=== PATIENT | male | born 1955 | race Caucasian/White ===

== ENCOUNTER 2019-10-17 18:21 | Inpatient (IN) | payer MEDICARE, OTHER, SELFPAY ==
[2019-10-17] VITALS (36 sets, daily range): BP systolic 122–187; BP diastolic 61–116; PULSE 92–117; RESP 14–26; TEMP 36.9–37.2; O2SAT 93–100
--- NOTE | ~2019-10-17 | XR_ITS ---
EXAMINATION: XR chest 1V portable DATE: 10/18/2019 05:48 INDICATION: Endotracheal tube placement. Hypothermia protocol. TECHNIQUE: frontal view of the chest was obtained. COMPARISON: Chest radiograph dated 10/17/2019 FINDINGS: Endotracheal tube tip 3.3 cm above the deshawn. Nasogastric tube extends below the left hemidiaphragm with distal tip collimated off the study. Right internal jugular central venous catheter with distal tip in the caudal vena cava. Small lung volumes. Persistent mild perihilar and infrahilar opacities. No pleural effusion or pneumo thorax. Cardiomegaly. Internal plate and screw fixation at the proximal right humerus. IMPRESSION: 1. Small lung volumes with persistent perihilar and infrahilar opacities which could represent mild p ulmonary edema, atelectasis, pneumonia or some combination thereof. 2. Cardiomegaly. Reviewed, dictated and finalized at location A. IMPRESSION: 1. Small lung volumes with persistent perihilar and infrahilar opacities which could represent mild pulmonary edema, atelectasis, pneumonia or some combinatio n thereof. 2. Cardiomegaly.
--- NOTE | ~2019-10-17 | CT_ITS ---
EXAMINATION: CT brain wo con EXAM DATE: 10/17/2019 20:06 INDICATION: Unresponsive. Respiratory failure. TECHNIQUE: Spiral CT of the head was performed without contrast. Axial, coronal and sagittal images were reviewed. The dose-length product (DLP) for this examination was 681.00 mGy-cm. The exposure w as tailored according to patient size, and iterative reconstruction (ASIR) was used as additional dos e reduction technique. There is no prior study for comparison. FINDINGS: There is no acute intraparenchymal hemorrhage. No evidence of intraparenchymal brain mass lesion. No evidence of acute infarction. There is no mass effect or midline shift. The ventricles are normal in size. There are no extra-axial collections. There are no acute calvarial fractures. T he orbits are unremarkable. Soft tissue is unremarkable. The visualized sinuses and mastoid air marcell ls are well aerated. IMPRESSION: 1. No acute intracranial findings. Reviewed, dictated and finalized at location A.
--- NOTE | ~2019-10-17 | XR_ITS ---
EXAMINATION: XR chest port-a-cath/central EXAM DATE: 10/17/2019 22:10 INDICATION: Line placement. TECHNIQUE: Portable AP frontal chest x-ray was obtained. Comparison is made to prior examination from earlier same date. FINDINGS: Interval insertion of a right-sided IJ venous line in position. Endotracheal tube tip is 4 centimeters above the deshawn (ideal range is between 2 to 5 cm). Feeding tube is in position. There is mild cardiomegaly and possible bilateral perihilar edema or pneumonia. There are no sizable pleural effusions. There is no pneumothorax suspected. Right humeral hardware. IMPRESSION: 1. Tubes, lines in position, no evidence pneumothorax. 2. Cardiomegaly. Possible perihilar edema or pneumonia. Reviewed, dictated and finalized at location A.
--- NOTE | ~2019-10-17 | XR_ITS ---
EXAMINATION: XR chest 1V portable DATE: 10/20/2019 06:05 INDICATION: Respiratory failure TECHNIQUE: frontal view of the chest was obtained. COMPARISON: Chest radiograph dated 10/19/2019 FINDINGS: Endotracheal tube tip 4.0 cm above the deshawn. Nasogastric tube extends below the left hemidiaphragm with distal tip collimated off the study. Right internal jugular central venous catheter with distal tip at the caudal superior vena cava. Significant improvement in prior opacities in the bilateral lower lung zones particularly on the left . There is residual patchy opacities in the right mid, left lower lung zones and and bilateral perihi lar regions. Calcified nodules in the left upper lung zone consistent with old granulomatous disease. No pleural effusion or pneumothorax. Cardiomegaly. IMPRESSION: 1. Resolution of prior pleural effusions with significant improvement in bilateral lung disease which could represent atelectasis, pulmonary edema, pneumonia or some combination thereof. 2. Cardiomegaly. Reviewed, dictated and finalized at location A. IMPRESSION: 1. Resolution of prior pleural effusions with significant improvement in bilate ral lung disease which could represent atelectasis, pulmonary edema, pneumonia or some combination thereof. 2. Cardiomegaly.
--- NOTE | ~2019-10-17 | US_ITS ---
EXAMINATION: US arterial duplex LE RT DATE: 10/23/2019 13:57 INDICATION: Postprocedure hemorrhage of a circulatory system organ or structure following a cardiac c ath, bypass, or other circulatory system procedure. TECHNIQUE: Multiple grayscale and Doppler ultrasound images of the right inguinal region were obtaine d. COMPARISON: None FINDINGS: There is normal flow in right common femoral artery, superficial femoral artery, and profun da femoral artery. No pseudoaneurysm. Right common femoral vein and femoral vein are patent. There is 11.0 x 11.1 x 4.1 cm hematoma in right inguinal region. IMPRESSION: 1. No pseudoaneurysm. 2. Hematoma in right inguinal region. Reviewed, dictated and finalized at location A.
--- NOTE | ~2019-10-17 | XR_ITS ---
EXAMINATION: XR chest 1V portable DATE: 10/19/2019 06:22 INDICATION: Cardiac arrest. Intubated. TECHNIQUE: frontal view of the chest was obtained. COMPARISON: Chest radiograph dated 10/18/2019 FINDINGS: Endotracheal tube tip 5.0 cm above the deshawn. Right internal jugular central venous catheter with di stal tip at the caudal superior vena cava. Nasogastric tube extends below the left hemidiaphragm wit h distal tip collimated off the study. Gradient of hazy airspace opacities at the bilateral lower lung zones, more prominent on the left whe re there is obscuration of the left hemidiaphragm. No pneumothorax. Cardiomegaly. IMPRESSION: 1. Opacities in the bilateral lower lung zones, left greater than right, consistent with small bilate ral posteriorly layering pleural effusions with associated atelectasis and/or pneumonia. 2. Cardiomegaly. Reviewed, dictated and finalized at location A. IMPRESSION: 1. Opacities in the bilateral lower lung zones, left greater than right, consis tent with small bilateral posteriorly layering pleural effusions with associate d atelectasis and/or pneumonia. 2. Cardiomegaly.
--- NOTE | ~2019-10-17 | XR_ITS ---
EXAMINATION: XR chest 1V portable DATE: 10/21/2019 06:05 INDICATION: Respiratory failure TECHNIQUE: frontal view of the chest was obtained. COMPARISON: Chest radiograph dated 10/20/2019 FINDINGS: Right internal jugular central venous catheter with distal tip at the midsuperior vena cava. Increase d expansion of lungs which are clear with no focal airspace opacities, pulmonary edema, pleural effus ion or pneumothorax. The cardiomediastinal silhouette is normal. IMPRESSION: 1. Improved expansion of lungs with no evident acute cardiopulmonary disease. Reviewed, dictated and finalized at location A.
--- NOTE | ~2019-10-17 | XR_ITS ---
EXAMINATION: XR abdomen NG/feed tube rechec EXAM DATE: 10/17/2019 19:37 INDICATION: Feeding tube advanced. TECHNIQUE: Frontal projection(s) of the abdomen for interpretation. Comparison is made to prior exami nation from earlier same date. FINDINGS: Feeding tube projects over gastric body, expected position. There are cholecystectomy clip s. Nonobstructive bowel gas pattern. Mild thoracolumbar scoliosis. Moderate-sized lower thoracic brid ging endplate osteophytes. IMPRESSION: Feeding tube in position. Reviewed, dictated and finalized at location A. IMPRESSION: Feeding tube in position.
--- NOTE | ~2019-10-17 | XR_ITS ---
EXAMINATION: XR chest ET placement, XR abdomen NG/feed tube insert EXAM DATE: 10/17/2019 19:01 INDICATION: Cardiac arrest. TECHNIQUE: Portable AP frontal chest x-ray was obtained. KUB exam. There is no prior study for compar joey. FINDINGS: There are 2 images available, one has the ET tube in the right mainstem bronchus, the other the tube is at the deshawn. ET tube should be retracted 2 cm. Feeding tube tip in stomach but side po rt above the gastroesophageal junction, could be advanced 5-10 cm. There is pulmonary vascular congestion. The cardiac silhouette is enlarged. There may be left perihil ar edema or pneumonia. No pneumothorax or pleural effusion. There is nonobstructive bowel gas pattern . There are cholecystectomy clips. Right humeral hardware. IMPRESSION: 1. ET tube should be retracted 2-3 cm. Both lungs being aerated at present. 2. Feeding tube could be safely advanced 5-10 cm. 3. Cardiomegaly, congestion. 4. Possible left perihilar edema or pneumonia. Reviewed, dictated and finalized at location A. IMPRESSION: 1. ET tube should be retracted 2-3 cm. Both lungs being aerated at present. 2. Feeding tube could be safely advanced 5-10 cm. 3. Cardiomegaly, congestion. 4. Possible left perihilar edema or pneumonia.
--- NOTE | ~2019-10-17 | XR_ITS ---
EXAMINATION: XR chest ET placement EXAM DATE: 10/17/2019 19:37 INDICATION: Recheck ET tube. TECHNIQUE: Portable AP frontal chest x-ray was obtained. Comparison is made to prior examination from earlier same date. FINDINGS: Endotracheal tube tip is 2 centimeters above the deshawn (ideal range is between 2 to 5 cm). Feeding tube is in position. There is mild cardiomegaly and possible left perihilar developing edema or pneumonia. There are no s izable pleural effusions. There is no pneumothorax suspected. The bones and soft tissues are unre markable. IMPRESSION: 1. Tubes in position. 2. Cardiomegaly. Possible developing left perihilar edema or pneumonia. Reviewed, dictated and finalized at location A.
--- NOTE | 2019-10-17 18:00 | ECG_ITS ---
Measurements Intervals [place] Rate: 94 P: 72 FL: 140 QRS: 54 QRSD: 106 T: 58 QT: 357 QTc: 447 Interpretive Statements SINUS RHYTHM INCOMPLETE RIGHT BUNDLE BRANCH BLOCK BORDERLINE ECG Electronically Signed On 10-18-2019 7:17:05 CDT by Torrey Guzmán D.O.
--- NOTE | 2019-10-17 18:30 | PC.NURSE ---
AURELIO for propofol from Dr. Melendez
[2019-10-17 18:36] LABS: Alveolar/Arterial O2 Gradient 489.8 mmHg; Base Excess ABG -4.4 mEq/l (+/-2.0); Fractional Inspired Oxygen 100 %; HCO3 ABG 21.2 mEq/l (22.0-26.0); Oxygen Content ABG 22.8 %vol (16.0-22.0); Oxygen Saturation ABG 99.2 % (95.0-100.0); Oxyhemoglobin 98.1 % THb (90.0-100.0); PCO2 ABG 41.2 mmHg (35.0-45.0); PO2 FiO2 Ratio Arterial Blood 1.82 %; Total Hemoglobin 16.3 g/dL (12.0-18.0)
--- NOTE | 2019-10-17 18:36 | ED.GENADULT ---
HPI - General Adult General Chief complaint: Cardiac Arrest/CPR Stated complaint: ROSC Source: EMS History of Present Illness HPI narrative: Patient is a 64 y/o female brought in by EMS for cardiac arrest. Per EMS, family noticed that patient was foaming at the mouth , and then became unresponsive. CPR was not started prior to EMS arrival. EMS arrived in about 5 minutes and noticed that patient was pulseness and apneic. CPR was started immediately after EMS arrival. When monitor was applied, it showed PEA, then V fib. Patient was defibrillated x 1. He was given Epi and Narcan. ROSC was achieved in about 2 minutes after EMS arrival. Patient is unresponsive and unable to provide additional history. states that patient came back from outside complaining of not feeling good then his eyes rolled back, he was shaking and became unresponsive. states that patient drinks heavily at baseline. Related Data Home Medications Medication Instructions Recorded Confirmed hydrochlorothiazide 12.5 mg PO DAILY 10/17/19 10/18/19 losartan 100 mg PO DAILY 10/17/19 10/18/19 sildenafil 100 mg PO DAILY PRN 10/17/19 10/18/19 simvastatin 40 mg PO DAILY 10/17/19 10/18/19 pantoprazole 40 mg PO DAILY 10/18/19 10/18/19 trazodone 50 mg PO HS 10/18/19 10/18/19 Allergies Allergy/AdvReac Type Severity Reaction Status Date / Time latex Allergy Hives Verified 10/17/19 18:37 Review of Systems Review of Systems: ROS unobtainable: Yes unobtainable due to medical condition PMFSH Past Medical History Medical History Essential hypertension GERD (gastroesophageal reflux disease) Hyperlipidemia Obesity Surgical History Surgical History History of bilateral inguinal hernia repair Status post right rotator cuff repair Family History Family History (Updated 10/18/19 @ 11:46 by David Stewart MD) Father Leukemia Other Unknown family medical history Social History Social History Social History: Primary care physician: Dr. Andrei Claire Cods status: Full Code Smoking packs per day: 1 Smoking cigarettes per day: 20.0 Years smoked: 10 Smoking pack-years: 10.00 Smoking status: Former smoker Alcohol intake: current Drinks per week: 30 Alcohol use details: He drinks approximately 5 alcoholic beverages a day. Substance use: unknown Substance use type: marijuana Other substance usage details: medical marijuana chocolates Last use: 10/16/2019 Living arrangements: with family Additional living arrangements comments: the patient lives in [place] with his of 28 years. He has 3 biologic children and 2 step children who are all adults. 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 Gender identity (if verbalized by the patient): Male Spiritual care concerns: No Exam Const: General: no acute distress and well developed Orientation/consciousness: Other orientation findings (unrepsonsive) HENMT: Head: normocephalic Ears: external ears normal General nose exam: Normal external nose present Mouth: Yes other (ETT in place) Eyes: General: appearance normal, both eyes and all related structures Conjunctivae: conjunctivae normal Neck: Neck: normal visual inspection and full ROM Chest: Chest palpation & inspection: normal inspection of the chest and no tenderness Resp: Effort & Inspection: normal respiratory effort Auscultation: clear to auscultation bilaterally Cardio: Rate: regular rate Rhythm: regular rhythm GI: GI Palp: No abdominal tenderness and Yes Soft to palpation Skin: General skin exam: normal color and turgor normal Neuro: General: other (unresponsive) Extrem: General: normal to inspection, full ROM and no pedal edema Psych:
[2019-10-17 18:37] LABS: Arterial Blood Gas PEEP 5 cmH2O; Arterial Blood Gas Tidal Volume 450 ml; Arterial Blood Gas Vent Mode ASSIST CONTROL; Arterial Blood Gas Ventilator rate 18 /MIN; Device VENTILATOR; Modified Allen's Test Pass; Site Drawn RIGHT RADIAL
--- NOTE | 2019-10-17 18:40 | PC.NURSE ---
Propofol increased to 10mcg, pt moving and withdrawing to pain
--- NOTE | 2019-10-17 18:49 | PC.NURSE ---
Propofol increased to 15 mcg, pt still moving
--- NOTE | 2019-10-17 18:53 | PC.NURSE ---
Taking pt to Ct at this time, respiratory escorting
[2019-10-17 19:07] LABS: Basophils Absolute Auto 0.1 K/mm3 (0.0-0.1); Basophils Percent Auto 0.8 % (0.2-1.2); Eosinophils Absolute Auto 0.1 K/mm3 (0-0.3); Eosinophils Percent Auto 0.6 % (0-4.4); Hematocrit 48.8 % (42.0-52.0); Hemoglobin 15.8 g/dL (14.0-18.0); Immature Granulocyte Absolute 0.11 K/mm3 (0.00-0.031); Immature Granulocyte Percent A 1.4 % (0-0.5); Lymphocytes Absolute Auto 1.09 K/mm3 (0.9-3.2); Lymphocytes Percent Auto 13.7 % (18.3-44.2); Mean Corpuscular HGB Conc 32.4 g/dl (32-36); Mean Corpuscular Hemoglobin 31.6 pg (26-34); Mean Corpuscular Volume 97.6 fl (80-100); Mean Platelet Volume 9.4 fl (7.4-10.4); Monocytes Absolute Auto 0.5 K/mm3 (0.1-0.6); Neutrophils Absolute Auto 6.2 K/mm3 (1.3-6.7); Neutrophils Percent Auto 77.5 % (45.5-73.1); Platelet Count Result 258 k/mm3 (150-375); Red Cell Distribution Width 13.4 % (11.5-14.5)
[2019-10-17 19:18] LABS: Alanine Aminotransferase 326 U/L (4-50); Albumin Level 4.1 g/dL (3.5-5.1); Alkaline Phosphatase 138 U/L (38-126); Anion Gap 10 mmol/L (8-16); Aspartate Amino Transferase 599 U/L (17-59); Bilirubin,Total 0.6 mg/dL (0.2-1.3); Blood Urea Nitrogen 21 mg/dL (9-20); Calcium 8.7 mg/dL (8.4-10.2); Carbon Dioxide 23 mmol/L (22-30); Chloride 108 mmol/L (98-107); Cholesterol 218 mg/dL (0-200); Estimated CRCL calculation 84 ml/min; Estimated Glomerular Filt Rate > 60; Glucose 227 mg/dL (75-110); HDL Direct 66 mg/dL; Potassium 3.3 mmol/L (3.4-5.0); Sodium 141 mmol/L (137-145); Triglycerides 102 mg/dL (<150)
[2019-10-17 19:21] LABS: Prothrombin Time 13.1 Seconds (11.1-14.7)
[2019-10-17 19:22] LABS: Partial Thromboplastin Time 29.2 SECONDS (22.3-36.8)
[2019-10-17 19:29] LABS: LDL Cholesterol Direct 135 mg/dL
--- NOTE | 2019-10-17 19:30 | PC.NURSE ---
Per verbal order of Dr. Melendez, ETT withdrawn 3 cm and is now secured at 24 cm at the lips. OG tube was also advanced to 65 cm at this time per verbal order of Dr. Melendez. Xray was obtained to verify correct position of both tubes
[2019-10-17 19:31] LABS: Add Urine Microscopic? YES; Appearance Urine Cloudy (Clear); Bacteria Urine Trace /hpf; Bilirubin Urine Negative (Negative); Blood Urine 1+ (Negative); Color Urine Yellow (Yellow); Glucose Urine UA 1+ mg/dL (Negative); Hyaline Casts Urine 20-29 /lpf; Ketones Urine Negative (Negative); Leukocyte Esterase Ur Negative LEU/UL (Negative); Mucus Urine Rare /lpf; Nitrate Urine Negative (Negative); Protein Urine 3+ mg/dL (Negative); Squamous Epithelial Cell Urine Rare /hpf (Few); Urobilinogen Urine Negative mg/dL (<2.0)
[2019-10-17] MEDS: PROPOFOL IV EMULSION 100 ML 32.4 MG IV CONT ×2 (19:40→21:30)
--- NOTE | 2019-10-17 19:42 | PC.NURSE ---
Per verbal order of Dr. Al EDP, increase propofol drip to 50 mcg/kg/min.
--- NOTE | 2019-10-17 20:06 | PC.NURSE ---
vent setting at this time: Vt: 450 PEEP: 5 FIO2: 0.4 Rate: 18
[2019-10-17 20:11] LABS: Amphetamine Screen Urine Negative (Negative); Barbiturate Screen Urine Negative (Negative); Benzodiazepines Screen Urine Negative (Negative); Cannabinoid Screen Urine Positive (Negative); Cocaine Screen Urine Negative (Negative); Methadone Screen Urine Negative (Negative); Opiate Screen Urine Positive (Negative); Phencyclidine Screen Urine Negative (Negative)
[2019-10-17] MEDS: AMIODARONE 150 MG/D5W 100 ML 150 MG/100 ML BAG 600 MG IV CONT (20:59)
[2019-10-17] MEDS: AMIODARONE 360 MG/D5W 200 ML 360 MG/200 ML BAG 33.3 MG IV CONT (21:19)
[2019-10-17] MEDS: POTASSIUM CHLORIDE 20 MEQ TABLET PO (21:20)
[2019-10-17 21:36] LABS: Ethanol < 10 mg/dL (<10)
--- NOTE | 2019-10-17 22:24 | PM.IMHP ---
H&P: HPI History of Present Illness Date/Time: 10/17/19 21:20 Chief complaint: Unresponsive, found pulseless Narrative: Héctor Funes is a 64 year old male with a past medical history of hypertension, hyperlipidemia and chronic pain who presented to the ER from home after his witnessed him go unresponsive patient was found to be pulseless on EMS arrival to the home. Source of information is patient is 's report. his reports that the patient had when out to walk the dog and was not out for very long when he returned home and stated that it was too hot. She went to get him a glass of cold water. When she came back in the room the patient was in his chair with his eyes rolled back and had bubbles coming from his mouth. His called EMS but was unable to initiate CPR she has a fractured extremity. EMS arrived in about 5 minutes At which time the patient was pulseless and apneic. CPR was initiated,monitor was applied and the patient received a dose of Narcan and epinephrine. Monitor initially demonstrated PEA. On repeat evaluation the patient was in VFib. the patient was subsequently defibrillated x1 and had return of perfusing rhythm. The patient was intubated in the field with a 7.5 ET tube measuring 22 cm at the lip. The patient was reportedly bucking at the tube on arrival to the ER. At the time of my evaluation the patient was on propofol amiodarone and had received a dose of oral potassium. The patient's reports that the patient had not been complaining of any shortness of breath or chest pain. He does have chronic right shoulder pain for which she is on muscle relaxers and Calvin. he had not been having any recent cough or congestion. He has been dieting and exercising and has lost 35 lb since April. She reports that he has been exercising regularly until a couple months ago whenever she broke her hand. He then was exercising less but had worked out this morning without difficulty. The patient does drink alcohol to excess and usually drinks about 5 alcoholic beverages a night. His alcohol consumption has increased over the last several months. She has not noticed him being irritable or having symptoms of alcohol withdrawal. Family History: Unknown as the patient is adopted. He does have 3 biologic children the reportedly healthy. The patient was seen and examined while in the ER. Review of Systems Review of Systems: ROS unobtainable: Yes unobtainable due to endotracheal tube PMFSH Past Medical History Medical History Essential hypertension GERD (gastroesophageal reflux disease) Hyperlipidemia Obesity Surgical History Surgical History History of bilateral inguinal hernia repair Status post right rotator cuff repair Family History Family History Other Unknown family medical history Social History Social History (Updated 10/17/19 @ 22:43 by Naima You DO) Social History: Primary care physician: Dr. Andrei Claire Cods status: Full Code Smoking packs per day: 1 Smoking cigarettes per day: 20.0 Years smoked: 10 Smoking pack-years: 10.00 Smoking status: Former smoker Alcohol intake: current Drinks per week: 35 Alcohol use details: He drinks approximately 5 alcoholic beverages a day. Substance use: current Substance use type: marijuana Other substance usage details: medical marijuana chocolates Last use: 10/16/2019 Living arrangements: with family Additional living arrangements comments: the patient lives in [place] with his of 28 years. He has 3 biologic children and 2 step children who are all adults. 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 Gender identity (if verbalized by the patie
[2019-10-18] VITALS (71 sets, daily range): BP systolic 120–204; BP diastolic 39–103; PULSE 34–98; RESP 18–26; TEMP 32.2–37.8; O2SAT 95–100; BMI 33.8; BMI 33.7
[2019-10-18] MEDS: PROPOFOL IV EMULSION 100 ML 32.4 MG IV CONT ×3 (00:10→06:26)
--- NOTE | 2019-10-18 02:05 | P.PCNBED_ITS ---
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 The procedure was converted to a right femoral art line. Arterial blood return was obtained with ultrasound guidance. Sterile ultrasound probe cover was utilized. Guidewire threaded without difficulty. Catheter was placed over guidewire. After the art line was sutured in place and dressed we did have a brief loss of waveform. The dressing was removed in the catheter was repositioned and secured. Waveform returned.
[2019-10-18] MEDS: CISATRACURIUM BESYLATE 20 MG/10 ML VIAL 16.2 MG IV PUSH (02:29)
[2019-10-18 02:30] LABS: Alveolar/Arterial O2 Gradient 138.2 mmHg; Base Excess ABG -1.8 mEq/l (+/-2.0); Carboxyhemoglobin 0.2 % THb (0-2.0); Fractional Inspired Oxygen 40 %; HCO3 ABG 22.7 mEq/l (22.0-26.0); Methemoglobin ABG 0.4 %THb (0-1.5); Oxygen Content ABG 22.4 %vol (16.0-22.0); Oxygen Saturation ABG 97.7 % (95.0-100.0); Oxyhemoglobin 96.9 % THb (90.0-100.0); PO2 ABG 103.3 mmHg (80.0-100.0); PO2 FiO2 Ratio Arterial Blood 2.58 %; Reduced Hemoglobin 2.5 %THb (0-5.0); Total Hemoglobin 16.4 g/dL (12.0-18.0); pH ABG 7.394 (7.350-7.450)
[2019-10-18 02:33] LABS: Device VENTILATOR; Site Drawn ARTLINE
[2019-10-18 02:34] LABS: Arterial Blood Gas PEEP 5 cmH2O; Arterial Blood Gas Tidal Volume 450 ml; Arterial Blood Gas Vent Mode CMV; Arterial Blood Gas Ventilator rate 18 /MIN
[2019-10-18 02:57] LABS: Glucose Point of Care 126 (65-105)
[2019-10-18] MEDS: AMIODARONE 360 MG/D5W 200 ML 360 MG/200 ML BAG 16.7 MG IV CONT (03:45)
[2019-10-18 04:33] LABS: Glucose Point of Care 121 (65-105)
[2019-10-18 05:01] LABS: Glucose Point of Care 124 (65-105)
[2019-10-18 05:02] LABS: Hematocrit 47.5 % (42.0-52.0); Hemoglobin 15.8 g/dL (14.0-18.0); Mean Corpuscular HGB Conc 33.3 g/dl (32-36); Mean Corpuscular Hemoglobin 31.9 pg (26-34); Mean Platelet Volume 9.1 fl (7.4-10.4); Platelet Count Result 234 k/mm3 (150-375); Red Blood Count 4.95 M/mm3 (4.6-6.20); Red Cell Distribution Width 13.6 % (11.5-14.5); White Blood Count 9.6 K/mm3 (4.5-10.0)
--- NOTE | 2019-10-18 05:08 | PC.NURSE ---
This patient, Héctor Funes, was admitted to Intensive Care Unit-8 at 0000. Patient/family oriented to hospital policies and general routines including ID bracelet, bed and alarms, visiting hours, pain management, procedures, bathroom and other care routines, personal items, smoking policy, room service/diet, and visiting hours. Valuables list has been completed. Information on how to activate the Rapid Response Team has been discussed. Patient/Family are encouraged to report perceived risks to care and to ask questions if they do not understand what they are told or what they should do.
[2019-10-18 05:13] LABS: Lactic Acid 1.1 mmol/L (0.7-2.1)
[2019-10-18 05:19] LABS: Prothrombin Time 12.7 Seconds (11.1-14.7)
[2019-10-18 05:20] LABS: Partial Thromboplastin Time 31.6 SECONDS (22.3-36.8)
[2019-10-18 05:22] LABS: NT Pro B Type Natriuretic Pept 1120 PG/ML (5-100)
[2019-10-18 05:31] LABS: Anion Gap 7 mmol/L (8-16); Blood Urea Nitrogen 20 mg/dL (9-20); Calcium 8.5 mg/dL (8.4-10.2); Carbon Dioxide 24 mmol/L (22-30); Chloride 107 mmol/L (98-107); Estimated CRCL calculation 137 ml/min; Estimated Glomerular Filt Rate > 60; Glucose 150 mg/dL (75-110); Potassium 3.5 mmol/L (3.4-5.0); Sodium 138 mmol/L (137-145)
--- NOTE | 2019-10-18 06:00 | ECG_ITS ---
Measurements Intervals [place] Rate: 54 P: 27 AR: 180 QRS: 50 QRSD: 114 T: 47 QT: 567 QTc: 539 Interpretive Statements SINUS BRADYCARDIA INCOMPLETE RIGHT BUNDLE BRANCH BLOCK PROLONGED QT INTERVAL BASELINE WANDER- V6 ABNORMAL ECG Electronically Signed On 10-18-2019 14:07:29 CDT by Torrey Guzmán D.O.
[2019-10-18 06:05] LABS: Glucose Point of Care 126 (65-105)
[2019-10-18 07:01] LABS: Glucose Point of Care 132 (65-105)
[2019-10-18 07:45] LABS: Alveolar/Arterial O2 Gradient 150.5 mmHg; Carboxyhemoglobin 0.1 % THb (0-2.0); Fractional Inspired Oxygen 40 %; HCO3 ABG 20.4 mEq/l (22.0-26.0); Methemoglobin ABG 0.3 %THb (0-1.5); Oxygen Content ABG 22.7 %vol (16.0-22.0); Oxygen Saturation ABG 98.2 % (95.0-100.0); Oxyhemoglobin 97.5 % THb (90.0-100.0); PCO2 ABG 26.8 mmHg (35.0-45.0); PO2 ABG 103.9 mmHg (80.0-100.0); Reduced Hemoglobin 2.1 %THb (0-5.0); Total Hemoglobin 16.5 g/dL (12.0-18.0); pH ABG 7.499 (7.350-7.450)
[2019-10-18 07:46] LABS: Site Drawn ARTLINE
[2019-10-18 07:47] LABS: Arterial Blood Gas Minute Volume 0 LPM; Arterial Blood Gas PEEP 5 cmH2O; Arterial Blood Gas Pressure Support 0 cmH2O; Arterial Blood Gas Tidal Volume 450 ml; Arterial Blood Gas Vent Mode CMV; Arterial Blood Gas Ventilator rate 20 /MIN; Device VENTILATOR; Peak Inspiratory Pressure 0 cmH2O
[2019-10-18 08:05] LABS: Glucose Point of Care 150 (65-105)
--- NOTE | 2019-10-18 08:16 | WPDCNINT ---
Assessment and Plan Assessment and plan (1) Acute respiratory failure: Code(s): J96.00 - Acute respiratory failure, unspecified whether with hypoxia or hypercapnia Status: Acute Assessment and Plan: Acute Respiratory failure secondary to V fib cardiac arrest intubated and now on mechanical ventilation Continue full mechanical ventilation support to prevent hypoxemia/hypercarbia and end organ damage. ABG and PCXR reviewed and will repeat in am decrease tidal volume to 400 and respiratory rate to 18 Low tidal volume ventilation strategy to prevent volutrauma hold Lasix at this time (2) Cardiac arrest with successful resuscitation: Code(s): I46.9 - Cardiac arrest, cause unspecified Status: Acute Assessment and Plan: Likely primary cardiac arrest due to ventricular fibrillation check cardiac echocardiogram cardiology consulted patient was started on amiodarone infusion which had to be stopped this morning due to extreme sinus bradycardia (3) Ventricular fibrillation: Code(s): I49.01 - Ventricular fibrillation Status: Acute Assessment and Plan: no major electrolyte abnormality to explain may have coronary artery disease cardiology consult and echocardiogram (4) Sinus bradycardia: Code(s): R00.1 - Bradycardia, unspecified Status: Acute Assessment and Plan: extreme sinus bradycardia once patient was on hypothermia protocol with rate dropping to 30s amiodarone discontinued propofol was changed to Versed infusion atropine 1 mg IV given monitor (5) Hypertension: Qualifiers: Hypertension type: essential hypertension Qualified Code(s): I10 - Essential (primary) hypertension Code(s): I10 - Essential (primary) hypertension Status: Acute Assessment and Plan: arterial line was placed for closer blood pressure monitoring treat as needed with p.r.n. (6) Hyperlipidemia: Code(s): E78.5 - Hyperlipidemia, unspecified Status: Acute Assessment and Plan: simvastatin held due to elevated LFTs (7) NSTEMI (non-ST elevated myocardial infarction): Code(s): I21.4 - Non-ST elevation (NSTEMI) myocardial infarction Status: Acute Assessment and Plan: small rise in troponin after presentation but has trended upwards EKG did not show any ST elevation. this could be secondary to his VFib arrest, CPR, epinephrine and defibrillation but since troponin level have increased and patient is unable to provide any history due to sedation and paralysis, I will empirically start Lovenox and aspirin until cardiology evaluation hold beta-gerry and statin due to above-mentioned reasons await cardiology evaluation (8) Anoxic brain injury: Code(s): G93.1 - Anoxic brain damage, not elsewhere classified Status: Acute Assessment and Plan: head CT negative on presentation patient was moving but not purposeful on therapeutic hypothermia protocol will reassess once we warmed Additional Plan DVT prophylaxis - Lovenox Stress ulcer prophylaxis - Pepcid Nutrition - NPO Code Status - Full Code Total Critical Care Time - 45 minutes Due to a high probability of clinically significant, life threatening deterioration, the patient required my highest level of preparedness to intervene emergently and I personally spent this critical care time directly and personally managing the patient. This critical care time included obtaining a history; examining the patient; pulse oximetry; ordering and review of studies; arranging urgent treatment with development of a management plan; evaluation of patient's response to treatment; frequent reassessment; and discussions with other providers. It was exclusive of separately billable procedures and treating other patients and teaching time. Please see Assessment and Plan section and the rest of the note for further information on pa
[2019-10-18] MEDS: ATROPINE SULFATE 1 MG/ML VIAL IV PUSH (08:25)
[2019-10-18] MEDS: FAMOTIDINE 20 MG/2 ML VIAL IV PUSH (08:50)
[2019-10-18] MEDS: ASPIRIN 325 MG TABLET PO (08:51)
[2019-10-18] MEDS: ENOXAPARIN 120 MG/0.8 ML SYRINGE 110 MG SUB-Q ×2 (08:52→20:36)
[2019-10-18] MEDS: MIDAZOLAM HCL 2 MG/2 ML VIAL 4 MG IV PUSH ×2 (09:00→09:45)
[2019-10-18 09:29] LABS: Glucose Point of Care 121 (65-105)
[2019-10-18 09:40] LABS: Lactic Acid 0.8 mmol/L (0.7-2.1)
[2019-10-18 10:22] LABS: Glucose Point of Care 111 (65-105)
[2019-10-18 11:01] LABS: Glucose Point of Care 102 (65-105)
[2019-10-18 11:12] LABS: Potassium 3.1 mmol/L (3.4-5.0)
--- NOTE | 2019-10-18 11:30 | PM.CNCAR ---
Assessment and Plan Assessment and plan (1) NSTEMI (non-ST elevated myocardial infarction): Code(s): I21.4 - Non-ST elevation (NSTEMI) myocardial infarction Status: Acute Assessment and Plan: 1 uriel per kg enoxaparin q.12 hours. Aspirin 325 mg daily. No beta-gerry secondary to bradycardia. Discontinue amiodarone for now. 2D echocardiogram Doppler. Replace potassium and magnesium. An additional 40 mEq IV potassium x1. Keep K greater than 4 and magnesium greater than 2 (2) Cardiac arrest with successful resuscitation: Code(s): I46.9 - Cardiac arrest, cause unspecified Status: Acute Assessment and Plan: undergoing cooling protocol. Likely some degree of anoxic injury. If /when meaningful recovery, will pursue angiogram (3) Hypertension: Qualifiers: Hypertension type: essential hypertension Qualified Code(s): I10 - Essential (primary) hypertension Code(s): I10 - Essential (primary) hypertension Status: Acute (4) Hyperlipidemia: Code(s): E78.5 - Hyperlipidemia, unspecified Status: Acute Assessment and Plan: simvastatin 40 mg p.o. daily to be started (5) Sinus bradycardia: Code(s): R00.1 - Bradycardia, unspecified Status: Acute Assessment and Plan: Hemodynamically stable History of Present Illness History of Present Illness Consult date/time: 10/18/19 11:30 Requesting physician: Paramjit Nixon MD Consult reason: Other ( VF arrest) Reason For Visit: Unresponsive, found pulseless Narrative: date of service 10/18/2019 Reason for admission: Cardiac arrest History: Patient is a 64-year-old male who does have high blood pressure and high cholesterol but no known previous cardiac history. He went outside to walk his dog yesterday and felt hot. He came back inside and asked his for a glass of water. She brought the water 2 him in shortly thereafter she witnessed him become unresponsive. Unfortunately she recently sustained a broken arm and she could not perform CPR. EMS was immediately called. Patient was found to be pulseless and there was a thought that he was in PE a. Epinephrine was given and then later VF was demonstrated. He did retained a pulse and meaningful rhythm following defibrillation. He is currently undergoing cooling protocol. his EKG is quite unremarkable. Reportedly no significant history a recent history of chest pain, shortness of breath, syncope, presyncope, paroxysmal nocturnal dyspnea, orthopnea, edema palpitations Review of Systems Review of Systems: All systems reviewed & are unremarkable except as noted in HPI and below Constitutional: Constitutional: Denies body ache(s) Eyes: Eyes: Denies blurry vision ENT: Denies epistaxis Cardiovascular: Cardiovascular: Denies chest pain Respiratory: Respiratory: Denies dyspnea Gastrointestinal: Gastrointestinal: Denies abdominal pain Genitourinary: Genitourinary: Denies dysuria Musculoskeletal: Musculoskeletal: Denies myalgias Integumentary/Breasts: Skin/Breast: Denies dry skin and Denies unusual bruising Neurologic: Denies headache(s) Psychiatric: Psychiatric: Denies behavioral changes Endocrine: Endocrine: Denies fatigue Hematologic/Lymphatic: Hematologic/Lymphatic: Denies easy bleeding Allergic/Immunologic: Allergic/Immunologic: Denies lip swelling PMFSH Past Medical History Medical History Essential hypertension GERD (gastroesophageal reflux disease) Hyperlipidemia Obesity Surgical History Surgical History History of bilateral inguinal hernia repair Status post right rotator cuff repair Family History Family History (Updated 10/18/19 @ 11:46 by David Stewart MD) Father Leukemia Other Unknown family medical history Social History Social History (Reviewed 10/18/19 @ 11:35 by Oscar
[2019-10-18 11:43] LABS: Alveolar/Arterial O2 Gradient 109.6 mmHg; Base Excess ABG -2.5 mEq/l (+/-2.0); Carboxyhemoglobin 0.3 % THb (0-2.0); Device VENTILATOR; Fractional Inspired Oxygen 40 %; HCO3 ABG 20.3 mEq/l (22.0-26.0); Methemoglobin ABG 0.3 %THb (0-1.5); Oxygen Content ABG 22.2 %vol (16.0-22.0); Oxygen Saturation ABG 98.9 % (95.0-100.0); Oxyhemoglobin 97.8 % THb (90.0-100.0); PCO2 ABG 30.4 mmHg (35.0-45.0); PO2 ABG 140.6 mmHg (80.0-100.0); PO2 FiO2 Ratio Arterial Blood 3.52 %; Reduced Hemoglobin 1.6 %THb (0-5.0); Site Drawn ARTLINE; pH ABG 7.442 (7.350-7.450)
[2019-10-18 11:44] LABS: Arterial Blood Gas Minute Volume 0 LPM; Arterial Blood Gas PEEP 5 cmH2O; Arterial Blood Gas Pressure Support 0 cmH2O; Arterial Blood Gas Tidal Volume 400 ml; Arterial Blood Gas Vent Mode CMV; Arterial Blood Gas Ventilator rate 18 /MIN; Peak Inspiratory Pressure 0 cmH2O
[2019-10-18 11:48] LABS: Alanine Aminotransferase 284 U/L (4-50); Albumin Level 3.9 g/dL (3.5-5.1); Alkaline Phosphatase 114 U/L (38-126); Aspartate Amino Transferase 200 U/L (17-59); Bilirubin,Total 0.6 mg/dL (0.2-1.3)
[2019-10-18 12:55] LABS: Glucose Point of Care 112 (65-105)
[2019-10-18] MEDS: SIMVASTATIN 20 MG TABLET 40 MG FEED TUBE (13:34)
--- NOTE | 2019-10-18 14:00 | ECG_ITS ---
Measurements Intervals [place] Rate: 76 P: 33 NH: 173 QRS: 51 QRSD: 112 T: 21 QT: 461 QTc: 521 Interpretive Statements SINUS RHYTHM INCOMPLETE RIGHT BUNDLE BRANCH BLOCK PROLONGED QT INTERVAL ABNORMAL ECG Electronically Signed On 10-18-2019 9:50:41 CDT by Torrey Guzmán D.O.
[2019-10-18 14:14] LABS: Glucose Point of Care 83 (65-105)
[2019-10-18 15:13] LABS: Glucose Point of Care 99 (65-105)
[2019-10-18 15:38] LABS: Creatine Kinase 538 U/L (55-170); Lactic Acid 0.5 mmol/L (0.7-2.1)
[2019-10-18 15:47] LABS: Alveolar/Arterial O2 Gradient 110.1 mmHg; Base Excess ABG -1.6 mEq/l (+/-2.0); Carboxyhemoglobin 0.3 % THb (0-2.0); Fractional Inspired Oxygen 40 %; HCO3 ABG 20.2 mEq/l (22.0-26.0); Methemoglobin ABG 0.3 %THb (0-1.5); Oxygen Content ABG 22.4 %vol (16.0-22.0); Oxyhemoglobin 97.9 % THb (90.0-100.0); PCO2 ABG 27.6 mmHg (35.0-45.0); PO2 ABG 143.4 mmHg (80.0-100.0); PO2 FiO2 Ratio Arterial Blood 3.58 %; Reduced Hemoglobin 1.5 %THb (0-5.0); Total Hemoglobin 16.1 g/dL (12.0-18.0); pH ABG 7.483 (7.350-7.450)
[2019-10-18 15:48] LABS: Site Drawn ARTLINE
[2019-10-18 15:49] LABS: Arterial Blood Gas PEEP 5 cmH2O; Arterial Blood Gas Tidal Volume 400 ml; Arterial Blood Gas Vent Mode CMV; Arterial Blood Gas Ventilator rate 18 /MIN; Device VENTILATOR
--- NOTE | 2019-10-18 16:26 | PM.IMPN ---
Progress Note: A&P Assessment and Plan (1) Cardiac arrest with successful resuscitation: Code(s): I46.9 - Cardiac arrest, cause unspecified Status: Acute Assessment and Plan: Likely primary cardiac arrest due to cardiac arrhythmia and/or AK. Patient is being admitted to the ICU for cooling protocol. He is intubated and sedated. Pt is on amiodarone drip Watch BMp mg and phos levels Pt had VF arrest leaving him with some anoxic brain injury Once warmed pt will have Anoxic brain testing (2) Hypertension: Qualifiers: Hypertension type: essential hypertension Qualified Code(s): I10 - Essential (primary) hypertension Code(s): I10 - Essential (primary) hypertension Status: Acute Assessment and Plan: Continue to monitor blood pressures closely. Subjective Date/time seen: 10/18/19 16:26 Interval history: 64 year old male with a past medical history of hypertension, hyperlipidemia and chronic pain who presented to the ER from home after his witnessed him go unresponsive patient was found to be pulseless on EMS arrival to the home. Pt had VF arrest leaving him with some anoxic brain injury by his bedside Pt undergoing warming with bear hugger in ICU Review of Systems Review of Systems: ROS unobtainable: Yes unobtainable due to medical condition Exam Narrative: Exam Narrative: Bear hugger Dificulty to fully exam under bear hugger Pt is bradycardic and tilted to one side Objective Data Vital Signs Vital Signs: Vital Signs - 24 hr 10/17/19 18:09 10/17/19 18:28 10/17/19 18:39 Temperature Pulse Rate 94 95 94 Respiratory Rate 20 Blood Pressure 123/89 Pulse Oximetry 100 98 10/17/19 18:42 10/17/19 19:20 10/17/19 19:21 Temperature Pulse Rate 95 105 H 105 H Respiratory Rate 14 Blood Pressure 122/61 141/98 H Pulse Oximetry 97 96 10/17/19 19:30 10/17/19 19:33 10/17/19 19:40 Temperature Pulse Rate 105 H 105 H 113 H Respiratory Rate 22 H 18 19 Blood Pressure 147/102 H Pulse Oximetry 98 93 10/17/19 19:45 10/17/19 20:06 10/17/19 20:08 Temperature Pulse Rate 110 H 114 H 115 H Respiratory Rate 23 H 18 21 H Blood Pressure 165/116 H Pulse Oximetry 98 96 98 10/17/19 20:15 10/17/19 20:20 10/17/19 20:21 Temperature Pulse Rate 113 H 112 H 92 Respiratory Rate 22 H 20 Blood Pressure 154/96 H Pulse Oximetry 96 97 96 10/17/19 20:49 10/17/19 20:59 10/17/19 21:00 Temperature 37.0 C Pulse Rate 114 H 117 H 117 H Respiratory Rate 21 H 20 Blood Pressure 187/93 H 187/93 H Pulse Oximetry 97 97 10/17/19 21:15 10/17/19 21:16 10/17/19 21:18 Temperature Pulse Rate 111 H 111 H 110 H Respiratory Rate 20 18 Blood Pressure 171/99 H 171/99 H Pulse Oximetry 97 97 10/17/19 21:19 10/17/19 21:30 10/17/19 21:31 Temperature Pulse Rate 109 H 109 H 109 H Respiratory Rate 19 19 Blood Pressure 171/99 H 172/96 H Pulse Oximetry 97 97 10/17/19 21:45 10/17/19 21:46 10/17/19 22:00 Temperature Pulse Rate 107 H 108 H 111 H Respiratory Rate 20 21 H 23 H Blood Pressure 155/89 H Pulse Oximetry 97 98 97 10/17/19 22:01 10/17/19 22:15 10/17/19 22:17 Temperature 37.2 C Pulse Rate 110 H 103 H 100 Respiratory Rate 25 H 20 Blood Pressure 183/101 H 136/88 Pulse Oximetry 97 98 98 10/17/19 22:30 10/17/19 22:31 10/17/19 22:45 Temperature Pulse Rate 97 98 97 Respiratory Rate 16 17 21 H Blood Pressure 132/80 Pulse Oximetry 95 97 97 10/17/19 22:46 10/17/19 23:01 10/17/19 23:16 Temperature 36.9 C Pulse Rate 98 96 93 Respiratory Rate 22 H 26 H 21 H Blood Pressure 141/90 H 127/87 126/90 Pulse Oximetry 99 98 98 10/18/19 00:00 10/18/19 00:10 10/18/19 00:15 Temperature 37.0 C Pulse Rate 90 88 98 Respiratory Rate 20 20 Blood Pressure 129/82 Pulse Oximetry 95 97 10/18/19 01:00 10/18/19 02:00 10/18/19 02:11 Temperature 37.7 C H Pulse Rate 8
[2019-10-18] MEDS: DEXTROSE 50% 25 GM/50 ML SYRINGE IV PUSH (17:34)
[2019-10-18 17:58] LABS: Glucose Point of Care 113 (65-105)
[2019-10-18 17:58] LABS: Glucose Point of Care 67 (65-105)
[2019-10-18 18:31] LABS: Glucose Point of Care 123 (65-105)
[2019-10-18 18:49] LABS: Anion Gap 6 mmol/L (8-16); Blood Urea Nitrogen 17 mg/dL (9-20); Calcium 8.2 mg/dL (8.4-10.2); Carbon Dioxide 26 mmol/L (22-30); Chloride 106 mmol/L (98-107); Creatine Kinase 492 U/L (55-170); Estimated CRCL calculation 162 ml/min; Estimated Glomerular Filt Rate > 60; Glucose 134 mg/dL (75-110); Magnesium 2.1 mg/dL (1.6-2.3); Potassium 2.6 mmol/L (3.4-5.0); Sodium 138 mmol/L (137-145)
[2019-10-18 18:54] LABS: Hemoglobin 15.7 g/dL (14.0-18.0); Mean Corpuscular HGB Conc 33.4 g/dl (32-36); Mean Corpuscular Hemoglobin 31.8 pg (26-34); Mean Corpuscular Volume 95.1 fl (80-100); Mean Platelet Volume 9.3 fl (7.4-10.4); Platelet Count Result 209 k/mm3 (150-375); Prothrombin Time 12.4 Seconds (11.1-14.7); Red Blood Count 4.94 M/mm3 (4.6-6.20); Red Cell Distribution Width 13.4 % (11.5-14.5); White Blood Count 5.4 K/mm3 (4.5-10.0)
[2019-10-18 18:55] LABS: Partial Thromboplastin Time 43.5 SECONDS (22.3-36.8)
[2019-10-18 19:35] LABS: Base Excess ABG 2.7 mEq/l (+/-2.0); Carboxyhemoglobin 0.1 % THb (0-2.0); Fractional Inspired Oxygen 40 %; Methemoglobin ABG 0.4 %THb (0-1.5); Oxygen Content ABG 22.7 %vol (16.0-22.0); Oxygen Saturation ABG 98.8 % (95.0-100.0); Oxyhemoglobin 97.8 % THb (90.0-100.0); PCO2 ABG 32.3 mmHg (35.0-45.0); PO2 ABG 128.1 mmHg (80.0-100.0); Reduced Hemoglobin 1.7 %THb (0-5.0); Total Hemoglobin 16.4 g/dL (12.0-18.0); pH ABG 7.507 (7.350-7.450)
[2019-10-18 19:36] LABS: Site Drawn ARTLINE
[2019-10-18 19:37] LABS: Arterial Blood Gas PEEP 5 cmH2O; Arterial Blood Gas Tidal Volume 400 ml; Arterial Blood Gas Vent Mode CMV; Arterial Blood Gas Ventilator rate 18 /MIN; Device VENTILATOR
[2019-10-18] MEDS: POTASSIUM CHLORIDE 20 MEQ PACKET (FOR LIQUID) 40 MEQ PO (20:31)
[2019-10-18 21:08] LABS: Glucose Point of Care 103 (65-105)
[2019-10-18 21:08] LABS: Glucose Point of Care 97 (65-105)
[2019-10-18 21:09] LABS: Glucose Point of Care 88 (65-105)
[2019-10-18 22:20] LABS: Lactic Acid 0.7 mmol/L (0.7-2.1)
[2019-10-18 22:56] LABS: Alveolar/Arterial O2 Gradient 63.1 mmHg; Base Excess ABG -2.5 mEq/l (+/-2.0); Carboxyhemoglobin 0.3 % THb (0-2.0); Fractional Inspired Oxygen 30 %; HCO3 ABG 20.7 mEq/l (22.0-26.0); Methemoglobin ABG 0.4 %THb (0-1.5); Oxygen Content ABG 22.1 %vol (16.0-22.0); Oxygen Saturation ABG 98.3 % (95.0-100.0); Oxyhemoglobin 97.1 % THb (90.0-100.0); PCO2 ABG 32.1 mmHg (35.0-45.0); PO2 ABG 113.1 mmHg (80.0-100.0); PO2 FiO2 Ratio Arterial Blood 3.77 %; Reduced Hemoglobin 2.2 %THb (0-5.0); Total Hemoglobin 16.1 g/dL (12.0-18.0); pH ABG 7.428 (7.350-7.450)
[2019-10-18 22:57] LABS: Device VENTILATOR; Site Drawn ARTLINE
[2019-10-18 22:58] LABS: Arterial Blood Gas PEEP 5 cmH2O; Arterial Blood Gas Tidal Volume 350 ml; Arterial Blood Gas Vent Mode CMV; Arterial Blood Gas Ventilator rate 18 /MIN
[2019-10-18 23:01] LABS: Glucose Point of Care 71 (65-105)
[2019-10-18 23:01] LABS: Glucose Point of Care 77 (65-105)
[2019-10-18] MEDS: DEXTROSE 5%/0.9% SOD CHL 1,000 ML 75 ML IV CONT (23:36)
[2019-10-19] VITALS (66 sets, daily range): BP systolic 93–172; BP diastolic 60–95; PULSE 46–127; RESP 18; TEMP 32.4–37.3; O2SAT 96–100
[2019-10-19 00:36] LABS: Creatine Kinase 566 U/L (55-170)
--- NOTE | 2019-10-19 02:01 | PC.NURSE ---
0145 10/19/19 Blanketrol malfunction; temp probe and cord replaced.
[2019-10-19] MEDS: PANTOPRAZOLE SODIUM IV 40 MG VIAL IV PUSH ×3 (02:55→19:37)
[2019-10-19 03:07] LABS: Lactic Acid 0.6 mmol/L (0.7-2.1)
[2019-10-19 03:16] LABS: Glucose Point of Care 88 (65-105)
[2019-10-19 03:16] LABS: Glucose Point of Care 90 (65-105)
[2019-10-19 03:16] LABS: Glucose Point of Care 90 (65-105)
[2019-10-19 03:16] LABS: Glucose Point of Care 97 (65-105)
[2019-10-19 04:47] LABS: Basophils Percent Auto 0.8 % (0.2-1.2); Eosinophils Absolute Auto 0.1 K/mm3 (0-0.3); Eosinophils Percent Auto 1.4 % (0-4.4); Hematocrit 48.3 % (42.0-52.0); Hemoglobin 15.5 g/dL (14.0-18.0); Immature Granulocyte Absolute 0.02 K/mm3 (0.00-0.031); Immature Granulocyte Percent A 0.4 % (0-0.5); Lymphocytes Absolute Auto 0.47 K/mm3 (0.9-3.2); Lymphocytes Percent Auto 9.1 % (18.3-44.2); Mean Corpuscular HGB Conc 32.1 g/dl (32-36); Mean Corpuscular Volume 96.6 fl (80-100); Mean Platelet Volume 9.4 fl (7.4-10.4); Monocytes Absolute Auto 0.5 K/mm3 (0.1-0.6); Monocytes Percent Auto 8.9 % (2.6-8.5); Neutrophils Absolute Auto 4.1 K/mm3 (1.3-6.7); Neutrophils Percent Auto 79.4 % (45.5-73.1); Platelet Count Result 189 k/mm3 (150-375); Red Cell Distribution Width 13.6 % (11.5-14.5); White Blood Count 5.1 K/mm3 (4.5-10.0)
[2019-10-19 05:00] LABS: Alveolar/Arterial O2 Gradient 71.3 mmHg; Base Excess ABG 0.3 mEq/l (+/-2.0); HCO3 ABG 24.5 mEq/l (22.0-26.0); Oxygen Saturation ABG 97.6 % (95.0-100.0); PCO2 ABG 38.3 mmHg (35.0-45.0); PO2 ABG 97.6 mmHg (80.0-100.0); Total Hemoglobin 16.2 g/dL (12.0-18.0); pH ABG 7.423 (7.350-7.450)
[2019-10-19 05:01] LABS: Alanine Aminotransferase 216 U/L (4-50); Albumin Level 3.6 g/dL (3.5-5.1); Alkaline Phosphatase 101 U/L (38-126); Anion Gap 7 mmol/L (8-16); Aspartate Amino Transferase 124 U/L (17-59); Bilirubin,Total 0.8 mg/dL (0.2-1.3); Blood Urea Nitrogen 15 mg/dL (9-20); Calcium 8.3 mg/dL (8.4-10.2); Carbon Dioxide 28 mmol/L (22-30); Chloride 106 mmol/L (98-107); Creatine Kinase 585 U/L (55-170); Estimated CRCL calculation 137 ml/min; Estimated Glomerular Filt Rate > 60; Glucose 120 mg/dL (75-110); Magnesium 2.1 mg/dL (1.6-2.3); Phosphorus 2.8 mg/dL (2.5-4.5); Potassium 3.2 mmol/L (3.4-5.0); Sodium 141 mmol/L (137-145)
[2019-10-19 05:01] LABS: Carboxyhemoglobin 0.3 % THb (0-2.0); Device VENTILATOR; Fractional Inspired Oxygen 30 %; Methemoglobin ABG 0.3 %THb (0-1.5); Oxyhemoglobin 96.4 % THb (90.0-100.0); PO2 FiO2 Ratio Arterial Blood 3.25 %; Site Drawn ARTLINE
[2019-10-19 05:03] LABS: Arterial Blood Gas PEEP 5 cmH2O; Arterial Blood Gas Tidal Volume 350 ml; Arterial Blood Gas Vent Mode CMV; Arterial Blood Gas Ventilator rate 18 /MIN
[2019-10-19 05:28] LABS: INR 1.1; Prothrombin Time 13.6 Seconds (11.1-14.7)
[2019-10-19 05:29] LABS: Partial Thromboplastin Time 48.6 SECONDS (22.3-36.8)
[2019-10-19 06:54] LABS: Glucose Point of Care 102 (65-105)
[2019-10-19 06:54] LABS: Glucose Point of Care 100 (65-105)
[2019-10-19 06:54] LABS: Glucose Point of Care 106 (65-105)
--- NOTE | 2019-10-19 07:01 | PC.NURSE ---
rewarming started at 0700
--- NOTE | 2019-10-19 08:00 | ECHO_ITS ---
Patient Info Name: Héctor Funes Age: 64 years : 1955 Gender: Male Ht: 72 in Wt: 238 lbs BSA: 2.37 m2 HR: 70 bpm BP: 122 / 71 mmHg Heart Rhythm: Sinus Rhythm Technical Quality: Good Exam Date: 10/19/2019 11:47 AM Exam Location: [facility] Patient Status: Inpatient Admit Date: 10/17/2019 Staff Ordering Physician: Naima You DO Supervisor Rod Placing: Otis Whaley RDCS Attending Provider: Naima You DO Referring Physician: Kenyatta URBINA; Exam Type: CA echo dop color flow w con Study Info Indications I49.01 - Ventricular fibrillation Complete two-dimensional, color flow and Doppler transthoracic echocardiogram is performed with contrast to opacify the left ventricle and to improve the deliniation of the left ventricle endocardial borders. Strain analysis performed. Contrast/Agitated Saline Contrast/Ag. Saline: Definity Amount: 3.00 ml Administered By: Tino Antoine RN Existing IV Access: Yes History/Risk Factors Vfib arrest at home; NSTEMI, HTN, EtOH. Summary 1. Left ventricular chamber dimension is normal. 2. Left ventricular systolic function is normal, estimated at 55-60%. 3. There is mildly increased left ventricular wall thickness. 4. The left ventricular diastolic function is grade I diastolic dysfunction. 5. Global longitudinal strain is abnormal at -13 %. 6. There is mild mitral valve regurgitation. 7. There is mild tricuspid valve regurgitation. 8. The aortic root size at the sinus of Valsalva is mildly dilated. Left Ventricle Left ventricular chamber dimension is normal. Left ventricular systolic function is normal, estimated at 55-60%. There is mildly increased left ventricular wall thickness. The left ventricular diastolic function is grade I diastolic dysfunction. Global longitudinal strain is abnormal at -13 %. Right Ventricle Right ventricular chamber dimension is normal. Right ventricular systolic function is normal. Left Atria Left atrial chamber dimension is normal. Right Atria Right atrial chamber dimension is normal. Atrial Septum Intact interatrial septum visualized by color flow imaging. Aortic Valve The aortic valve is trileaflet. There is mild aortic valve sclerosis. There is no aortic valve stenosis. There is trace aortic valve regurgitation. Pulmonic Valve The pulmonic valve is normal. There is no pulmonic valve stenosis. There is trace pulmonic regurgitation. Mitral Valve The mitral valve has thickened leaflets. There is no mitral valve stenosis. There is mild mitral valve regurgitation. Tricuspid Valve The tricuspid valve leaflets are normal. There is no significant tricuspid valve stenosis. There is mild tricuspid valve regurgitation. Pericardium/Pleural The pericardium appears normal. There is no pericardial effusion. Inferior Vena Cava Normal inferior vena cava with <50% collapse upon inspiration consistent with normal right atrial pressure, 5 mmHg. Aorta The aortic root size at the sinus of Valsalva is mildly dilated. The prox ascending aorta size is normal. Left Ventricular Outflow Tract Name Value Normal LVOT 2D LVOT Diameter
[2019-10-19 08:21] LABS: Alveolar/Arterial O2 Gradient 51.9 mmHg; Base Excess ABG -1.8 mEq/l (+/-2.0); Carboxyhemoglobin 0.2 % THb (0-2.0); Fractional Inspired Oxygen 30 %; HCO3 ABG 22.6 mEq/l (22.0-26.0); Methemoglobin ABG 0.4 %THb (0-1.5); Oxygen Content ABG 22.4 %vol (16.0-22.0); Oxygen Saturation ABG 98.3 % (95.0-100.0); Oxyhemoglobin 97.1 % THb (90.0-100.0); PCO2 ABG 37.6 mmHg (35.0-45.0); PO2 ABG 117.8 mmHg (80.0-100.0); PO2 FiO2 Ratio Arterial Blood 3.93 %; Reduced Hemoglobin 2.3 %THb (0-5.0); Total Hemoglobin 16.3 g/dL (12.0-18.0); pH ABG 7.397 (7.350-7.450)
[2019-10-19 08:22] LABS: Arterial Blood Gas Vent Mode CMV; Arterial Blood Gas Ventilator rate 18 /MIN; Device VENTILATOR; Peak Inspiratory Pressure 0 cmH2O; Site Drawn ARTLINE
[2019-10-19 08:23] LABS: Arterial Blood Gas Minute Volume 0 LPM; Arterial Blood Gas PEEP 5 cmH2O; Arterial Blood Gas Pressure Support 0 cmH2O; Arterial Blood Gas Tidal Volume 350 ml
[2019-10-19 08:26] LABS: Glucose Point of Care 107 (65-105)
--- NOTE | 2019-10-19 09:00 | WPDINTPN ---
Progress Note: A&P Assessment and Plan (1) Acute respiratory failure: Code(s): J96.00 - Acute respiratory failure, unspecified whether with hypoxia or hypercapnia Status: Acute Assessment and Plan: Acute Respiratory failure secondary to V fib cardiac arrest intubated and now on mechanical ventilation Continue full mechanical ventilation support to prevent hypoxemia/hypercarbia and end organ damage. ABG and PCXR reviewed and will repeat in am decrease tidal volume to 350 and respiratory rate to 18 in response to alkalosis on ABG last night Low tidal volume ventilation strategy to prevent volutrauma hold Lasix at this time (2) Cardiac arrest with successful resuscitation: Code(s): I46.9 - Cardiac arrest, cause unspecified Status: Acute Assessment and Plan: Likely primary cardiac arrest due to ventricular fibrillation check cardiac echocardiogram cardiology consulted patient was started on amiodarone infusion which had to be stopped this morning due to extreme sinus bradycardia (3) Ventricular fibrillation: Code(s): I49.01 - Ventricular fibrillation Status: Acute Assessment and Plan: no major electrolyte abnormality to explain may have coronary artery disease cardiology consult and echocardiogram (4) Sinus bradycardia: Code(s): R00.1 - Bradycardia, unspecified Status: Acute Assessment and Plan: extreme sinus bradycardia once patient was on hypothermia protocol with rate dropping to 30s amiodarone was discontinued propofol had to be changed to Versed infusion atropine 1 mg IV given yesterday since then rate has improved and now as patient has been rewarming heart rate has improved to 60s continue to monitor (5) Hypertension: Qualifiers: Hypertension type: essential hypertension Qualified Code(s): I10 - Essential (primary) hypertension Code(s): I10 - Essential (primary) hypertension Status: Acute Assessment and Plan: arterial line was placed for closer blood pressure monitoring treat as needed with p.r.n. with hydralazine (6) Hyperlipidemia: Code(s): E78.5 - Hyperlipidemia, unspecified Status: Acute Assessment and Plan: simvastatin held due to elevated LFTs will resume once liver enzymes are close to normal (7) NSTEMI (non-ST elevated myocardial infarction): Code(s): I21.4 - Non-ST elevation (NSTEMI) myocardial infarction Status: Acute Assessment and Plan: small rise in troponin after presentation but has trended upwards EKG did not show any ST elevation. this could be secondary to his VFib arrest, CPR, epinephrine and defibrillation but since troponin level have increased and patient is unable to provide any history due to sedation and paralysis, patient wasl empirically started Lovenox and aspirin continue as per Cardiology hold beta-gerry and statin due to above-mentioned reasons patient seen by Cardiology and further evaluation depending on his neuro status (8) Anoxic brain injury: Code(s): G93.1 - Anoxic brain damage, not elsewhere classified Status: Acute Assessment and Plan: head CT negative on presentation patient was moving but not purposeful patient is on therapeutic hypothermia protocol and is now being reformed since 7:00 a.m. plan to discontinue paralytic and then sedation once patient is removed and assess neuro status (9) Hypokalemia: Code(s): E87.6 - Hypokalemia Status: Acute Assessment and Plan: low potassium was replaced yesterday. Likely from hypothermia and should resolve once patient is reformed will recheck BMP post rewarming (10) Hypoglycemia: Code(s): E16.2 - Hypoglycemia, unspecified Status: Acute Assessment and Plan: patient started on D5 normal saline overnight follow blood sugars. Will continue until enteral tube feeds are started
[2019-10-19 09:04] LABS: Glucose Point of Care 123 (65-105)
[2019-10-19] MEDS: ENOXAPARIN 120 MG/0.8 ML SYRINGE 110 MG SUB-Q ×2 (09:24→19:37)
[2019-10-19] MEDS: SIMVASTATIN 20 MG TABLET 40 MG FEED TUBE (09:26)
[2019-10-19] MEDS: ASPIRIN 325 MG TABLET PO (09:26)
[2019-10-19 09:41] LABS: Lactic Acid 0.7 mmol/L (0.7-2.1)
--- NOTE | 2019-10-19 10:05 | PM.PNCARD ---
Progress Note: A&P Assessment and Plan (1) NSTEMI (non-ST elevated myocardial infarction): Code(s): I21.4 - Non-ST elevation (NSTEMI) myocardial infarction Status: Acute Assessment and Plan: 1 uriel per kg enoxaparin q.12 hours. Aspirin 325 mg daily. potassium chloride 40 mEq IV potassium x1. Keep K greater than 4 and magnesium greater than 2 (2) Cardiac arrest with successful resuscitation: Code(s): I46.9 - Cardiac arrest, cause unspecified Status: Acute Assessment and Plan: undergoing cooling protocol. Likely some degree of anoxic injury. If /when meaningful recovery, will pursue angiogram (3) Hypertension: Qualifiers: Hypertension type: essential hypertension Qualified Code(s): I10 - Essential (primary) hypertension Code(s): I10 - Essential (primary) hypertension Status: Acute (4) Hyperlipidemia: Code(s): E78.5 - Hyperlipidemia, unspecified Status: Acute Assessment and Plan: simvastatin 40 mg p.o. daily to be started (5) Sinus bradycardia: Code(s): R00.1 - Bradycardia, unspecified Status: Acute Assessment and Plan: Hemodynamically stable Subjective Date/time seen: 10/19/19 10:05 Interval history: 64 year old male with a past medical history of hypertension, hyperlipidemia and chronic pain who presented to the ER from home after his witnessed him go unresponsive patient was found to be pulseless on EMS arrival to the home. Pt had VF arrest leaving him with some anoxic brain injury by his bedside Date of service 10/19/2019: Patient is still intubated sedated, on paralytics. Undergoing rewarming protocol Review of Systems Review of Systems: All systems reviewed & are unremarkable except as noted in HPI and below Constitutional: Constitutional: Denies body ache(s), Denies fatigue and Denies headache(s) Eyes: Eyes: Denies blurry vision ENT: Denies headache(s), Denies lip swelling and Denies epistaxis Cardiovascular: Cardiovascular: Denies chest pain and Denies dyspnea Respiratory: Respiratory: Denies dyspnea Gastrointestinal: Gastrointestinal: Denies abdominal pain Genitourinary: Genitourinary: Denies dysuria Musculoskeletal: Musculoskeletal: Denies myalgias Integumentary/Breasts: Skin/Breast: Denies dry skin and Denies unusual bruising Neurologic: Denies behavioral changes and Denies headache(s) Psychiatric: Psychiatric: Denies behavioral changes Endocrine: Endocrine: Denies fatigue Hematologic/Lymphatic: Hematologic/Lymphatic: Denies easy bleeding Allergic/Immunologic: Allergic/Immunologic: Denies lip swelling Exam Narrative: Exam Narrative: Currently intubated, sedated, paralyzed and now rewarming Const: General: comfortable HENMT: General nose exam: no epistaxis Eyes: Sclera: sclerae normal Neck: Neck: supple Chest: Other: no chest deformities are known or seen Resp: Auscultation: clear to auscultation bilaterally Cardio: Rate: regular rate Rhythm: regular rhythm Skin: General skin exam: normal color Neuro: Other: patient is currently paralyzed, intubated and sedated Extrem: General: no edema and no pedal edema Psych: Affect: normal affect Other: intubated and sedated Objective Data Vital Signs Vital Signs: Vital Signs - 24 hr 10/18/19 11:00 10/18/19 11:24 10/18/19 12:00 Temperature 33.3 C L 33.3 C L Pulse Rate 55 L 68 44 L Respiratory Rate 18 18 Blood Pressure 175/82 H 158/60 H Pulse Oximetry 100 100 100 10/18/19 13:00 10/18/19 14:00 10/18/19 14:57 Temperature 33.6 C L 34.2 C L Pulse Rate 56 L 49 L 47 L Respiratory Rate 18 18 Blood Pressure 124/67 160/76 H Pulse Oximetry 100 100 100 10/18/19 15:00 10/18/19 15:50 10/18/19 16:00 Temperature 32.9 C L 32.5 C L Pulse Rate 46 L 55 L 46 L Respiratory Rate 18 18 Blood Pressure 165/80 H 153/78 H Pulse Oximetry 100 100 100 10/18/19 16:56 10/18/19 16:57
[2019-10-19] MEDS: PERFLUTREN LIPID MICROSPHERES 1.5 ML VIAL DILUTED TO 10 ML TOTAL VOLUME IV PUSH (12:16)
[2019-10-19 12:27] LABS: Glucose Point of Care 105 (65-105)
[2019-10-19 12:27] LABS: Glucose Point of Care 121 (65-105)
[2019-10-19 12:27] LABS: Glucose Point of Care 121 (65-105)
--- NOTE | 2019-10-19 12:52 | PCDIET ---
ICU Rounding Note: Patient NPO undergoing rewarming. MD to possibly start tube feedings later today once rewarmed and stable. Recommendation for Vital 1.2 at goal of 65mL/hr (1716kcal, 107g protein over 22 hours/day) given to Brandie ALARCON. Last recorded weight is 113.1kg which is stable. Bowel Motility: No documented BM as of yet. Labs Reviewed: Glu (123), K (3.2), Alb (3.6), Ca (8.3) Meds Noted: Nimbex, Fentanyl, Protonix, Novolog Versed, D5NS at 75mL/hr Additional Notes: No open wounds documented. Recommend continued K+ replacement, as medically appropriate. Following daily in ICU rounds. Assessing/reassessing every Thursday/Thursday.
[2019-10-19] MEDS: DEXTROSE 5%/0.9% SOD CHL 1,000 ML 75 ML IV CONT (12:57)
[2019-10-19 14:14] LABS: Creatine Kinase 401 U/L (55-170)
[2019-10-19 15:02] LABS: Glucose Point of Care 100 (65-105)
[2019-10-19 15:02] LABS: Glucose Point of Care 104 (65-105)
[2019-10-19] MEDS: CENTRAL LINE FLUSH 10 ML IV PUSH ×2 (15:03→19:38)
[2019-10-19 15:25] LABS: Anion Gap 4 mmol/L (8-16); Blood Urea Nitrogen 14 mg/dL (9-20); Carbon Dioxide 27 mmol/L (22-30); Chloride 106 mmol/L (98-107); Estimated CRCL calculation 137 ml/min; Estimated Glomerular Filt Rate > 60; Glucose 109 mg/dL (75-110); Potassium 3.6 mmol/L (3.4-5.0); Sodium 137 mmol/L (137-145)
[2019-10-19] MEDS: PROPOFOL IV EMULSION 100 ML 19.4 MG IV CONT ×2 (16:58→22:04)
--- NOTE | 2019-10-19 17:04 | PM.IMPN ---
Progress Note: A&P Assessment and Plan (1) Cardiac arrest with successful resuscitation: Code(s): I46.9 - Cardiac arrest, cause unspecified Status: Acute Assessment and Plan: Likely primary cardiac arrest due to cardiac arrhythmia and/or MD. Pt is intubated Pt had VF arrest leaving him with some anoxic brain injury pt will have Anoxic brain testing tomorrow (2) Hypertension: Qualifiers: Hypertension type: essential hypertension Qualified Code(s): I10 - Essential (primary) hypertension Code(s): I10 - Essential (primary) hypertension Status: Acute Assessment and Plan: Continue to monitor blood pressures closely. Additional Plan Subjective Date/time seen: 10/19/19 17:04 Interval history: 64 year old male with a past medical history of hypertension, hyperlipidemia and chronic pain who presented to the ER from home after his witnessed him go unresponsive patient was found to be pulseless on EMS arrival to the home. Pt had VF arrest leaving him with some anoxic brain injury Pts temp is better today Awaiting brain scan tomorrow Review of Systems Review of Systems: ROS unobtainable: Yes unobtainable due to medical condition Exam Narrative: Exam Narrative: Pt is moving all 4 limbs vitals are better RRR chest is clear legs non edematous Objective Data Vital Signs Vital Signs: Vital Signs - 24 hr 10/18/19 17:14 10/18/19 18:00 10/18/19 19:00 Temperature 34.1 C L 33.2 C L Pulse Rate 60 57 L 43 L Respiratory Rate 18 18 Blood Pressure 151/70 H 165/85 H Pulse Oximetry 100 100 100 10/18/19 19:39 10/18/19 20:00 10/18/19 20:16 Temperature 32.2 C L Pulse Rate 44 L 42 L 40 L Respiratory Rate 18 Blood Pressure 177/97 H Pulse Oximetry 100 100 100 10/18/19 20:25 10/18/19 21:00 10/18/19 21:39 Temperature 32.2 C L 32.6 C L Pulse Rate 42 L 62 40 L Respiratory Rate 18 18 18 Blood Pressure 177/97 H 130/69 Pulse Oximetry 100 100 100 10/18/19 22:00 10/18/19 22:24 10/18/19 22:25 Temperature 34.1 C L Pulse Rate 59 L 59 L 58 L Respiratory Rate 18 18 18 Blood Pressure 138/74 136/73 Pulse Oximetry 100 10/18/19 22:27 10/18/19 22:29 10/18/19 22:50 Temperature Pulse Rate 58 L 58 L 56 L Respiratory Rate 18 18 Blood Pressure Pulse Oximetry 100 10/18/19 23:00 10/19/19 00:00 10/19/19 01:00 Temperature 34.1 C L 34.0 C L 33.2 C L Pulse Rate 57 L 60 58 L Respiratory Rate 18 18 18 Blood Pressure 133/72 137/74 131/70 Pulse Oximetry 100 100 100 10/19/19 02:00 10/19/19 02:14 10/19/19 02:15 Temperature 34.9 C L Pulse Rate 73 69 69 Respiratory Rate 18 18 18 Blood Pressure 139/74 Pulse Oximetry 100 10/19/19 02:58 10/19/19 03:00 10/19/19 03:03 Temperature 34.9 C L Pulse Rate 67 67 67 Respiratory Rate 18 18 Blood Pressure 153/78 H 153/78 H Pulse Oximetry 100 100 10/19/19 03:47 10/19/19 04:00 10/19/19 05:00 Temperature 34.0 C L 33.1 C L Pulse Rate 61 65 56 L Respiratory Rate 18 18 18 Blood Pressure 172/88 H 154/83 H Pulse Oximetry 100 100 10/19/19 05:24 10/19/19 05:25 10/19/19 06:00 Temperature 34.2 C L Pulse Rate 66 70 68 Respiratory Rate 18 18 18 Blood Pressure 148/80 H 153/80 H Pulse Oximetry 100 10/19/19 06:14 10/19/19 06:15 10/19/19 06:51 Temperature Pulse Rate 67 68 64 Respiratory Rate 18 18 18 Blood Pressure 159/88 H Pulse Oximetry 10/19/19 06:54 10/19/19 07:26 10/19/19 08:00 Temperature 34.6 C L 34.5 C L Pulse Rate 66 63 67 Respiratory Rate 18 18 18 Blood Pressure 163/86 H 161/93 H Pulse Oximetry 100 100 10/19/19 08:04 10/19/19 08:07 10/19/19 08:59 Temperature Pulse Rate 67 63 67 Respiratory Rate 18 18 Blood Pressure 161/93 H Pulse Oximetry 100 10/19/19 09:00 10/19/19 09:07 10/19/19 09:11 Temperature 33.5 C L Pulse Rate 54 L 63 56 L Respiratory Rate 18 18 18 Blood Pressure 165/89 H 164/91 H Pulse Oxi
[2019-10-19 17:59] LABS: Glucose Point of Care 97 (65-105)
[2019-10-19 17:59] LABS: Glucose Point of Care 104 (65-105)
[2019-10-19 19:03] LABS: Creatine Kinase 320 U/L (55-170)
[2019-10-19 23:00] LABS: Glucose Point of Care 72 (65-105)
[2019-10-19 23:41] LABS: Alveolar/Arterial O2 Gradient 82.5 mmHg; Base Excess ABG 0.6 mEq/l (+/-2.0); Carboxyhemoglobin 0.3 % THb (0-2.0); Fractional Inspired Oxygen 30 %; HCO3 ABG 25.6 mEq/l (22.0-26.0); Methemoglobin ABG 0.5 %THb (0-1.5); Oxygen Content ABG 20.7 %vol (16.0-22.0); Oxyhemoglobin 94.8 % THb (90.0-100.0); PCO2 ABG 42.3 mmHg (35.0-45.0); PO2 ABG 81.7 mmHg (80.0-100.0); PO2 FiO2 Ratio Arterial Blood 2.72 %; Reduced Hemoglobin 4.4 %THb (0-5.0); Total Hemoglobin 15.5 g/dL (12.0-18.0)
[2019-10-19 23:42] LABS: Arterial Blood Gas Vent Mode CMV; Arterial Blood Gas Ventilator rate 18 /MIN; Device VENTILATOR; Site Drawn ARTLINE
[2019-10-19 23:43] LABS: Arterial Blood Gas PEEP 5 cmH2O; Arterial Blood Gas Tidal Volume 350 ml
[2019-10-20] VITALS (25 sets, daily range): BP systolic 111–168; BP diastolic 68–89; PULSE 94–122; RESP 15–26; TEMP 37.4–38.6; O2SAT 89–100
[2019-10-20] MEDS: DEXTROSE 5%/0.9% SOD CHL 1,000 ML 75 ML IV CONT (00:59)
[2019-10-20] MEDS: PROPOFOL IV EMULSION 100 ML 13 MG IV CONT (03:41)
[2019-10-20 04:26] LABS: Alveolar/Arterial O2 Gradient 83.7 mmHg; Base Excess ABG -2.6 mEq/l (+/-2.0); Carboxyhemoglobin 0.1 % THb (0-2.0); Fractional Inspired Oxygen 30 %; HCO3 ABG 22.5 mEq/l (22.0-26.0); Methemoglobin ABG 0.4 %THb (0-1.5); Oxygen Content ABG 19.3 %vol (16.0-22.0); Oxygen Saturation ABG 95.9 % (95.0-100.0); Oxyhemoglobin 95.1 % THb (90.0-100.0); PCO2 ABG 40.3 mmHg (35.0-45.0); PO2 ABG 82.9 mmHg (80.0-100.0); PO2 FiO2 Ratio Arterial Blood 2.76 %; Reduced Hemoglobin 4.4 %THb (0-5.0); Total Hemoglobin 14.4 g/dL (12.0-18.0); pH ABG 7.365 (7.350-7.450)
[2019-10-20 04:27] LABS: Arterial Blood Gas Vent Mode CMV; Arterial Blood Gas Ventilator rate 18 /MIN; Device VENTILATOR; Modified Allen's Test Pass; Site Drawn RIGHT RADIAL
[2019-10-20 04:28] LABS: Arterial Blood Gas PEEP 5 cmH2O; Arterial Blood Gas Pressure Support 0 cmH2O; Arterial Blood Gas Tidal Volume 350 ml
[2019-10-20] MEDS: DEXTROSE 50% 25 GM/50 ML SYRINGE IV PUSH (05:09)
[2019-10-20] MEDS: CENTRAL LINE FLUSH 10 ML IV PUSH ×3 (05:10→21:07)
[2019-10-20 05:18] LABS: Glucose Point of Care 69 (65-105)
[2019-10-20 05:26] LABS: Hematocrit 43.5 % (42.0-52.0); Hemoglobin 13.8 g/dL (14.0-18.0); Mean Corpuscular HGB Conc 31.7 g/dl (32-36); Mean Corpuscular Hemoglobin 31.4 pg (26-34); Mean Corpuscular Volume 99.1 fl (80-100); Mean Platelet Volume 9.6 fl (7.4-10.4); Platelet Count Result 207 k/mm3 (150-375); Red Blood Count 4.39 M/mm3 (4.6-6.20); Red Cell Distribution Width 13.8 % (11.5-14.5); White Blood Count 6.2 K/mm3 (4.5-10.0)
[2019-10-20 05:34] LABS: Alanine Aminotransferase 118 U/L (4-50); Albumin Level 3.2 g/dL (3.5-5.1); Alkaline Phosphatase 77 U/L (38-126); Anion Gap 5 mmol/L (8-16); Aspartate Amino Transferase 56 U/L (17-59); Bilirubin,Total 0.2 mg/dL (0.2-1.3); Blood Urea Nitrogen 17 mg/dL (9-20); Calcium 7.8 mg/dL (8.4-10.2); Carbon Dioxide 26 mmol/L (22-30); Chloride 107 mmol/L (98-107); Estimated CRCL calculation 94 ml/min; Estimated Glomerular Filt Rate > 60; Glucose 132 mg/dL (75-110); Magnesium 1.7 mg/dL (1.6-2.3); Phosphorus 3.9 mg/dL (2.5-4.5); Potassium 3.8 mmol/L (3.4-5.0); Sodium 138 mmol/L (137-145)
[2019-10-20 05:42] LABS: Glucose Point of Care 132 (65-105)
[2019-10-20] MEDS: ALBUTEROL SULFATE NEB 2.5 MG/0.5 ML INH INHALATION (08:14)
[2019-10-20] MEDS: IPRATROPIUM BR 0.02% INH SOLN 0.5 MG/2.5 ML VIAL INHALATION (08:14)
[2019-10-20] MEDS: POTASSIUM CHLORIDE 20 MEQ PACKET (FOR LIQUID) PO (08:58)
[2019-10-20] MEDS: ENOXAPARIN 120 MG/0.8 ML SYRINGE 110 MG SUB-Q ×2 (08:58→21:05)
[2019-10-20] MEDS: ASPIRIN 325 MG TABLET PO (08:58)
[2019-10-20] MEDS: PANTOPRAZOLE SODIUM IV 40 MG VIAL IV PUSH ×2 (08:59→21:05)
[2019-10-20] MEDS: methylPREDNISolone SOD SUCC 125 MG VIAL 60 MG IV PUSH (08:59)
[2019-10-20] MEDS: SIMVASTATIN 20 MG TABLET 40 MG FEED TUBE (09:00)
[2019-10-20] MEDS: ACETAMINOPHEN 325 MG TABLET 650 MG PO (09:01)
--- NOTE | 2019-10-20 09:38 | P.CDI_ITS ---
CDI Query Clarification Request 1)- Acute respiratory failure documented by shallot cleaner - Pt on mechanical ventilator s/p cardiopulmonary arrest - Acute respiratory failure not on hospitalist problem list or mentioned in progress notes. Please clarify if acute respiratory failure was ruled in or ruled out. 2)-NSTEMI documented by shallot cleaner and cardiology - NSTEMI not on hospitalist problem list or mentioned in progress notes. Please clarify if NSTEMI has been ruled in or ruled out. <Tabitha Conroy RN - Last Filed: 10/20/19 09:48> Respiratory failure ruled in NSTEMI ruled in <Sommer Miller MD - Last Filed: 10/21/19 16:05> Provider Comments CHECK WITH ICU MD <Sommer Miller MD - Last Filed: 10/21/19 16:05>
--- NOTE | 2019-10-20 10:08 | PM.PNCARD ---
Progress Note: A&P Assessment and Plan (1) NSTEMI (non-ST elevated myocardial infarction): Code(s): I21.4 - Non-ST elevation (NSTEMI) myocardial infarction Status: Acute Assessment and Plan: 1 uriel per kg enoxaparin q.12 hours. Aspirin 325 mg daily. Keep K greater than 4 and magnesium greater than 2 echocardiogram shows preserved ejection fraction without wall motion abnormalities (2) Cardiac arrest with successful resuscitation: Code(s): I46.9 - Cardiac arrest, cause unspecified Status: Acute Assessment and Plan: Likely some degree of anoxic injury. If /when meaningful recovery, will pursue angiogram (3) Hypertension: Qualifiers: Hypertension type: essential hypertension Qualified Code(s): I10 - Essential (primary) hypertension Code(s): I10 - Essential (primary) hypertension Status: Acute (4) Hyperlipidemia: Code(s): E78.5 - Hyperlipidemia, unspecified Status: Acute Assessment and Plan: simvastatin 40 mg p.o. daily to be started (5) Sinus bradycardia: Code(s): R00.1 - Bradycardia, unspecified Status: Acute Assessment and Plan: Hemodynamically stable Subjective Date/time seen: 10/20/19 10:08 Interval history: 64 year old male with a past medical history of hypertension, hyperlipidemia and chronic pain who presented to the ER from home after his witnessed him go unresponsive patient was found to be pulseless on EMS arrival to the home. Pt had VF arrest leaving him with some anoxic brain injury by his bedside Date of service 10/20/2019: Patient does move but minimally responsive to painful stimuli at this point. No purposeful movement. Rhythm has been stable Review of Systems Review of Systems: All systems reviewed & are unremarkable except as noted in HPI and below Constitutional: Constitutional: Denies body ache(s), Denies fatigue and Denies headache(s) Eyes: Eyes: Denies blurry vision ENT: Denies headache(s), Denies lip swelling and Denies epistaxis Cardiovascular: Cardiovascular: Denies chest pain and Denies dyspnea Respiratory: Respiratory: Denies dyspnea Gastrointestinal: Gastrointestinal: Denies abdominal pain Genitourinary: Genitourinary: Denies dysuria Musculoskeletal: Musculoskeletal: Denies myalgias Integumentary/Breasts: Skin/Breast: Denies dry skin and Denies unusual bruising Neurologic: Denies behavioral changes and Denies headache(s) Psychiatric: Psychiatric: Denies behavioral changes Endocrine: Endocrine: Denies fatigue Hematologic/Lymphatic: Hematologic/Lymphatic: Denies easy bleeding Allergic/Immunologic: Allergic/Immunologic: Denies lip swelling Exam Narrative: Exam Narrative: no purposeful movement. Still on some propofol Const: General: comfortable HENMT: General nose exam: no epistaxis Eyes: Sclera: sclerae normal Neck: Neck: supple Chest: Other: no chest deformities are known or seen Resp: Auscultation: clear to auscultation bilaterally Cardio: Rate: regular rate Rhythm: regular rhythm Skin: General skin exam: normal color Neuro: Other: mildly sedated Extrem: General: no edema and no pedal edema Psych: Affect: normal affect Other: intubated and sedated Objective Data Vital Signs Vital Signs: Vital Signs - 24 hr 10/19/19 11:00 10/19/19 11:01 10/19/19 11:02 Temperature 33.1 C L Pulse Rate 70 67 67 Respiratory Rate 18 18 18 Blood Pressure 106/62 Pulse Oximetry 100 10/19/19 11:03 10/19/19 11:25 10/19/19 11:58 Temperature Pulse Rate 67 73 71 Respiratory Rate 18 18 Blood Pressure 149/88 H Pulse Oximetry 100 10/19/19 11:59 10/19/19 12:00 10/19/19 12:39 Temperature 35.3 C L Pulse Rate 71 72 66 Respiratory Rate 18 18 18 Blood Pressure 149/82 H Pulse Oximetry 100 10/19/19 12:51 10/19/19 12:53 10/19/19 13:00 Temperature 34.9 C L Pulse Rate 66 68 63 Respiratory Rate 18 18
--- NOTE | 2019-10-20 10:30 | WPDINTPN ---
Progress Note: A&P Assessment and Plan (1) Acute respiratory failure: Code(s): J96.00 - Acute respiratory failure, unspecified whether with hypoxia or hypercapnia Status: Acute Assessment and Plan: Acute Respiratory failure secondary to V fib cardiac arrest intubated and now on mechanical ventilation Continue full mechanical ventilation support to prevent hypoxemia/hypercarbia and end organ damage. ABG and PCXR reviewed and will repeat in am decrease tidal volume to 350 and respiratory rate to 18 in response to alkalosis on ABG last night Low tidal volume ventilation strategy to prevent volutrauma (2) Cardiac arrest with successful resuscitation: Code(s): I46.9 - Cardiac arrest, cause unspecified Status: Acute Assessment and Plan: Likely primary cardiac arrest due to ventricular fibrillation (3) Ventricular fibrillation: Code(s): I49.01 - Ventricular fibrillation Status: Acute Assessment and Plan: no major electrolyte abnormality to explain may have coronary artery disease cardiology consult and echocardiogram (4) Sinus bradycardia: Code(s): R00.1 - Bradycardia, unspecified Status: Acute Assessment and Plan: extreme sinus bradycardia once patient was on hypothermia protocol with rate dropping to 30s amiodarone was discontinued propofol had to be changed to Versed infusion atropine 1 mg IV was given now resolved after rewarming continue to monitor (5) Hypertension: Qualifiers: Hypertension type: essential hypertension Qualified Code(s): I10 - Essential (primary) hypertension Code(s): I10 - Essential (primary) hypertension Status: Acute Assessment and Plan: arterial line was placed for closer blood pressure monitoring treat as needed with p.r.n. with hydralazine (6) Hyperlipidemia: Code(s): E78.5 - Hyperlipidemia, unspecified Status: Acute Assessment and Plan: simvastatin held due to elevated LFTs will resume now (7) NSTEMI (non-ST elevated myocardial infarction): Code(s): I21.4 - Non-ST elevation (NSTEMI) myocardial infarction Status: Acute Assessment and Plan: small rise in troponin after presentation but has trended upwards EKG did not show any ST elevation. this could be secondary to his VFib arrest, CPR, epinephrine and defibrillation but since troponin level have increased and patient is unable to provide any history due to sedation and paralysis, patient wasl empirically started Lovenox and aspirin continue as per Cardiology start low-dose beta-gerry and statin due to above-mentioned reasons patient seen by Cardiology and further evaluation depending on his neuro status (8) Anoxic brain injury: Code(s): G93.1 - Anoxic brain damage, not elsewhere classified Status: Acute Assessment and Plan: head CT negative on presentation patient was moving but not purposeful patient has completed therapeutic hypothermia protocol on holding sedation he does withdraw to pain and tries to open his eyes on commands some of this may be complemented by sedation I have discontinued Versed and fentanyl and currently propofol is on hold will continue sedation holiday for now and use only short-acting propofol if needed to allow further neurological assessment consult neurology will hold on EEG or other brain imaging at this time (9) Hypokalemia: Code(s): E87.6 - Hypokalemia Status: Acute Assessment and Plan: low potassium was replaced yesterday. Likely from hypothermia and should resolve once patient is reformed will recheck BMP post rewarming (10) Hypoglycemia: Code(s): E16.2 - Hypoglycemia, unspecified Status: Acute Assessment and Plan: patient started on D5 normal saline for blood sugars. now on tube feeding will try to wean off dextrose (11) Wheezing:
--- NOTE | 2019-10-20 11:07 | PCDIET ---
ICU Rounding Note: Patient tolerating Vital 1.2 at 65mL/hr goal rate without reported issues. MD may decrease IV fluids slightly but needs some D5 to maintain glucose levels. Tube feeding with Propofol providing roughly 2000kcal, 107g protein per day with additional ~300kcal from IV dextrose. Last recorded weight is 113.1kg which is stable. Bowel Motility: No documented BM as of yet. Labs Reviewed: Hgb (13.8), Glu (132), Alb (3.2) Meds Noted: Albuterol, Fentanyl, Novolog, KCl, Solu Medrol, Protonix, D5NS at 75mL/hr, Atrovent, Versed, Propofol (rate of 9.7mL/hr provides 256kcal over 24 hour period) Additional Notes: No skin breakdown documented. Following daily in ICU rounds. Assessing/reassessing every Thursday/Thursday.
[2019-10-20] MEDS: FUROSEMIDE INJ 40 MG/4 ML VIAL IV PUSH (12:31)
[2019-10-20 12:47] LABS: Glucose Point of Care 160 (65-105)
[2019-10-20 13:24] LABS: Add Urine Microscopic? NO; Appearance Urine Clear (Clear); Bilirubin Urine Negative (Negative); Blood Urine Negative (Negative); Color Urine Colorless (Yellow); Glucose Urine UA Negative (Negative); Ketones Urine Negative (Negative); Leukocyte Esterase Ur Negative LEU/UL (Negative); Nitrate Urine Negative (Negative); Protein Urine Negative (Negative); Specific Grav Ur 1.006 (1.001-1.035); Urobilinogen Urine Negative mg/dL (<2.0)
[2019-10-20] MEDS: carvediloL 3.125 MG TABLET PO ×2 (13:28→21:06)
[2019-10-20 13:29] LABS: Alveolar/Arterial O2 Gradient 131.4 mmHg; Base Excess ABG 1.1 mEq/l (+/-2.0); Fractional Inspired Oxygen 35 %; HCO3 ABG 24.9 mEq/l (22.0-26.0); Modified Allen's Test Pass; Oxygen Content ABG 21.2 %vol (16.0-22.0); Oxygen Saturation ABG 95.6 % (95.0-100.0); Oxyhemoglobin 95.3 % THb (90.0-100.0); PCO2 ABG 37.2 mmHg (35.0-45.0); PO2 ABG 74.9 mmHg (80.0-100.0); PO2 FiO2 Ratio Arterial Blood 2.14 %; Site Drawn LEFT RADIAL; Total Hemoglobin 15.8 g/dL (12.0-18.0); pH ABG 7.444 (7.350-7.450)
[2019-10-20] MEDS: LOSARTAN POTASSIUM 100 MG TABLET PO (13:29)
[2019-10-20 13:30] LABS: Arterial Blood Gas PEEP 5 cmH2O; Arterial Blood Gas Vent Mode SPONTANEOUS; Device VENTILATOR
[2019-10-20 13:31] LABS: Arterial Blood Gas Pressure Support 5 cmH2O
--- NOTE | 2019-10-20 14:42 | PM.EVENT ---
Event Note Event Note Event Note: Patient on holding sedation for extended period time woke up and started following commands with all 4 extremities and nodded head appropriately to questions. 5/5 PSV SBT done for more than 1/2 hour. RSBI, ABGI and Vitals acceptable. Pt awake and following commands. Will extubate and monitor. NPO for now. Lasix 40 mg IV given earlier for fairly positive balance.
[2019-10-20 17:11] LABS: Glucose Point of Care 148 (65-105)
[2019-10-20] MEDS: DEXTROSE 5%/0.9% SOD CHL 1,000 ML 25 ML IV CONT (17:14)
[2019-10-20 23:43] LABS: Glucose Point of Care 117 (65-105)
[2019-10-20] MEDS: hydrALAZINE HCL 20 MG/ML VIAL 10 MG IV PUSH (23:52)
--- NOTE | 2019-10-20 23:58 | PC.NURSE ---
Hydralazine 10 mg given IVP for BP 183/99
[2019-10-21] VITALS (17 sets, daily range): BP systolic 126–175; BP diastolic 73–100; PULSE 82–106; RESP 16–22; TEMP 36.1–37.5; O2SAT 91–100
[2019-10-21] MEDS: CENTRAL LINE FLUSH 10 ML IV PUSH (05:32)
[2019-10-21 05:38] LABS: Mean Corpuscular HGB Conc 32.5 g/dl (32-36); Mean Corpuscular Hemoglobin 31.7 pg (26-34); Mean Corpuscular Volume 97.6 fl (80-100); Mean Platelet Volume 9.7 fl (7.4-10.4); Platelet Count Result 210 k/mm3 (150-375); Red Cell Distribution Width 13.4 % (11.5-14.5); White Blood Count 8.9 K/mm3 (4.5-10.0)
[2019-10-21 05:53] LABS: Alanine Aminotransferase 89 U/L (4-50); Albumin Level 3.3 g/dL (3.5-5.1); Alkaline Phosphatase 81 U/L (38-126); Anion Gap 4 mmol/L (8-16); Aspartate Amino Transferase 48 U/L (17-59); Bilirubin,Total 0.6 mg/dL (0.2-1.3); Blood Urea Nitrogen 16 mg/dL (9-20); Calcium 8.3 mg/dL (8.4-10.2); Carbon Dioxide 29 mmol/L (22-30); Chloride 108 mmol/L (98-107); Estimated CRCL calculation 105 ml/min; Estimated Glomerular Filt Rate > 60; Glucose 110 mg/dL (75-110); Magnesium 1.7 mg/dL (1.6-2.3); Potassium 3.4 mmol/L (3.4-5.0); Sodium 141 mmol/L (137-145)
[2019-10-21 08:03] LABS: Glucose Point of Care 110 (65-105)
[2019-10-21] MEDS: PANTOPRAZOLE SODIUM IV 40 MG VIAL IV PUSH ×2 (08:45→21:02)
[2019-10-21] MEDS: LOSARTAN POTASSIUM 100 MG TABLET PO (08:45)
[2019-10-21] MEDS: SIMVASTATIN 20 MG TABLET 40 MG FEED TUBE (08:46)
[2019-10-21] MEDS: MAGNESIUM SULF 2 GM/WATER 50ML 2 GM/50 ML BAG IVPB (08:47)
[2019-10-21] MEDS: POTASSIUM CHLORIDE 20 MEQ TABLET 40 MEQ PO (08:47)
--- NOTE | 2019-10-21 09:18 | PCOTNOTE ---
Hold OT evaluation this AM. Patient with femoral line places. Plan is to remove line this AM and transfer patient to IMU. Will attempt OT evaluation at later time and when medically appropriate.
[2019-10-21] MEDS: ASPIRIN 325 MG TABLET PO (09:44)
[2019-10-21] MEDS: ENOXAPARIN 120 MG/0.8 ML SYRINGE 110 MG SUB-Q ×2 (09:45→21:00)
--- NOTE | 2019-10-21 09:45 | WPDINTPN ---
Progress Note: A&P Assessment and Plan (1) Acute respiratory failure: Code(s): J96.00 - Acute respiratory failure, unspecified whether with hypoxia or hypercapnia Status: Acute Assessment and Plan: Acute Respiratory failure secondary to V fib cardiac arrest patient was extubated yesterday after successful weaning trial. Now saturating well on nasal cannula. Incentive spirometry and out of bed today chest x-ray reviewed and does not show any pulmonary edema (2) Cardiac arrest with successful resuscitation: Code(s): I46.9 - Cardiac arrest, cause unspecified Status: Acute Assessment and Plan: Likely primary cardiac arrest due to ventricular fibrillation (3) Ventricular fibrillation: Code(s): I49.01 - Ventricular fibrillation Status: Acute Assessment and Plan: no major electrolyte abnormality to explain may have coronary artery disease cardiology consult echocardiogram reviewed (4) Sinus bradycardia: Code(s): R00.1 - Bradycardia, unspecified Status: Acute Assessment and Plan: extreme sinus bradycardia once patient was on hypothermia protocol with rate dropping to 30s amiodarone was discontinued propofol had to be changed to Versed infusion atropine 1 mg IV was given now now tachycardic and hence beta-gerry started for hypertension continue to monitor (5) Hypertension: Qualifiers: Hypertension type: essential hypertension Qualified Code(s): I10 - Essential (primary) hypertension Code(s): I10 - Essential (primary) hypertension Status: Acute Assessment and Plan: increased Coreg does continue losartan resume HCTZ p.r.n. Lopressor (6) Hyperlipidemia: Code(s): E78.5 - Hyperlipidemia, unspecified Status: Acute Assessment and Plan: simvastatin held due to elevated LFTs now resume since LFTs have improved (7) NSTEMI (non-ST elevated myocardial infarction): Code(s): I21.4 - Non-ST elevation (NSTEMI) myocardial infarction Status: Acute Assessment and Plan: small rise in troponin after presentation but has trended upwards EKG did not show any ST elevation. this could be secondary to his VFib arrest, CPR, epinephrine and defibrillation but since troponin level have increased and patient is unable to provide any history due to sedation and paralysis, patient wasl empirically started Lovenox and aspirin continue as per Cardiology start low-dose beta-gerry and statin due to above-mentioned reasons patient seen by Cardiology (8) Anoxic brain injury: Code(s): G93.1 - Anoxic brain damage, not elsewhere classified Status: Acute Assessment and Plan: head CT negative on presentation patient was moving but not purposeful patient has completed therapeutic hypothermia protocol with holding sedation patient's mental status gradually improved any started following commands he still appears little confused and slow in remembering thing. I am not sure what his baseline. This may still be some lingering effect of medication versus very mild anoxic injury. . Continue to hold sedatives and monitor (9) Hypokalemia: Code(s): E87.6 - Hypokalemia Status: Acute Assessment and Plan: improved after rewarming and supplementation will give additional 40 mEq today (10) Hypoglycemia: Code(s): E16.2 - Hypoglycemia, unspecified Status: Acute Assessment and Plan: patient started on D5 normal saline for blood sugars. swallow eval today and advance diet (11) Wheezing: Code(s): R06.2 - Wheezing Status: Acute Assessment and Plan: patient wheezing on yesterday's exam on the ventilator. patient was started on bronchodilators and steroids He does not have diagnose COPD and patient told me that he only smoked for for 5 years and that was 30 years ago so unlikely t
[2019-10-21] MEDS: hydroCHLOROthiazide 12.5 MG CAPSULE PO (09:46)
[2019-10-21] MEDS: carvediloL 6.25 MG TABLET PO (09:47)
--- NOTE | 2019-10-21 12:00 | PC.NURSE ---
This patient, Héctor Funes, was received from [ICU-8] on 10/21/19 at 1200. REPORT RECEIVED FROM KIRAN ALARCON. Personal belongings list checked and signed. Patient/family oriented to unit policies and routines
--- NOTE | 2019-10-21 12:10 | PM.PNCARD ---
Progress Note: A&P Assessment and Plan (1) NSTEMI (non-ST elevated myocardial infarction): Code(s): I21.4 - Non-ST elevation (NSTEMI) myocardial infarction Status: Acute Assessment and Plan: 1 uriel per kg enoxaparin q.12 hours. Aspirin 325 mg daily. Keep K greater than 4 and magnesium greater than 2 echocardiogram shows preserved ejection fraction without wall motion abnormalities Consent for cardiac catheterization. Catheterization to be performed either later today or on Thursday. (2) Cardiac arrest with successful resuscitation: Code(s): I46.9 - Cardiac arrest, cause unspecified Status: Acute Assessment and Plan: confused yet but with significant recovery. Proceed with coronary angiogram and if no ischemic evidence of disease is seen, patient will need a defibrillator before discharge. Plan for cardiac catheterization when able. Hold Lovenox at least 12 hours prior to coronary angiogram. Keep potassium greater than 4 and magnesium greater than 2. Will replace with 40 mEq p.o. potassium x1 as well as 2 g of IV magnesium today. (3) Hypertension: Qualifiers: Hypertension type: essential hypertension Qualified Code(s): I10 - Essential (primary) hypertension Code(s): I10 - Essential (primary) hypertension Status: Acute Assessment and Plan: Increase carvedilol up to 12.5 mg p.o. b.i.d. (4) Hyperlipidemia: Code(s): E78.5 - Hyperlipidemia, unspecified Status: Acute Assessment and Plan: continue statin (5) Sinus bradycardia: Code(s): R00.1 - Bradycardia, unspecified Status: Acute Assessment and Plan: stable Subjective Date/time seen: 10/21/19 12:10 Interval history: 64 year old male with a past medical history of hypertension, hyperlipidemia and chronic pain who presented to the ER from home after his witnessed him go unresponsive patient was found to be pulseless on EMS arrival to the home. Pt had VF arrest leaving him with some anoxic brain injury by his bedside Date of service 10/21/2019: good progress over the past 24 hours. He was extubated. He is still confused but is conversant. Able answer questions. No chest pain or shortness of breath. Review of Systems Review of Systems: All systems reviewed & are unremarkable except as noted in HPI and below Constitutional: Constitutional: Denies body ache(s), Denies fatigue and Denies headache(s) Eyes: Eyes: Denies blurry vision ENT: Denies headache(s), Denies lip swelling and Denies epistaxis Cardiovascular: Cardiovascular: Denies chest pain and Denies dyspnea Respiratory: Respiratory: Denies dyspnea Gastrointestinal: Gastrointestinal: Denies abdominal pain Genitourinary: Genitourinary: Denies dysuria Musculoskeletal: Musculoskeletal: Denies myalgias Integumentary/Breasts: Skin/Breast: Denies dry skin and Denies unusual bruising Neurologic: Denies behavioral changes and Denies headache(s) Psychiatric: Psychiatric: Denies behavioral changes Endocrine: Endocrine: Denies fatigue Hematologic/Lymphatic: Hematologic/Lymphatic: Denies easy bleeding Allergic/Immunologic: Allergic/Immunologic: Denies lip swelling Exam Narrative: Exam Narrative: Extubated and answering questions Const: General: comfortable HENMT: General nose exam: no epistaxis Eyes: Sclera: sclerae normal Neck: Neck: supple Chest: Other: no chest deformities are known or seen Resp: Auscultation: clear to auscultation bilaterally Cardio: Rate: regular rate Rhythm: regular rhythm Skin: General skin exam: normal color Neuro: General: oriented to person Extrem: General: no edema and no pedal edema Psych: Affect: normal affect Objective Data Vital Signs Vital Signs: Vital Signs - 24 hr 10/20/19 12:14 10/20/19 13:28 10/20/19 13:56 Temperature Pulse Rate 114 H 122 H Respiratory Rate Blood Pressure Pulse Oximetry 92
--- NOTE | 2019-10-21 12:38 | PCDIET ---
Nutrition Follow-Up Complete: Nutrition Diagnosis: Inadequate oral intake related to oral intubation as evidenced by NPO diet. Nutrition Goal: Patient to meet estimated nutritional needs. Goal in progress. Patient extubated on 10/20/19 and diet has just advanced to heart healthy, level 6 after BUSINESS OPERATIONS ANALYST evaluation. Will monitor intakes closely and provide additional recommendations, as needed. Last recorded weight is 111.9 kg which is down from last review. +I/O. Bowel Motility: No documented BM as of yet. Labs Reviewed: Hgb (13.0), Hct (40.0), Alb (3.3), Tawanna Ca WNL Meds Noted: Albuterol, D5NS at 25mL/hr, Hydrochlorothiazide, Novolog, Atrovent, Protonix, Magnesium Sulfate, KCl Additional Notes: No documented skin breakdown. Will continue to monitor with same goal. Nutrition Monitoring and Evaluation: Follow up every 3 days.
[2019-10-21 13:16] LABS: Glucose Point of Care 119 (65-105)
--- NOTE | 2019-10-21 17:40 | PM.IMPN ---
Progress Note: A&P Assessment and Plan (1) Cardiac arrest with successful resuscitation: Code(s): I46.9 - Cardiac arrest, cause unspecified Status: Acute Assessment and Plan: Likely primary cardiac arrest due to cardiac arrhythmia and/or [place]. extubated rewarmed Pt had VF arrest leaving him with maybe anoxic brain injury (2) Hypertension: Qualifiers: Hypertension type: essential hypertension Qualified Code(s): I10 - Essential (primary) hypertension Code(s): I10 - Essential (primary) hypertension Status: Acute Assessment and Plan: Continue to monitor blood pressures closely. Additional Plan other issues slight weakness. cardiac cath some time. mild memory issues noticed . Subjective Date/time seen: 10/21/19 17:40 Interval history: 64 year old male with a past medical history of hypertension, hyperlipidemia and chronic pain who presented to the ER from home after his witnessed him go unresponsive patient was found to be pulseless on EMS arrival to the home. Pt temperature back nl, moving all his limbs and appears oriented. pt denies chest pain. slight weakness. cardiac cath some time. mild memory issues noticed. pt had a swallow study. ok to eat. Review of Systems Review of Systems: All systems reviewed & are unremarkable except as noted in HPI and below Exam Narrative: Exam Narrative: Pt is moving all 4 limbs vitals are better RRR chest is clear legs non edematous Objective Data Vital Signs Vital Signs: Vital Signs - 24 hr 10/20/19 18:00 10/20/19 20:00 10/20/19 21:06 Temperature 37.4 C 37.5 C Pulse Rate 100 94 96 Respiratory Rate 21 H 17 Blood Pressure 141/81 H 133/78 Pulse Oximetry 99 98 10/20/19 22:00 10/21/19 00:00 10/21/19 02:00 Temperature 37.5 C 37.1 C Pulse Rate 99 96 106 H Respiratory Rate 18 18 16 Blood Pressure 154/88 H 175/93 H 175/90 H Pulse Oximetry 100 98 96 10/21/19 04:00 10/21/19 06:00 10/21/19 08:00 Temperature 36.9 C 36.3 C L Pulse Rate 97 93 92 Respiratory Rate 18 22 H 16 Blood Pressure 158/79 H 157/83 H 175/100 H Pulse Oximetry 96 98 91 10/21/19 09:47 10/21/19 10:00 10/21/19 11:36 Temperature Pulse Rate 94 85 Respiratory Rate Blood Pressure Pulse Oximetry 94 10/21/19 12:00 10/21/19 13:00 10/21/19 14:00 Temperature 36.1 C L Pulse Rate 82 85 85 Respiratory Rate 16 Blood Pressure 126/74 Pulse Oximetry 97 10/21/19 16:00 Temperature 36.2 C L Pulse Rate 88 Respiratory Rate 20 Blood Pressure 131/75 Pulse Oximetry 97 Intake/Output Intake/Output: Intake & Output 10/18/19 10/19/19 10/20/19 10/21/19 23:59 23:59 23:59 23:59 Intake Total 1624 2889.5 3363.4 528.4 Output Total 2152 1444 2700 1200 Balance -528 1445.5 663.4 -671.6 Meds/Results Medications: Active Medications Generic Name Dose Route Start Last Admin Trade Name Freq PRN Reason Stop Dose Admin Acetaminophen 650 mg 10/20/19 07:54 10/20/19 09:01 Tylenol Tablet PO 650 mg Q4H PRN Administration Mild Pain (1-3) or Fever Albuterol 2.5 mg 10/20/19 07:42 10/20/19 08:14 Albuterol Sulf Neb 2.5mg/0.5ml INHALATION 2.5 mg Q6HRT PRN Administration Wheezing Aspirin 325 mg 10/18/19 08:00 10/21/19 09:44 Aspirin PO 325 mg DAILY@0800 BALA Administration Carvedilol 12.5 mg 10/21/19 21:00 Coreg PO Q12HR BALA Dextrose 12.5 gm 10/18/19 07:35 10/20/19 05:09 Dextrose 50% Syringe IV PUSH 12.5 gm PRN PRN Administration Hypoglycemia Protocol Enoxaparin Sodium 110 mg 10/18/19 09:00 10/21/19 09:45 Lovenox SUB-Q 110 mg Q12HR BALA Administration Glucagon 1 mg 10/18/19 07:35 Glucagon For Inj IM PRN PRN Hypoglycemia Protocol Glucose 15 gm 10/18/19 07:35 Glutose 15 PO PRN PRN Hypoglycemia Protocol Hydralazine HCl 10 mg 10/19/19 07:54 10/20/19 23:52 Apresoline Hcl Inj IV PUSH
[2019-10-21] MEDS: carvediloL 12.5 MG TABLET PO (20:58)
[2019-10-22] VITALS (15 sets, daily range): BP systolic 128–151; BP diastolic 66–95; PULSE 58–108; RESP 16–20; TEMP 35.8–37.3; O2SAT 97–100
[2019-10-22 05:23] LABS: Hematocrit 36.8 % (42.0-52.0); Hemoglobin 11.9 g/dL (14.0-18.0); Mean Corpuscular HGB Conc 32.3 g/dl (32-36); Mean Corpuscular Hemoglobin 31.5 pg (26-34); Mean Corpuscular Volume 97.4 fl (80-100); Mean Platelet Volume 9.8 fl (7.4-10.4); Platelet Count Result 220 k/mm3 (150-375); Red Blood Count 3.78 M/mm3 (4.6-6.20); Red Cell Distribution Width 13.3 % (11.5-14.5); White Blood Count 9.4 K/mm3 (4.5-10.0)
[2019-10-22 05:38] LABS: Alanine Aminotransferase 65 U/L (4-50); Albumin Level 3.4 g/dL (3.5-5.1); Alkaline Phosphatase 76 U/L (38-126); Anion Gap 6 mmol/L (8-16); Aspartate Amino Transferase 36 U/L (17-59); Bilirubin,Total 0.6 mg/dL (0.2-1.3); Blood Urea Nitrogen 18 mg/dL (9-20); Calcium 8.4 mg/dL (8.4-10.2); Carbon Dioxide 30 mmol/L (22-30); Chloride 105 mmol/L (98-107); Estimated CRCL calculation 105 ml/min; Estimated Glomerular Filt Rate > 60; Glucose 116 mg/dL (75-110); Phosphorus 3.4 mg/dL (2.5-4.5); Potassium 3.6 mmol/L (3.4-5.0); Sodium 141 mmol/L (137-145)
[2019-10-22] MEDS: carvediloL 12.5 MG TABLET PO ×2 (09:37→20:00)
[2019-10-22] MEDS: ASPIRIN 325 MG TABLET PO (09:37)
[2019-10-22] MEDS: LOSARTAN POTASSIUM 100 MG TABLET PO (09:37)
[2019-10-22] MEDS: PANTOPRAZOLE SODIUM IV 40 MG VIAL IV PUSH ×2 (09:38→20:00)
[2019-10-22] MEDS: ENOXAPARIN 120 MG/0.8 ML SYRINGE 110 MG SUB-Q ×2 (09:38→20:00)
[2019-10-22] MEDS: SIMVASTATIN 20 MG TABLET 40 MG FEED TUBE (09:38)
[2019-10-22] MEDS: hydroCHLOROthiazide 12.5 MG CAPSULE PO (09:38)
--- NOTE | 2019-10-22 11:47 | PM.PNCARD ---
Progress Note: A&P Additional Plan 64-year-old man who has made a remarkable neurological recovery following rescue from out of hospital ventricular fibrillation plans for workup with coronary angiogram on Thursday morning are in place. Following that will determine the need for/ timing for defibrillator implantation Subjective Date/time seen: date of service:10/22/19 11:47 Interval history: Follow-up visit in this 64-year-old man who presented with [id number] V ventricular fibrillation arrest. Patient has made a remarkable neurological recovery. Having some difficulty or clumsiness at least ambulating in the [place] with physical therapy. Is alert and responsive seems to have a rather strange affect. says this is his baseline. Exam Const: General: comfortable and no acute distress HENMT: Mouth: Yes moist mucous membranes Eyes: General: appearance normal, both eyes and all related structures Neck: Neck: supple and no JVD Thyroid: thyroid normal Resp: Effort & Inspection: normal respiratory effort Auscultation: clear to auscultation bilaterally Cardio: Rate: regular rate Rhythm: regular rhythm Other: No apparent murmur gallop or rub GI: Auscultation: normal bowel sounds Skin: General skin exam: normal color Neuro: Other: strange affect otherwise normal cognition Extrem: General: normal to inspection Objective Data Vital Signs Vital Signs: Vital Signs - 24 hr 10/21/19 12:00 10/21/19 13:00 10/21/19 14:00 Temperature 36.1 C L Pulse Rate 82 85 85 Respiratory Rate 16 Blood Pressure 126/74 Pulse Oximetry 97 10/21/19 16:00 10/21/19 18:00 10/21/19 19:37 Temperature 36.2 C L 36.1 C L Pulse Rate 89 89 97 Respiratory Rate 20 16 Blood Pressure 131/75 137/73 Pulse Oximetry 97 100 10/21/19 20:00 10/21/19 20:58 10/21/19 22:00 Temperature Pulse Rate 97 94 92 Respiratory Rate 16 Blood Pressure Pulse Oximetry 100 10/22/19 00:00 10/22/19 02:00 10/22/19 04:00 Temperature 36.2 C L 37.3 C Pulse Rate 82 97 89 Respiratory Rate 20 20 Blood Pressure 147/87 H 140/83 Pulse Oximetry 100 98 10/22/19 05:18 10/22/19 08:00 10/22/19 09:37 Temperature 35.8 C L Pulse Rate 95 100 108 H Respiratory Rate 16 Blood Pressure 151/83 H Pulse Oximetry 99 Intake/Output Intake/Output: Intake & Output 10/19/19 10/20/19 10/21/19 10/22/19 23:59 23:59 23:59 23:59 Intake Total 2889.5 3363.4 926.4 100 Output Total 1444 2700 1475 630 Balance 1445.5 663.4 -548.6 -530 Meds/Results Medications: Active Medications Generic Name Dose Route Start Last Admin Trade Name Freq PRN Reason Stop Dose Admin Acetaminophen 650 mg 10/20/19 07:54 10/20/19 09:01 Tylenol Tablet PO 650 mg Q4H PRN Administration Mild Pain (1-3) or Fever Albuterol 2.5 mg 10/20/19 07:42 10/20/19 08:14 Albuterol Sulf Neb 2.5mg/0.5ml INHALATION 2.5 mg Q6HRT PRN Administration Wheezing Aspirin 325 mg 10/18/19 08:00 10/22/19 09:37 Aspirin PO 325 mg DAILY@0800 BALA Administration Carvedilol 12.5 mg 10/21/19 21:00 10/22/19 09:37 Coreg PO 12.5 mg Q12HR BALA Administration Dextrose 12.5 gm 10/18/19 07:35 10/20/19 05:09 Dextrose 50% Syringe IV PUSH 12.5 gm PRN PRN Administration Hypoglycemia Protocol Enoxaparin Sodium 110 mg 10/18/19 09:00 10/22/19 09:38 Lovenox SUB-Q 110 mg Q12HR BALA Administration Glucagon 1 mg 10/18/19 07:35 Glucagon For Inj IM PRN PRN Hypoglycemia Protocol Glucose 15 gm 10/18/19 07:35 Glutose 15 PO PRN PRN Hypoglycemia Protocol Hydralazine HCl 10 mg 10/19/19 07:54 10/20/19 23:52 Apresoline Hcl Inj IV PUSH 10 mg Q4H PRN Administration SBP > 180 Hydrochlorothiazide 12.5 mg 10/21/19 09:00 10/22/19 09:38 Hydrochlorothiazide PO 12.5 mg QAM BALA Administration Dextrose/Sodium Chloride 1,000 mls @ 25 mls/hr 10/18/19 23
--- NOTE | 2019-10-22 16:03 | PM.IMPN ---
Progress Note: A&P Assessment and Plan (1) Cardiac arrest with successful resuscitation: Code(s): I46.9 - Cardiac arrest, cause unspecified Status: Acute Assessment and Plan: Likely primary cardiac arrest due to cardiac arrhythmia and/or [place]. extubated rewarmed Pt had VF arrest l Not likely as pt has good speech and movements in limbs. (2) Hypertension: Qualifiers: Hypertension type: essential hypertension Qualified Code(s): I10 - Essential (primary) hypertension Code(s): I10 - Essential (primary) hypertension Status: Acute Assessment and Plan: Continue to monitor blood pressures closely. Additional Plan other issues slight weakness. cardiac cath on thursday and defibrillator soon after, mild memory issues noticed no other major neurological deficits. Subjective Date/time seen: 10/22/19 16:03 Interval history: 64 year old male with a past medical history of hypertension, hyperlipidemia and chronic pain who presented to the ER from home after his witnessed him go unresponsive patient was found to be pulseless on EMS arrival to the home. Pt temperature back nl, moving all his limbs and appears oriented. pt denies chest pain. slight weakness. Mild memory issues noticed. pt had a swallow study. ok to eat. BC are positive in one bottle only. Pt to have cardiac cath thursday. And defibrillator soon. Review of Systems Review of Systems: All systems reviewed & are unremarkable except as noted in HPI and below Exam Narrative: Exam Narrative: Pt is moving all 4 limbs vitals are better RRR chest is clear legs non edematous Objective Data Vital Signs Vital Signs: Vital Signs - 24 hr 10/21/19 18:00 10/21/19 19:37 10/21/19 20:00 Temperature 36.1 C L Pulse Rate 89 97 97 Respiratory Rate 16 16 Blood Pressure 137/73 Pulse Oximetry 100 100 10/21/19 20:58 10/21/19 22:00 10/22/19 00:00 Temperature 36.2 C L Pulse Rate 94 92 82 Respiratory Rate 20 Blood Pressure 147/87 H Pulse Oximetry 100 10/22/19 02:00 10/22/19 04:00 10/22/19 05:18 Temperature 37.3 C Pulse Rate 97 89 95 Respiratory Rate 20 Blood Pressure 140/83 Pulse Oximetry 98 10/22/19 08:00 10/22/19 09:37 10/22/19 10:00 Temperature 35.8 C L Pulse Rate 100 108 H 58 L Respiratory Rate 16 Blood Pressure 151/83 H Pulse Oximetry 99 10/22/19 12:00 Temperature 36.1 C L Pulse Rate 91 Respiratory Rate 16 Blood Pressure 147/95 H Pulse Oximetry 99 Intake/Output Intake/Output: Intake & Output 10/19/19 10/20/19 10/21/19 10/22/19 23:59 23:59 23:59 23:59 Intake Total 2889.5 3363.4 926.4 1046 Output Total 1444 2700 1475 630 Balance 1445.5 663.4 -548.6 416 Meds/Results Medications: Active Medications Generic Name Dose Route Start Last Admin Trade Name Freq PRN Reason Stop Dose Admin Acetaminophen 650 mg 10/20/19 07:54 10/20/19 09:01 Tylenol Tablet PO 650 mg Q4H PRN Administration Mild Pain (1-3) or Fever Albuterol 2.5 mg 10/20/19 07:42 10/20/19 08:14 Albuterol Sulf Neb 2.5mg/0.5ml INHALATION 2.5 mg Q6HRT PRN Administration Wheezing Aspirin 325 mg 10/18/19 08:00 10/22/19 09:37 Aspirin PO 325 mg DAILY@0800 BALA Administration Carvedilol 12.5 mg 10/21/19 21:00 10/22/19 09:37 Coreg PO 12.5 mg Q12HR BALA Administration Dextrose 12.5 gm 10/18/19 07:35 10/20/19 05:09 Dextrose 50% Syringe IV PUSH 12.5 gm PRN PRN Administration Hypoglycemia Protocol Enoxaparin Sodium 110 mg 10/18/19 09:00 10/22/19 09:38 Lovenox SUB-Q 110 mg Q12HR BALA Administration Glucagon 1 mg 10/18/19 07:35 Glucagon For Inj IM PRN PRN Hypoglycemia Protocol Glucose 15 gm 10/18/19 07:35 Glutose 15 PO PRN PRN Hypoglycemia Protocol Hydralazine HCl 10 mg 10/19/19 07:54 10/20/19 23:52 Apresoline Hcl Inj IV PUSH 10 mg Q4H PRN Ad
[2019-10-23] VITALS (21 sets, daily range): BP systolic 75–131; BP diastolic 40–78; PULSE 64–103; RESP 16–20; TEMP 35.8–36.9; O2SAT 92–99
[2019-10-23 04:51] LABS: Hematocrit 34.8 % (42.0-52.0); Hemoglobin 11.3 g/dL (14.0-18.0); Mean Corpuscular HGB Conc 32.5 g/dl (32-36); Mean Corpuscular Hemoglobin 31.7 pg (26-34); Mean Corpuscular Volume 97.5 fl (80-100); Mean Platelet Volume 9.6 fl (7.4-10.4); Platelet Count Result 244 k/mm3 (150-375); Red Blood Count 3.57 M/mm3 (4.6-6.20); White Blood Count 8.4 K/mm3 (4.5-10.0)
[2019-10-23 05:06] LABS: Alanine Aminotransferase 48 U/L (4-50); Albumin Level 3.6 g/dL (3.5-5.1); Alkaline Phosphatase 75 U/L (38-126); Anion Gap 8 mmol/L (8-16); Aspartate Amino Transferase 28 U/L (17-59); Bilirubin,Total 0.8 mg/dL (0.2-1.3); Blood Urea Nitrogen 22 mg/dL (9-20); Calcium 8.4 mg/dL (8.4-10.2); Carbon Dioxide 29 mmol/L (22-30); Chloride 103 mmol/L (98-107); Estimated CRCL calculation 80 ml/min; Estimated Glomerular Filt Rate > 60; Glucose 125 mg/dL (75-110); Phosphorus 4.2 mg/dL (2.5-4.5); Potassium 3.2 mmol/L (3.4-5.0); Sodium 140 mmol/L (137-145)
[2019-10-23] MEDS: ACETAMINOPHEN 325 MG TABLET 650 MG PO ×2 (06:33→11:11)
--- NOTE | 2019-10-23 07:52 | PC.NURSE ---
Pt noted to be attempting to climb out of bed and thrashing around in bed all night. Pt re-educated multiple times on the importance of remaining in bed due to safety. Pt remains very forgetful, pulling off heart monitor and attempting to pull out IV catheter. 0445-Pt spilled entire pitcher of ice water on himself and this RN helped Pt with cleaning up/bathing. While bathing Pt, this RN noted the Pt to have new swelling and bruising to his Rt groin. Rt groin palpated, causing the Pt to scream out in pain. Large hematoma noted around old puncture site. Femoral pressure applied x10 minutes and an attempt made to compress out hematoma. Dr Zarco called and updated with the Pt's condition and findings. Dr Zarco came to bedside to assess the Pt. Ice pack applied to Rt groin as ordered. Pt educated on the importance of leaving the ice pack in place and staying still in the bed. Pt states I am so sorry and I will try to be better . Will continue to monitor patient closely.
--- NOTE | 2019-10-23 09:00 | PC.NURSE ---
consulted for Right Groin hematoma. Received new orders to apply a FEMOSTOP and have patient remain on bedrest for two hours prior to physician coming to assess hematoma. FEMOSTOP applied per protocol. Pressure remain at 40mm/hg with pedal pulses palpable at +3. Right groin warm, firm, with purple bruising along right medial groin area. Will continue to monitor.
[2019-10-23] MEDS: ASPIRIN 325 MG TABLET PO (09:10)
[2019-10-23] MEDS: hydroCHLOROthiazide 12.5 MG CAPSULE PO (09:10)
[2019-10-23] MEDS: SIMVASTATIN 20 MG TABLET 40 MG FEED TUBE (09:10)
[2019-10-23] MEDS: carvediloL 12.5 MG TABLET PO (09:10)
[2019-10-23] MEDS: LOSARTAN POTASSIUM 100 MG TABLET PO (09:10)
[2019-10-23] MEDS: PANTOPRAZOLE SODIUM IV 40 MG VIAL IV PUSH ×2 (09:10→20:00)
[2019-10-23] MEDS: ENOXAPARIN 120 MG/0.8 ML SYRINGE 110 MG SUB-Q (09:11)
--- NOTE | 2019-10-23 10:22 | PM.PNCARD ---
Progress Note: A&P Additional Plan 64-year-old man with: [id number] VFib arrest obviously unexpected with no cardiac history and essentially normal looking echocardiogram. Plans are in place for diagnostic left heart catheterization tomorrow. I may elect to put this off if the patient is bleeding from an arterial puncture site related to the femoral arterial line from 5 days ago. Surgery has been consulted appropriately. Unfortunately we do not have a vascular technical assistance consultant here. Following consultation with the surgeon the Femstop will be released and it may or may not be necessary to consider a right groin ultrasound to rule out a pseudoaneurysm. I will determine based on the course of this whether it would be prudent to proceed with non emergency catheterization tomorrow. Zach Ibrahim MD [facility] Subjective Date/time seen: Date of service:10/23/19 10:22 Interval history: Follow-up visit in this 64-year-old man who presented following abrupt VFib arrest as an outpatient and has made a remarkable neurological recovery. Patient has a Femstop on his right groin has a came into the room to see him and he is obviously uncomfortable with the device. The nursing staff indicate that he was noted to have a right groin hematoma when they were checking on him at approximately 3:24 a.m.. The hospitalist ordered a cold ice pack to the groin site and a couple of hours ago surgeon was consulted who ordered the Femstop device. This is the site of the arterial line that was placed on admission 5 days ago. The staff indicate the patient was agitated and thrashing about during the night presumably resulting in the development of a arterial bleed. He has no other cardiac complaints. Exam Const: General: uncomfortable Other: 64-year-old man on comfortable with right groin hematoma and Femstop device in place HENMT: Mouth: Yes moist mucous membranes Eyes: Sclera: sclerae normal Pupils: Equal, round and reactive pupils present Neck: Neck: supple and no JVD Resp: Effort & Inspection: normal respiratory effort Auscultation: clear to auscultation bilaterally Cardio: Rate: regular rate GI: Auscultation: normal bowel sounds Skin: General skin exam: normal color Neuro: Cognition (Neuro): normal cognition Extrem: Other: right groin hematoma noted, no external bleeding. Femstop in place normal pulse in the right foot Objective Data Vital Signs Vital Signs: Vital Signs - 24 hr 10/22/19 12:00 10/22/19 14:00 10/22/19 16:00 Temperature 36.1 C L 36.1 C L Pulse Rate 91 84 81 Pulse Rate [Right Pedal (Dorsalis Pedis) Doppler] Respiratory Rate 16 20 Blood Pressure 147/95 H 132/73 Pulse Oximetry 99 97 10/22/19 18:00 10/22/19 19:40 10/22/19 20:00 Temperature 36.0 C L Pulse Rate 91 85 85 Pulse Rate [Right Pedal (Dorsalis Pedis) Doppler] Respiratory Rate 20 20 Blood Pressure 134/69 Pulse Oximetry 99 99 10/22/19 22:00 10/22/19 23:45 10/23/19 00:00 Temperature 36.9 C Pulse Rate 85 95 86 Pulse Rate [Right Pedal (Dorsalis Pedis) Doppler] Respiratory Rate 20 20 Blood Pressure 128/66 Pulse Oximetry 99 99 10/23/19 02:00 10/23/19 04:00 10/23/19 06:00 Temperature 36.2 C L Pulse Rate 89 103 H 88 Pulse Rate [Right Pedal (Dorsalis Pedis) Doppler] Respiratory Rate 18 Blood Pressure 131/78 Pulse Oximetry 97 10/23/19 08:39 10/23/19 09:10 10/23/19 09:16 Temperature 36.0 C L Pulse Rate 91 87 Pulse Rate [Right Pedal (Dorsalis Pedis) Doppler] 84 80 Respiratory Rate 20 Blood Pressure 109/63 Pulse Oximetry 97 10/23/19 09:21 10/23/19 09:25 10/23/19 09:30 Temperature Pulse Rate Pulse Rate [Right Pedal (Dorsalis Pedis) Doppler] 70 84 83 Respiratory Rate Blood Pressure Pulse Oximetry Intake/Output Intake/Output: Intake & Output 10/20/19 10/21/19 10/22/19 10/23/19 23:59 23:59 23:59 23:59 Intake Total 3363.4 926.4 1336 Output
--- NOTE | 2019-10-23 10:23 | PCPTNOTE ---
The patient treatment was not able to be completed on 10/23/19, per RN, patient was placed on bedrest, due to hematoma that appeared overnight. Will plan to continue treatment per plan of care.
[2019-10-23] MEDS: ALPRAZolam 0.5 MG TABLET PO (11:11)
--- NOTE | 2019-10-23 11:59 | PC.NURSE ---
FEMOSTOP removed at 2 hour jh per orders from . Right groin area firm and warm with increased swelling. Will continue to monitor and notify if swelling increases before he arrives to assess patient.
[2019-10-23] MEDS: SODIUM CHLORIDE 0.9% IV 1,000 ML 75 ML IV CONT (12:56)
--- NOTE | 2019-10-23 13:25 | PM.IMPN ---
Progress Note: A&P Assessment and Plan (1) Cardiac arrest with successful resuscitation: Code(s): I46.9 - Cardiac arrest, cause unspecified Status: Acute Assessment and Plan: Likely primary cardiac arrest due to cardiac arrhythmia and/or [place]. extubated rewarmed in ICU Sp VF arrest Pt has good speech and movements in limbs.Some memory issues yesterday Pt had been on full dose lovenox and ASA for anticoagulation. unfortunately developed groin hematoma this morning, noticed this morning @3am (2) Hypertension: Qualifiers: Hypertension type: essential hypertension Qualified Code(s): I10 - Essential (primary) hypertension Code(s): I10 - Essential (primary) hypertension Status: Acute Assessment and Plan: Pt has low Bps. Stop all bP medications (3) Groin hematoma: Code(s): S30.1XXA - Contusion of abdominal wall, initial encounter Status: Acute Assessment and Plan: Unfortunately @324 am this morning. pt developed right groin hematoma. Dispatcher Relay ordered ice pack and femstop was ordered by surgeon, unfortunately lovenox was given this morning. Urgent arterial us on right leg ordered if pt has pseudo aneursym will need transfer to vascular team. pt is on ASA. Which has been stopped. Lovenox and ASA stopped. Bp medications stopped. Also as Bp is low. Pt is increasing agitated and having complaints of pain in the groin is very concerned. Bp running low fluids have been started. 500bolus followed by 1 liter bolus I discussed case with ICU MD Protamine also ordered today. Hematoma likely from arterial line Additional Plan Subjective Date/time seen: 10/23/19 13:25 Interval history: 64 year old male with a past medical history of hypertension, hyperlipidemia and chronic pain who presented to the ER from home after his witnessed him go unresponsive patient was found to be pulseless on EMS arrival to the home. Pt temperature back nl, moving all his limbs and appears oriented. pt denies chest pain. slight weakness. Mild memory issues noticed. Plan was for pt to have cardiac cath thursday. And defibrillator soon. Heart cath and defibrillator plan on hold now. Unfortunately @324 am last night. pt developed right groin hematoma. Dispatcher Relay ordered ice pack and femstop was ordered by surgeon, unfortunately lovenox was given this morning. Urgent arterial us on right leg ordered if pt has pseudo aneursym will need transfer to vascular team. pt is on ASA. Which has been stopped. Hold Bp medications. Also as Bp is low. Pt is increasing agitated and having complaints of pain in the groin is very concerned. Bp running low fluids have been started. Heart cath and defibrillator will be delayed. Hematoma likely from arterial line Review of Systems Review of Systems: ROS unobtainable: Yes other (no chest pain no sob, ongoing agitation and groin pain ) Psychiatric: Comments: Ongoing mild confusion short term memory loss Exam Narrative: Exam Narrative: Pt is moving all 4 limbs vitals are better RRR chest is clear legs non edematous Pt had a hematoma in the right groin with femstop Hematoma likely from arterial line Objective Data Vital Signs Vital Signs: Vital Signs - 24 hr 10/22/19 14:00 10/22/19 16:00 10/22/19 18:00 Temperature 36.1 C L Pulse Rate 84 81 91 Pulse Rate [Right Pedal (Dorsalis Pedis) Doppler] Respiratory Rate 20 Blood Pressure 132/73 Pulse Oximetry 97 10/22/19 19:40 10/22/19 20:00 10/22/19 22:00 Temperature 36.0 C L Pulse Rate 85 85 85 Pulse Rate [Right Pedal (Dorsalis Pedis) Doppler] Respiratory Rate 20 20 Blood Pressure 134/69 Pulse Oximetry 99 99 10/22/19 23:45 10/23/19 00:00 10/23/19 02:00 Temperature 36.9 C Pulse Rate 95 86 89 Pulse Rate [Right Pedal (Dorsalis Pedis) Doppler] Respiratory Rate 20 20 Blood Pressure 128/66 Pulse Oximetry 99 99
--- NOTE | 2019-10-23 13:47 | PM.CNGS ---
Assessment and Plan Assessment and plan (1) Groin hematoma: Code(s): S30.1XXA - Contusion of abdominal wall, initial encounter Status: Acute Assessment and Plan: This reason I was asked to see the patient. Will plan to do a right groin ultrasound to look for a pseudoaneurysm. Would recommend holding all anticoagulation Will check H&H and PTT at 3:00 p.m. today. 1530: Hemoglobin came back 8.4 and PTT was just slightly elevated at 39. (3:00 p.m. today) I then talked over the his situation with Dr. guerra. Since there is no femoral pseudoaneurysm ED does not need to be transferred. However does need to have this monitored. Dr. guerra believes he may consider giving him 1 unit of packed red blood cell transfusion. Will recheck a H&H, PTT, and do a type and screen if not ready done at 10:00 p.m. tonight and a CBC PT PTT in a.m.. Patient is continuing on aspirin but his antihypertensives and any anticoagulation has been held. I agree with this. (2) Cardiac arrest with ventricular fibrillation: Code(s): I46.9 - Cardiac arrest, cause unspecified; I49.01 - Ventricular fibrillation Status: Acute (3) Cardiac arrest with successful resuscitation: Code(s): I46.9 - Cardiac arrest, cause unspecified Status: Acute Assessment and Plan: As per Medicine and Cardiology I discussed this with Dr. Mann and he does not believe the patient needs and full anticoagulation with regard to his heart issuesat this time period (4) Ventricular fibrillation: Code(s): I49.01 - Ventricular fibrillation Status: Acute Assessment and Plan: as per Cardiology (5) Hyperlipidemia: Code(s): E78.5 - Hyperlipidemia, unspecified Status: Acute Assessment and Plan: patient will have medical treatment for this. As per medicine service (6) Hypertension: Qualifiers: Hypertension type: essential hypertension Qualified Code(s): I10 - Essential (primary) hypertension Code(s): I10 - Essential (primary) hypertension Status: Acute Assessment and Plan: Patient actually hypotensive this time. Therefore all hypertensive medications are being held. Patient had some bleeding into his left thigh it from his anticoagulation and recent femoral vein popped femoral artery puncture therefore, he has been given protamine x1 and all anticoagulants will be held except for his aspirin. History of Present Illness Consult details Consult date: 10/23/19 Reason for consult: other (Hematoma in the right groin) Requesting physician: Sommer Miller MD Narrative: This 64-year-old man who presented with an [id number] V ventricular fibrillation arrest. and then spent several days in the ICU. A right 5th femoral arterial line was placed for blood pressure monitoring while in the ICU in the removed on 10/20/2019. Apparently early this morning the nurses began noticing bruising and swelling in the patient's right thigh. Really in the right groin extending somewhat into the right thigh. Because of this surgery consultation was requested with iam. Immediately had the nurse keep the patient lying flat making bed rest and put a Femstop on the right groin for 2 hours. Review of other notes and hisnurse reports that the atient has made a remarkable neurological recovery.,however he is having some difficulty or clumsiness at least ambulating in the tyler with physical therapy. He is alert and responsive but seems to have a rather strange affect. He is easily distractible and wants to pull is count up his face. He also states he does not want here with wrong with him. however states says this is his baseline. Review of Systems Constitutional: Constitutional: Reports no additional constitutional complaints, Reports fatigue and Denies malaise Eyes: Eyes: Denies change in vision and Denies loss of vision ENT: Reports Normal hearing present, Denies howard
[2019-10-23] MEDS: SODIUM CHLORIDE 0.9% IV 1,000 ML 999 ML IV CONT (14:04)
[2019-10-23] MEDS: PROTAMINE SULFATE 50 MG/5 ML VIAL IV PUSH (14:06)
[2019-10-23] MEDS: WATER, STERILE FOR INJECTION 10 ML VIAL XX (14:54)
[2019-10-23] MEDS: SODIUM CHLORIDE 0.9% IV 500 ML IV CONT ×2 (15:00→18:09)
[2019-10-23 15:15] LABS: Hematocrit 25.2 % (42.0-52.0); Hemoglobin 8.2 g/dL (14.0-18.0)
--- NOTE | 2019-10-23 15:18 | PCOTNOTE ---
Patient unable to tolerate treatment this pm due to low blood pressure and medications per RN.
[2019-10-23 15:26] LABS: Partial Thromboplastin Time 39.1 SECONDS (22.3-36.8)
[2019-10-23 22:11] LABS: Hemoglobin 8.2 g/dL (14.0-18.0)
[2019-10-23 22:22] LABS: Partial Thromboplastin Time 39.8 SECONDS (22.3-36.8)
[2019-10-23] MEDS: SODIUM CHLORIDE 0.9% IV 1,000 ML 125 ML IV CONT (23:24)
[2019-10-24] VITALS (16 sets, daily range): BP systolic 114–143; BP diastolic 61–82; PULSE 78–110; RESP 18–24; TEMP 36.2–37.1; O2SAT 97–100
[2019-10-24 04:32] LABS: Hematocrit 23.1 % (42.0-52.0); Hemoglobin 7.7 g/dL (14.0-18.0); Mean Corpuscular HGB Conc 33.3 g/dl (32-36); Mean Corpuscular Hemoglobin 32.1 pg (26-34); Mean Corpuscular Volume 96.3 fl (80-100); Mean Platelet Volume 9.8 fl (7.4-10.4); Platelet Count Result 222 k/mm3 (150-375); Red Cell Distribution Width 12.7 % (11.5-14.5); White Blood Count 8.4 K/mm3 (4.5-10.0)
[2019-10-24 04:45] LABS: Alanine Aminotransferase 33 U/L (4-50); Alkaline Phosphatase 66 U/L (38-126); Anion Gap 5 mmol/L (8-16); Aspartate Amino Transferase 24 U/L (17-59); Bilirubin,Total 0.6 mg/dL (0.2-1.3); Blood Urea Nitrogen 29 mg/dL (9-20); Calcium 7.6 mg/dL (8.4-10.2); Carbon Dioxide 25 mmol/L (22-30); Chloride 106 mmol/L (98-107); Estimated CRCL calculation 61 ml/min; Estimated Glomerular Filt Rate > 60; Glucose 114 mg/dL (75-110); Magnesium 1.9 mg/dL (1.6-2.3); Partial Thromboplastin Time 34.6 SECONDS (22.3-36.8); Phosphorus 3.1 mg/dL (2.5-4.5); Potassium 2.9 mmol/L (3.4-5.0); Sodium 136 mmol/L (137-145)
[2019-10-24] MEDS: SODIUM CHLORIDE 0.9% IV 1,000 ML 125 ML IV CONT (05:44)
[2019-10-24 09:27] LABS: Potassium 3.4 mmol/L (3.4-5.0)
[2019-10-24] MEDS: SIMVASTATIN 20 MG TABLET 40 MG FEED TUBE (10:05)
[2019-10-24] MEDS: POTASSIUM CHLORIDE 20 MEQ PACKET (FOR LIQUID) 40 MEQ PO (10:05)
[2019-10-24] MEDS: PANTOPRAZOLE SODIUM IV 40 MG VIAL IV PUSH ×2 (10:05→20:47)
[2019-10-24 10:42] LABS: Magnesium 1.9 mg/dL (1.6-2.3)
--- NOTE | 2019-10-24 11:30 | PCDIET ---
Nutrition Follow-Up Complete: Nutrition Diagnosis: Inadequate oral intake related to oral intubation as evidenced by NPO diet. Nutrition Goal: Patient to meet estimated nutritional needs. Goal in progress. Patient currently on full liquid diet; Ensure Compact (220kcal, 9g protein) just added BID which is appropriate. Patient reports appetite is fairly good. reports patient having some diarrhea over past 1-2 days. Intake records indicate patient has consumed an average of 63% of meals since 10/22/19. Last recorded weight is 99.8 kg which is stable with yesterday but down from last review. Will continue to monitor. Bowel Motility: BM x 5 this date. Labs Reviewed: Hgb (7.7), Hct (23.1), Glu (114), BUN (29), K (2.9), Na (136), Alb (3.0), Tawanna Ca (8.4) Meds Noted: Albuterol, Atrovent, Protonix, KCl, NS at 120mL/hr Additional Notes: No documented pressure ulcers. Recommend advancing diet to heart healthy, once able. Would continue Ensure Compact BID for now. Nutrition Monitoring and Evaluation: Follow up every 5 days.
[2019-10-24 11:57] LABS: Glucose Point of Care 86 (65-105)
--- NOTE | 2019-10-24 13:50 | PM.PNCARD ---
Progress Note: A&P Assessment and Plan (1) Cardiac arrest with successful resuscitation: Code(s): I46.9 - Cardiac arrest, cause unspecified Status: Acute Assessment and Plan: With significant neurologic recovery. Flight of ideas and constant movement noted. Coronary angiogram is planned and if no ischemic evidence of disease is seen, he will need a defibrillator before discharge. Plan for cardiac catheterization when able. This has been delayed due to the right groin hematoma from the art line that was discontinued several days ago. Restlessnes and movement noted while having conversation with his . Will be a challenge to keep him quiet and still for recovery period for cardiac catheterization. Also concerns about ability to lay still for ICD implant as well as arm movement restrictions in the recovery period. Keep potassium greater than 4 and magnesium greater than 2. Periheral potassium rider and 40 mEq po given today. Will give an additional 40 mEQ this evening. BMP in the morning Follow H&H (2) NSTEMI (non-ST elevated myocardial infarction): Code(s): I21.4 - Non-ST elevation (NSTEMI) myocardial infarction Status: Acute Assessment and Plan: Preserved ejection fraction. Enoxaparin and aspirin were discontinued given right groin hematoma. Restart aspirin 81 mg daily. No pseudoaneurysm on ultrasound. Hematoma noted. Cardiac catheterization was delayed as above. (3) Hypertension: Qualifiers: Hypertension type: essential hypertension Qualified Code(s): I10 - Essential (primary) hypertension Code(s): I10 - Essential (primary) hypertension Status: Acute Assessment and Plan: Hypotensive 10/22. Meds stopped. Will need to restart beta gerry. (4) Hyperlipidemia: Code(s): E78.5 - Hyperlipidemia, unspecified Status: Acute Assessment and Plan: Continue statin (5) Sinus bradycardia: Code(s): R00.1 - Bradycardia, unspecified Status: Acute Assessment and Plan: Beta gerry as above. Heart rate has been stable. Additional Plan Plan discussed with Dr. Ibrahim [id number] 10/24/2019 Time Spent With Patient Time with patient: less than 15 minutes Subjective Date/time seen: 10/24/19 13:50 Interval history: Follow-up for: out of hospital VFib arrest, hematoma right groin from arterial line. Date of service: 10/24/2019 Review of Systems Review of Systems: All systems reviewed & are unremarkable except as noted in HPI and below Constitutional: Constitutional: Denies body ache(s), Denies fatigue and Denies headache(s) Eyes: Eyes: Denies blurry vision ENT: Denies headache(s), Denies lip swelling and Denies epistaxis Cardiovascular: Cardiovascular: Denies chest pain and Denies dyspnea Respiratory: Respiratory: Denies dyspnea Gastrointestinal: Gastrointestinal: Denies abdominal pain, Denies nausea and Denies vomiting Genitourinary: Genitourinary: Denies dysuria Musculoskeletal: Musculoskeletal: Denies myalgias Integumentary/Breasts: Skin/Breast: Denies dry skin and Denies unusual bruising Neurologic: Denies behavioral changes and Denies headache(s) Psychiatric: Psychiatric: Denies behavioral changes Endocrine: Endocrine: Denies fatigue Hematologic/Lymphatic: Hematologic/Lymphatic: Denies easy bleeding Allergic/Immunologic: Allergic/Immunologic: Denies lip swelling Exam Narrative: Exam Narrative: Awake, alert and denying discomfort. Flight of ideas. Inappropriate at times. Const: General: cooperative, comfortable and no acute distress Orientation/consciousness: oriented to person HENMT: General nose exam: no epistaxis Mouth: Yes moist mucous membranes Eyes: General: appearance normal, both eyes and all related structures Sclera: sclerae nor
--- NOTE | 2019-10-24 15:02 | PCPTNOTE ---
Late entry for 1345. Spoke w/ Tl ALARCON, stated Dr García agreed to pt getting OOB w/ therapy.
--- NOTE | 2019-10-24 17:17 | PM.IMPN ---
Progress Note: A&P Assessment and Plan (1) Cardiac arrest with successful resuscitation: Code(s): I46.9 - Cardiac arrest, cause unspecified Status: Acute Assessment and Plan: Likely primary cardiac arrest due to cardiac arrhythmia and/or [place]. extubated rewarmed in ICU Sp VF arrest Pt has good speech and movements in limbs.Some memory issues yesterday Pt had been on full dose lovenox and ASA for anticoagulation. unfortunately developed groin hematoma this morning, noticed this morning @3am 10/24/19 17:17 patient is 64-year-old male had a ventral fibrillation cardiac arrest at home and was revived brought to emergency department for further evaluation found to have elevated tropes and plan was to have a cardiac catheterization, however patient developed hematoma right groin from arterial line. and had ultrasound which does not show any pseudoaneurysm and patient is clinically stable however according to patient's patient is more talkative and flight of ideas unable to focus on the subject, patient seen by Cardiology cardiac catheterization is postponed until patient is clinically stable, also concern the patient is quite agitated will not be able to remain calm and still after the procedure, patient is seen by surgery team recommending to monitor hematoma conservative and no surgical intervention is needed (2) Hypertension: Qualifiers: Hypertension type: essential hypertension Qualified Code(s): I10 - Essential (primary) hypertension Code(s): I10 - Essential (primary) hypertension Status: Acute Assessment and Plan: Pt has low Bps. Stop all bP medications (3) Groin hematoma: Code(s): S30.1XXA - Contusion of abdominal wall, initial encounter Status: Acute Assessment and Plan: Unfortunately @324 am this morning. pt developed right groin hematoma. Director Of Retail Marketing ordered ice pack and femstop was ordered by surgeon, unfortunately lovenox was given this morning. Urgent arterial us on right leg ordered if pt has pseudo aneursym will need transfer to vascular team. pt is on ASA. Which has been stopped. Lovenox and ASA stopped. Bp medications stopped. Also as Bp is low. Pt is increasing agitated and having complaints of pain in the groin is very concerned. Bp running low fluids have been started. 500bolus followed by 1 liter bolus I discussed case with ICU MD Protamine also ordered today. Hematoma likely from arterial line Additional Plan Subjective Date/time seen: 10/24/19 17:17 patient is 64-year-old male had a ventral fibrillation cardiac arrest at home and was revived brought to emergency department for further evaluation found to have elevated tropes and plan was to have a cardiac catheterization, however patient developed hematoma right groin from arterial line. and had ultrasound which does not show any pseudoaneurysm and patient is clinically stable however according to patient's patient is more talkative and flight of ideas unable to focus on the subject, patient seen by Cardiology cardiac catheterization is postponed until patient is clinically stable, also concern the patient is quite agitated will not be able to remain calm and still after the procedure, patient is seen by surgery team recommending to monitor hematoma conservative and no surgical intervention is needed Review of Systems Review of Systems: All systems reviewed & are unremarkable except as noted in HPI and below Exam Const: General: comfortable and no acute distress HENMT: General nose exam: Normal nares present Mouth: Yes moist mucous membranes Eyes: General: appearance normal, both eyes and all related structures Sclera: sclerae normal Neck: Neck: supple Resp: Effort & Inspection: normal respiratory effort Auscultation: clear to auscultation bilaterally Cardio: Rate: regular rate Rhythm: regular rhythm GI: Auscultation: normal bowel sounds :
[2019-10-24] MEDS: POTASSIUM CHLORIDE 20 MEQ TABLET 40 MEQ PO (17:34)
--- NOTE | 2019-10-24 18:19 | PM.PNGS ---
Progress Note: A&P Assessment and Plan (1) Groin hematoma: Onset Date: ~10/23/19 Code(s): S30.1XXA - Contusion of abdominal wall, initial encounter Status: Acute Assessment and Plan: Examination right leg reveals that the swelling is about the same prep softer than yesterday. He has a hematoma because of anticoagulation after having a femoral line. Pressure yesterday as pairs to have stopped any bleeding. Okay for patient to start participating in physical therapy He/they should be cautious about using any rapid strong motions of right lower extremity. Okay to remove the Hola wrap from his upper Rt. thigh. Will sign please call if we can be of further assistance. (2) Cardiac arrest with successful resuscitation: Onset Date: ~10/2019 Code(s): I46.9 - Cardiac arrest, cause unspecified Status: Acute Assessment and Plan: As per hospitalist cardiac service. Additional Plan Will sign this case please if call there is any questions. Time Spent With Patient Time with patient: less than 15 minutes Subjective Subjective Date/Time Seen: 10/24/19 17:19 Patient lying bed far over his right side when I entered the room. Nurse and I helped him up in bed and the reposition himself in the middle of the bed. Patient states he has some problems moving his right lower leg but otherwise feels well notices the fullness in his upper thigh but otherwise not having specific pain. Review of Systems Constitutional: Constitutional: Reports no additional constitutional complaints ENT: Reports other (Mucous Membranes moist.) Cardiovascular: Cardiovascular: Denies dyspnea Respiratory: Respiratory: Denies pain on inspiration and Denies dyspnea Musculoskeletal: Musculoskeletal: Reports other (No calf swelling or edema) Integumentary/Breasts: Skin/Breast: Reports system reviewed and no additional complaints, except as docu Exam HENMT: Mouth: Yes moist mucous membranes Neck: Neck: normal visual inspection Chest: Chest palpation & inspection: normal inspection of the chest Resp: Effort & Inspection: normal respiratory effort Auscultation: clear to auscultation bilaterally Cardio: Jugular venous distension: no JVD Rate: regular rate Rhythm: regular rhythm GI: Rectal Exam: deferred Neuro: General: patient oriented x3 and moves all extremities Speech: normal speech Extrem: General: normal exam except as noted Other: Swelling and bruising just below the groin crease on the right. Centrally overlying the femoral vessels there is a more solid feeling lump otherwise there is some diffuse bruising and fullness. No signs of continuing bleeding. Psych: Mental Status: mental status grossly normal Speech and movement: Normal speech and movement present Affect: normal affect Thought content: Yes Normal thought content present Objective Data Vital Signs Vital Signs: Vital Signs - 24 hr 10/23/19 20:00 10/23/19 22:00 10/23/19 23:01 Temperature 36.9 C Pulse Rate 83 80 78 Respiratory Rate 18 Blood Pressure 97/52 L 108/68 Pulse Oximetry 98 10/24/19 00:00 10/24/19 02:00 10/24/19 04:00 Temperature 37.1 C 36.9 C Pulse Rate 85 88 98 Respiratory Rate 18 18 Blood Pressure 120/67 126/82 Pulse Oximetry 100 97 10/24/19 06:00 10/24/19 08:00 10/24/19 08:34 Temperature 36.2 C L Pulse Rate 90 95 92 Respiratory Rate 22 H Blood Pressure 114/61 Pulse Oximetry 100 10/24/19 10:00 10/24/19 12:00 10/24/19 12:31 Temperature 36.3 C L Pulse Rate 92 90 87 Respiratory Rate 20 Blood Pressure 114/63 Pulse Oximetry 100 10/24/19 14:00 10/24/19 16:46 Temperature 37.0 C Pulse Rate 100 96 Respiratory Rate 22 H Blood Pressure 123/68 Pulse Oximetry 98 Intake/Output Intake/Output: Intake & Output 10/21/19 10/22/19 10/23/19 10/24/19 23:59 23:59 23:59 23:59 Intake Total 926.4 1336 1480 3200 Output Total 1475 850 200 900 Balance -548.6 486 12
[2019-10-24] MEDS: carvediloL 3.125 MG TABLET PO (20:47)
[2019-10-24] MEDS: ALPRAZolam 0.5 MG TABLET PO (23:33)
[2019-10-25] VITALS (25 sets, daily range): BP systolic 108–139; BP diastolic 54–84; PULSE 83–105; RESP 16–22; TEMP 35.9–36.7; O2SAT 94–100
[2019-10-25 05:14] LABS: Mean Corpuscular HGB Conc 31.9 g/dl (32-36); Mean Corpuscular Hemoglobin 31.1 pg (26-34); Mean Corpuscular Volume 97.6 fl (80-100); Mean Platelet Volume 9.8 fl (7.4-10.4); Platelet Count Result 250 k/mm3 (150-375); Red Blood Count 2.09 M/mm3 (4.6-6.20); Red Cell Distribution Width 12.9 % (11.5-14.5); White Blood Count 7.5 K/mm3 (4.5-10.0)
[2019-10-25 05:19] LABS: Hematocrit 20.4 % (42.0-52.0); Hemoglobin 6.5 g/dL (14.0-18.0)
[2019-10-25 05:36] LABS: Alanine Aminotransferase 25 U/L (4-50); Albumin Level 2.8 g/dL (3.5-5.1); Alkaline Phosphatase 58 U/L (38-126); Anion Gap 4 mmol/L (8-16); Aspartate Amino Transferase 22 U/L (17-59); Bilirubin,Total 0.5 mg/dL (0.2-1.3); Blood Urea Nitrogen 17 mg/dL (9-20); Calcium 7.7 mg/dL (8.4-10.2); Carbon Dioxide 27 mmol/L (22-30); Chloride 107 mmol/L (98-107); Estimated CRCL calculation 89 ml/min; Estimated Glomerular Filt Rate > 60; Glucose 102 mg/dL (75-110); Potassium 3.6 mmol/L (3.4-5.0); Sodium 138 mmol/L (137-145)
[2019-10-25] MEDS: POTASSIUM CHLORIDE 20 MEQ PACKET (FOR LIQUID) 40 MEQ PO (08:53)
[2019-10-25] MEDS: SIMVASTATIN 20 MG TABLET 40 MG FEED TUBE (08:53)
[2019-10-25] MEDS: PANTOPRAZOLE SODIUM IV 40 MG VIAL IV PUSH ×2 (08:54→21:05)
[2019-10-25] MEDS: carvediloL 3.125 MG TABLET PO ×2 (10:05→21:05)
[2019-10-25] MEDS: SODIUM CHLORIDE 0.9% IV 250 ML 30 ML IV CONT (11:40)
[2019-10-25] MEDS: TUBING, BLOOD PLUM PUMP TUBING 1 EACH XX (11:40)
--- NOTE | 2019-10-25 13:10 | PCPTNOTE ---
Attempted therapy session, held at this time per RN. Pt is receiving blood. Will attempt again and continue with POC.
--- NOTE | 2019-10-25 15:08 | PM.IMPN ---
Progress Note: A&P Assessment and Plan (1) Cardiac arrest with successful resuscitation: Code(s): I46.9 - Cardiac arrest, cause unspecified Status: Acute Assessment and Plan: Likely primary cardiac arrest due to cardiac arrhythmia and/or [place]. extubated rewarmed in ICU Sp VF arrest Pt has good speech and movements in limbs.Some memory issues yesterday Pt had been on full dose lovenox and ASA for anticoagulation. unfortunately developed groin hematoma this morning, noticed this morning @3am 10/25/19 15:08 patient is 64-year-old male had a ventral fibrillation cardiac arrest at home and was revived brought to emergency department for further evaluation found to have elevated tropes and plan was to have a cardiac catheterization, however patient developed hematoma right groin from arterial line. and had ultrasound which does not show any pseudoaneurysm and patient is clinically stable however according to patient's patient is more talkative and flight of ideas unable to focus on the subject, patient seen by Cardiology cardiac catheterization is postponed until patient is clinically stable, also concern the patient is quite agitated will not be able to remain calm and still after the procedure, patient is seen by surgery team recommending to monitor hematoma conservative and no surgical intervention is needed, today patient is much more calm was able to participate in gentle physical therapy his is present in room, pending cardiology evaluation if the patient needs cardiac catheterization, today patient denies any chest pain shortness of breath palpitation fever or chills (2) Hypertension: Qualifiers: Hypertension type: essential hypertension Qualified Code(s): I10 - Essential (primary) hypertension Code(s): I10 - Essential (primary) hypertension Status: Acute Assessment and Plan: Pt has low Bps. Stop all bP medications (3) Groin hematoma: Onset Date: ~10/23/19 Code(s): S30.1XXA - Contusion of abdominal wall, initial encounter Status: Acute Assessment and Plan: Unfortunately @324 am this morning. pt developed right groin hematoma. Rag Cutting Machine Operator ordered ice pack and femstop was ordered by surgeon, unfortunately lovenox was given this morning. Urgent arterial us on right leg ordered if pt has pseudo aneursym will need transfer to vascular team. pt is on ASA. Which has been stopped. Lovenox and ASA stopped. Bp medications stopped. Also as Bp is low. Pt is increasing agitated and having complaints of pain in the groin is very concerned. Bp running low fluids have been started. 500bolus followed by 1 liter bolus I discussed case with ICU MD Protamine also ordered today. Hematoma likely from arterial line Subjective Date/time seen: 10/25/19 15:08 patient is 64-year-old male had a ventral fibrillation cardiac arrest at home and was revived brought to emergency department for further evaluation found to have elevated tropes and plan was to have a cardiac catheterization, however patient developed hematoma right groin from arterial line. and had ultrasound which does not show any pseudoaneurysm and patient is clinically stable however according to patient's patient is more talkative and flight of ideas unable to focus on the subject, patient seen by Cardiology cardiac catheterization is postponed until patient is clinically stable, also concern the patient is quite agitated will not be able to remain calm and still after the procedure, patient is seen by surgery team recommending to monitor hematoma conservative and no surgical intervention is needed, today patient is much more calm was able to participate in gentle physical therapy his is present in room, pending cardiology evaluation if the patient needs cardiac catheterization, today patient denies any chest pain shortness of breath palpitation fever or chills Review of Systems R
[2019-10-25 17:00] LABS: Hematocrit 24.3 % (42.0-52.0)
--- NOTE | 2019-10-25 17:18 | PM.PNCARD ---
Progress Note: A&P Assessment and Plan (1) Cardiac arrest with successful resuscitation: Code(s): I46.9 - Cardiac arrest, cause unspecified Status: Acute Assessment and Plan: With significant neurologic recovery. Less flight of ideas and movement noted. Up in chair today X2. Coronary angiogram is planned and if no ischemic evidence of disease is seen, he will need a defibrillator before discharge. Plan for cardiac catheterization when able. This has been delayed due to the right groin hematoma from the art line that was discontinued several days ago. Less movements and restlessness today but will still be a challenge to keep him quiet and still for recovery period for cardiac catheterization. Also concerns about ability to lay still for ICD implant as well as arm movement restrictions in the recovery period. Keep potassium greater than 4 and magnesium greater than 2. Potassium supplemented. Continue daily BMP. Transfused 1 unit of blood today. Follow H&H Needs to be stable from the right groin bleed before cardiac catheterization will be performed. (2) NSTEMI (non-ST elevated myocardial infarction): Code(s): I21.4 - Non-ST elevation (NSTEMI) myocardial infarction Status: Acute Assessment and Plan: Preserved ejection fraction. Enoxaparin and aspirin were discontinued given right groin hematoma. Restart aspirin 81 mg daily. No pseudoaneurysm on ultrasound. Hematoma noted. Cardiac catheterization was delayed as above. (3) Hypertension: Qualifiers: Hypertension type: essential hypertension Qualified Code(s): I10 - Essential (primary) hypertension Code(s): I10 - Essential (primary) hypertension Status: Acute Assessment and Plan: Hypotensive 10/22. Meds stopped. Carvedilol restarted at 3.125 q 12 hours. Blood pressure stable. Will try to up titrate tomorrow. (4) Hyperlipidemia: Code(s): E78.5 - Hyperlipidemia, unspecified Status: Acute Assessment and Plan: Continue statin (5) Sinus bradycardia: Code(s): R00.1 - Bradycardia, unspecified Status: Acute Assessment and Plan: Beta gerry as above. Heart rate has been stable. Additional Plan Plan discussed with 1750 10/25/2019 Subjective Date/time seen: 10/25/19 17:18 Interval history: Follow-up for: out of hospital VFib arrest, hematoma right groin from arterial line. Date of service: 10/25/2019 Subjective: Denied chest discomfort, shortness of breath, lightheadedness or palpitations. Denied lightheadedness when out of bed to chair but balance is way off. Review of Systems Review of Systems: All systems reviewed & are unremarkable except as noted in HPI and below Constitutional: Constitutional: Denies body ache(s), Denies fatigue and Denies headache(s) Eyes: Eyes: Denies blurry vision ENT: Denies headache(s), Denies lip swelling and Denies epistaxis Cardiovascular: Cardiovascular: Denies chest pain and Denies dyspnea Respiratory: Respiratory: Denies dyspnea Gastrointestinal: Gastrointestinal: Denies abdominal pain, Denies nausea and Denies vomiting Genitourinary: Genitourinary: Denies dysuria Musculoskeletal: Musculoskeletal: Denies myalgias Integumentary/Breasts: Skin/Breast: Denies dry skin and Denies unusual bruising Neurologic: Denies behavioral changes and Denies headache(s) Psychiatric: Psychiatric: Denies behavioral changes Endocrine: Endocrine: Denies fatigue Hematologic/Lymphatic: Hematologic/Lymphatic: Denies easy bleeding Allergic/Immunologic: Allergic/Immunologic: Denies lip swelling Exam Narrative: Exam Narrative: Awake, alert and denying discomfort. Less restless and less flight of ideas. Const: General: cooperative, comfortable and no acute d
[2019-10-25] MEDS: ALPRAZolam 0.5 MG TABLET PO (21:07)
[2019-10-26] VITALS (14 sets, daily range): BP systolic 123–137; BP diastolic 64–84; PULSE 68–101; RESP 18–22; TEMP 36.2–36.9; O2SAT 94–100
[2019-10-26 04:20] LABS: Hematocrit 22.1 % (42.0-52.0); Hemoglobin 7.2 g/dL (14.0-18.0); Mean Corpuscular HGB Conc 32.6 g/dl (32-36); Mean Corpuscular Hemoglobin 31.7 pg (26-34); Mean Corpuscular Volume 97.4 fl (80-100); Mean Platelet Volume 9.3 fl (7.4-10.4); Platelet Count Result 262 k/mm3 (150-375); Red Blood Count 2.27 M/mm3 (4.6-6.20); Red Cell Distribution Width 13.2 % (11.5-14.5); White Blood Count 7.8 K/mm3 (4.5-10.0)
[2019-10-26 04:41] LABS: Alanine Aminotransferase 24 U/L (4-50); Albumin Level 2.8 g/dL (3.5-5.1); Alkaline Phosphatase 63 U/L (38-126); Aspartate Amino Transferase 21 U/L (17-59); Bilirubin,Total 0.6 mg/dL (0.2-1.3); Blood Urea Nitrogen 14 mg/dL (9-20); Calcium 7.8 mg/dL (8.4-10.2); Carbon Dioxide 29 mmol/L (22-30); Estimated CRCL calculation 89 ml/min; Estimated Glomerular Filt Rate > 60; Glucose 110 mg/dL (75-110); Potassium 3.7 mmol/L (3.4-5.0); Sodium 137 mmol/L (137-145)
[2019-10-26 05:06] LABS: Anion Gap 3 mmol/L (8-16); Chloride 105 mmol/L (98-107)
[2019-10-26] MEDS: PANTOPRAZOLE SODIUM IV 40 MG VIAL IV PUSH ×2 (09:50→21:14)
[2019-10-26] MEDS: SIMVASTATIN 20 MG TABLET 40 MG PO (09:52)
[2019-10-26] MEDS: POTASSIUM CHLORIDE 20 MEQ PACKET (FOR LIQUID) 40 MEQ PO (09:52)
[2019-10-26] MEDS: carvediloL 3.125 MG TABLET PO (09:52)
--- NOTE | 2019-10-26 11:09 | P.CDI_ITS ---
CDI Query Clarification Request - Groin hematoma documented - Hypotension likely secondary to blood loss and hematoma in right inguinal region documented. - 10/20 H&H 13/40 10/21 H&H 11.9/36.8 10/22 H&H 10/24 H&H 6.5/20.4 - One unit of blood transfused 10/24 Please clarify if there is a corresponding diagnosis for above findings: * Acute blood loss anemia * Acute anemia of other cause * Acute on chronic anemia of other cause * Other * Unable to determine <Tabitha Conroy RN - Last Filed: 10/26/19 11:14> Clarified Diagnosis (1) Anemia: Code(s): D64.9 - Anemia, unspecified <Tabitha Conroy RN - Last Filed: 10/26/19 11:14> Status: Acute <Tabitha Conroy RN - Last Filed: 10/26/19 11:14> Assessment and Plan: patient with right groin hematoma most likely patient has acute blood loss anemia <aTmie Adkins MD - Last Filed: 10/26/19 16:00>
[2019-10-26 12:08] LABS: Hematocrit 23.9 % (42.0-52.0); Hemoglobin 7.8 g/dL (14.0-18.0)
[2019-10-26 14:19] LABS: SARS-CoV-2 RNA PCR Negative
--- NOTE | 2019-10-26 15:52 | PM.IMPN ---
Progress Note: A&P Assessment and Plan (1) Cardiac arrest with successful resuscitation: Code(s): I46.9 - Cardiac arrest, cause unspecified Status: Acute Assessment and Plan: Likely primary cardiac arrest due to cardiac arrhythmia and/or [place]. extubated rewarmed in ICU Sp VF arrest Pt has good speech and movements in limbs.Some memory issues yesterday Pt had been on full dose lovenox and ASA for anticoagulation. unfortunately developed groin hematoma this morning, noticed this morning @3am 10/26/19 15:52 patient is 64-year-old male had a ventral fibrillation cardiac arrest at home and was revived brought to emergency department for further evaluation found to have elevated tropes and plan was to have a cardiac catheterization, however patient developed hematoma right groin from arterial line. and had ultrasound which does not show any pseudoaneurysm and patient is clinically stable however according to patient's patient is more talkative and flight of ideas unable to focus on the subject, patient seen by Cardiology cardiac catheterization is postponed until patient is clinically stable, also concern the patient is quite agitated will not be able to remain calm and still after the procedure, patient is seen by surgery team recommending to monitor hematoma conservative and no surgical intervention is needed, today patient is much more calm was able to participate in gentle physical therapy his is present in room, pending cardiology evaluation if the patient needs cardiac catheterization, today patient was able to participate in physical therapy he denies any pain or bleeding, his hemoglobin is stable, denies any chest pain shortness of breath palpitation fever or chills will continue to monitor and further recommendation to follow. (2) Hypertension: Qualifiers: Hypertension type: essential hypertension Qualified Code(s): I10 - Essential (primary) hypertension Code(s): I10 - Essential (primary) hypertension Status: Acute Assessment and Plan: Pt has low Bps. Stop all bP medications (3) Groin hematoma: Onset Date: ~10/23/19 Code(s): S30.1XXA - Contusion of abdominal wall, initial encounter Status: Acute Assessment and Plan: Unfortunately @324 am this morning. pt developed right groin hematoma. Electrical Repairer ordered ice pack and femstop was ordered by surgeon, unfortunately lovenox was given this morning. Urgent arterial us on right leg ordered if pt has pseudo aneursym will need transfer to vascular team. pt is on ASA. Which has been stopped. Lovenox and ASA stopped. Bp medications stopped. Also as Bp is low. Pt is increasing agitated and having complaints of pain in the groin is very concerned. Bp running low fluids have been started. 500bolus followed by 1 liter bolus I discussed case with ICU MD Protamine also ordered today. Hematoma likely from arterial line Subjective Date/time seen: 10/26/19 15:52 patient is 64-year-old male had a ventral fibrillation cardiac arrest at home and was revived brought to emergency department for further evaluation found to have elevated tropes and plan was to have a cardiac catheterization, however patient developed hematoma right groin from arterial line. and had ultrasound which does not show any pseudoaneurysm and patient is clinically stable however according to patient's patient is more talkative and flight of ideas unable to focus on the subject, patient seen by Cardiology cardiac catheterization is postponed until patient is clinically stable, also concern the patient is quite agitated will not be able to remain calm and still after the procedure, patient is seen by surgery team recommending to monitor hematoma conservative and no surgical intervention is needed, today patient is much more calm was able to participate in gentle physical therapy his is present in room, pending cardiolog
--- NOTE | 2019-10-26 17:50 | PM.PNCARD ---
Progress Note: A&P Assessment and Plan (1) Cardiac arrest with successful resuscitation: Code(s): I46.9 - Cardiac arrest, cause unspecified Status: Acute Assessment and Plan: With significant neurologic recovery. Plan for cardiac catheterization when able. This has been delayed due to the right groin hematoma from the art line that was discontinued several days ago. Less restless type movements again today but still feel it will be a challenge to keep him quiet and still for recovery period for cardiac catheterization. Also concerns about ability to lay still for ICD implant as well as arm movement restrictions in the recovery period. Keep potassium greater than 4 and magnesium greater than 2. Potassium supplemented. Continue daily BMP. Transfused 1 unit of blood 10/25/2019. Will want his H&H stable for 24-48 hours after last transfusion. H&H in the morning. Decision for cardiac catheterization is sedated day decision. (2) NSTEMI (non-ST elevated myocardial infarction): Code(s): I21.4 - Non-ST elevation (NSTEMI) myocardial infarction Status: Acute Assessment and Plan: Preserved ejection fraction. Enoxaparin and aspirin were discontinued given right groin hematoma. Restart aspirin 81 mg daily. No pseudoaneurysm on ultrasound. Hematoma noted. Cardiac catheterization was delayed as above. (3) Hypertension: Qualifiers: Hypertension type: essential hypertension Qualified Code(s): I10 - Essential (primary) hypertension Code(s): I10 - Essential (primary) hypertension Status: Acute Assessment and Plan: Hypotensive 10/22. Meds stopped. Carvedilol restarted at 3.125 q 12 hours. Blood pressure stable. Up titrate starting with this evenings dose (4) Hyperlipidemia: Code(s): E78.5 - Hyperlipidemia, unspecified Status: Acute Assessment and Plan: Continue statin (5) Sinus bradycardia: Code(s): R00.1 - Bradycardia, unspecified Status: Acute Assessment and Plan: Beta gerry as above. Heart rate has been stable. Additional Plan Plan discussed with 1800 10/26/2019 Subjective Date/time seen: 10/26/19 17:50 Interval history: Follow-up for: out of hospital VFib arrest, hematoma right groin from arterial line. Date of service: 10/26/2019 Subjective: Up on side of bed. at bedside. No chest discomfort, shortness of breath, lightheadedness or palpitations. Only complaint is his right thigh feels thick and numb. Walked in the [place] with therapy today. Review of Systems Review of Systems: All systems reviewed & are unremarkable except as noted in HPI and below Constitutional: Constitutional: Denies body ache(s), Denies fatigue and Denies headache(s) Eyes: Eyes: Denies blurry vision ENT: Denies headache(s), Denies lip swelling and Denies epistaxis Cardiovascular: Cardiovascular: Denies chest pain and Denies dyspnea Respiratory: Respiratory: Denies dyspnea Gastrointestinal: Gastrointestinal: Denies abdominal pain, Denies nausea and Denies vomiting Genitourinary: Genitourinary: Denies dysuria Musculoskeletal: Musculoskeletal: Denies myalgias Integumentary/Breasts: Skin/Breast: Denies dry skin and Denies unusual bruising Neurologic: Denies behavioral changes and Denies headache(s) Psychiatric: Psychiatric: Denies behavioral changes Endocrine: Endocrine: Denies fatigue Hematologic/Lymphatic: Hematologic/Lymphatic: Denies easy bleeding Allergic/Immunologic: Allergic/Immunologic: Denies lip swelling Exam Narrative: Exam Narrative: Awake, alert and oriented. Does not recall events of being sotalol restless that caused hematoma from art line site. Const: General: cooperative, comfortable and no acute distress Orientation/consciousness: emely
[2019-10-26] MEDS: CALCIUM CARBONATE (TUMS) 500 MG (200 MG ELEMENTAL) PO (18:21)
[2019-10-26] MEDS: ALPRAZolam 0.5 MG TABLET PO (21:14)
[2019-10-26] MEDS: carvediloL 6.25 MG TABLET PO (21:15)
[2019-10-27] VITALS (16 sets, daily range): BP systolic 106–130; BP diastolic 53–67; PULSE 79–100; RESP 18–20; TEMP 36.1–36.9; O2SAT 97–99
[2019-10-27 05:31] LABS: Hematocrit 23.7 % (42.0-52.0); Hemoglobin 7.6 g/dL (14.0-18.0); Mean Corpuscular HGB Conc 32.1 g/dl (32-36); Mean Corpuscular Hemoglobin 31.5 pg (26-34); Mean Corpuscular Volume 98.3 fl (80-100); Mean Platelet Volume 9.9 fl (7.4-10.4); Platelet Count Result 359 k/mm3 (150-375); Red Blood Count 2.41 M/mm3 (4.6-6.20); Red Cell Distribution Width 13.1 % (11.5-14.5); White Blood Count 7.9 K/mm3 (4.5-10.0)
[2019-10-27 05:43] LABS: Alanine Aminotransferase 22 U/L (4-50); Alkaline Phosphatase 74 U/L (38-126); Anion Gap 4 mmol/L (8-16); Aspartate Amino Transferase 20 U/L (17-59); Bilirubin,Total 0.9 mg/dL (0.2-1.3); Blood Urea Nitrogen 13 mg/dL (9-20); Calcium 8.1 mg/dL (8.4-10.2); Carbon Dioxide 30 mmol/L (22-30); Chloride 100 mmol/L (98-107); Estimated CRCL calculation 102 ml/min; Estimated Glomerular Filt Rate > 60; Glucose 110 mg/dL (75-110); Potassium 3.8 mmol/L (3.4-5.0); Sodium 134 mmol/L (137-145)
[2019-10-27] MEDS: ASPIRIN 81 MG ENTERIC TABLET PO (09:58)
[2019-10-27] MEDS: carvediloL 6.25 MG TABLET PO ×2 (09:58→20:54)
[2019-10-27] MEDS: POTASSIUM CHLORIDE 20 MEQ PACKET (FOR LIQUID) 40 MEQ PO (09:58)
[2019-10-27] MEDS: PANTOPRAZOLE SODIUM IV 40 MG VIAL IV PUSH ×2 (09:58→20:53)
[2019-10-27] MEDS: SIMVASTATIN 20 MG TABLET 40 MG PO (09:58)
[2019-10-27] MEDS: CALCIUM CARBONATE (TUMS) 500 MG (200 MG ELEMENTAL) PO (13:03)
[2019-10-27] MEDS: ONDANSETRON INJ 4 MG/2 ML VIAL IV PUSH (13:27)
--- NOTE | 2019-10-27 16:59 | PM.PNCARD ---
Progress Note: A&P Assessment and Plan (1) Cardiac arrest with successful resuscitation: Code(s): I46.9 - Cardiac arrest, cause unspecified Status: Acute Assessment and Plan: after discussions with Dr. Ibrahim he must recover more fully from his extensive hematoma to avoid additional complications. Cardiac catheterization will not be performed this hospitalization as patient is asymptomatic, and hemodynamically stable. We recommend Life Vest despite preserved LV function due to [id number] ventricular fibrillation arrest. We discussed the risks and benefits of LifeVest, reduction sudden cardiac risk. EF 55% with documented VF arrest, etiology unclear. ASA daily. H/H stable but remains signfiicantly anemic. disposition per hospitalist service provided patient remains asymptomatic. PT OT. Discussed life vest at length with patient and his who verbalized understanding and agreed with plan of care. All questions answered to their satisfaction. They wished to proceed with LifeVest. (2) NSTEMI (non-ST elevated myocardial infarction): Code(s): I21.4 - Non-ST elevation (NSTEMI) myocardial infarction Status: Acute Assessment and Plan: Preserved ejection fraction. Enoxaparin and aspirin were discontinued given right groin hematoma. Restart aspirin 81 mg daily. No pseudoaneurysm on ultrasound. Hematoma noted. Cardiac catheterization was delayed as above. (3) Hypertension: Qualifiers: Hypertension type: essential hypertension Qualified Code(s): I10 - Essential (primary) hypertension Code(s): I10 - Essential (primary) hypertension Status: Acute Assessment and Plan: Carvedilol restarted at 3.125 q 12 hours. Blood pressure stable. (4) Hyperlipidemia: Code(s): E78.5 - Hyperlipidemia, unspecified Status: Acute Assessment and Plan: Continue statin (5) Sinus bradycardia: Code(s): R00.1 - Bradycardia, unspecified Status: Acute Assessment and Plan: Beta gerry as above. Heart rate has been stable. Subjective Date/time seen: Date of service: 10/27/19 16:59 Interval history: Follow-up for: out of hospital VFib arrest, hematoma right groin from arterial line. Subjective: Feeling better. Complains of discomfort right leg and groin. Improving somewhat. No shortness of breath or chest pain. No new issues overnight. at bedside. . Review of Systems Review of Systems: All systems reviewed & are unremarkable except as noted in HPI and below Constitutional: Constitutional: Denies body ache(s), Denies fatigue and Denies headache(s) Eyes: Eyes: Denies blurry vision ENT: Denies headache(s), Denies lip swelling and Denies epistaxis Cardiovascular: Cardiovascular: Denies chest pain and Denies dyspnea Respiratory: Respiratory: Denies dyspnea Gastrointestinal: Gastrointestinal: Denies abdominal pain, Denies nausea and Denies vomiting Genitourinary: Genitourinary: Denies dysuria Musculoskeletal: Musculoskeletal: Denies myalgias Integumentary/Breasts: Skin/Breast: Denies dry skin and Denies unusual bruising Neurologic: Denies behavioral changes and Denies headache(s) Psychiatric: Psychiatric: Denies behavioral changes Endocrine: Endocrine: Denies fatigue Hematologic/Lymphatic: Hematologic/Lymphatic: Denies easy bleeding Allergic/Immunologic: Allergic/Immunologic: Denies lip swelling Exam Narrative: Exam Narrative: Awake, alert and oriented. Does not recall events of being sotalol restless that caused hematoma from art line site. Const: General: cooperative, comfortable and no acute distress Orientation/consciousness: patient oriented x3 Other: HENMT: General nose exam: no epistaxis Mouth: Yes moist mucous membranes Eyes: General:
--- NOTE | 2019-10-27 17:28 | PM.IMPN ---
Progress Note: A&P Assessment and Plan (1) Cardiac arrest with successful resuscitation: Onset Date: ~10/2019 Code(s): I46.9 - Cardiac arrest, cause unspecified Status: Acute Assessment and Plan: Likely primary cardiac arrest due to cardiac arrhythmia and/or [place]. extubated rewarmed in ICU Sp VF arrest Pt has good speech and movements in limbs.Some memory issues yesterday Pt had been on full dose lovenox and ASA for anticoagulation. unfortunately developed groin hematoma this morning, noticed this morning @3am 10/27/19 17:28 patient is 64-year-old male had a ventral fibrillation cardiac arrest at home and was revived brought to emergency department for further evaluation found to have elevated tropes and plan was to have a cardiac catheterization, however patient developed hematoma right groin from arterial line. and had ultrasound which does not show any pseudoaneurysm and patient is clinically stable however according to patient's patient is more talkative and flight of ideas unable to focus on the subject, patient seen by Cardiology cardiac catheterization is postponed until patient is clinically stable, also concern the patient is quite agitated will not be able to remain calm and still after the procedure, patient is seen by surgery team recommending to monitor hematoma conservative and no surgical intervention is needed, today patient is much more calm was able to participate in gentle physical therapy his is present in room, pending cardiology evaluation if the patient needs cardiac catheterization, today patient was able to participate in physical therapy he denies any pain or bleeding, his hemoglobin is stable, patient was seen by car clerk pullman as patien had [id number] ventricular fibrillation arrest and recommending LifeVest to prevent sudden cardiac , patient is and agreement and cardiology team will arrange further LifeVest possibly tomorrow if clinically remained stable will discharge the patient home. (2) Hypertension: Qualifiers: Hypertension type: essential hypertension Qualified Code(s): I10 - Essential (primary) hypertension Code(s): I10 - Essential (primary) hypertension Status: Acute Assessment and Plan: (2) Hypertension: Qualifiers: Hypertension type: essential hypertension Qualified Code(s): I10 - Essential (primary) hypertension Code(s): I10 - Essential (primary) hypertension Status: Acute Assessment and Plan: Pt has low Bps. Stop all bP medications (3) Groin hematoma: Onset Date: ~10/23/19 Code(s): S30.1XXA - Contusion of abdominal wall, initial encounter Status: Acute Assessment and Plan: (3) Groin hematoma: Onset Date: ~10/23/19 Code(s): S30.1XXA - Contusion of abdominal wall, initial encounter Status: Acute Assessment and Plan: Unfortunately @324 am this morning. pt developed right groin hematoma. Pizza Chef ordered ice pack and femstop was ordered by surgeon, unfortunately lovenox was given this morning. Urgent arterial us on right leg ordered if pt has pseudo aneursym will need transfer to vascular team. pt is on ASA. Which has been stopped. Lovenox and ASA stopped. Bp medications stopped. Also as Bp is low. Pt is increasing agitated and having complaints of pain in the groin is very concerned. Bp running low fluids have been started. 500bolus followed by 1 liter bolus I discussed case with ICU MD Protamine also ordered today. Hematoma likely from arterial line (4) NSTEMI (non-ST elevated myocardial infarction): Code(s): I21.4 - Non-ST elevation (NSTEMI) myocardial infarction Status: Acute Assessment and Plan: patient is seen by Cardiology does not recommend cardiac catheterization at present Subjective Date/time seen: 10/27/19 17:28 patient is 64-year-old male had a ventral fibrillation cardiac arrest at
[2019-10-27] MEDS: ALPRAZolam 0.5 MG TABLET PO (20:53)
--- NOTE | 2019-10-27 21:50 | PC.NURSE ---
10/26/20: 21:50: life vest telemarketing sales representative called to verify patients date of . he stated that he had a different date of than what we had and that he will figure it out and see patient in am.
[2019-10-28] VITALS (11 sets, daily range): BP systolic 102–137; BP diastolic 61–98; PULSE 75–100; RESP 12–20; TEMP 35.9–36.5; O2SAT 75–99
[2019-10-28 04:49] LABS: Hematocrit 22.7 % (42.0-52.0); Hemoglobin 7.2 g/dL (14.0-18.0); Mean Corpuscular HGB Conc 31.7 g/dl (32-36); Mean Corpuscular Hemoglobin 31.4 pg (26-34); Mean Corpuscular Volume 99.1 fl (80-100); Mean Platelet Volume 9.6 fl (7.4-10.4); Platelet Count Result 405 k/mm3 (150-375); Red Blood Count 2.29 M/mm3 (4.6-6.20); Red Cell Distribution Width 13.3 % (11.5-14.5); White Blood Count 6.7 K/mm3 (4.5-10.0)
[2019-10-28 05:12] LABS: Alanine Aminotransferase 20 U/L (4-50); Albumin Level 2.8 g/dL (3.5-5.1); Alkaline Phosphatase 76 U/L (38-126); Anion Gap 3 mmol/L (8-16); Aspartate Amino Transferase 18 U/L (17-59); Blood Urea Nitrogen 13 mg/dL (9-20); Carbon Dioxide 30 mmol/L (22-30); Chloride 102 mmol/L (98-107); Estimated CRCL calculation 102 ml/min; Estimated Glomerular Filt Rate > 60; Glucose 101 mg/dL (75-110); Potassium 3.8 mmol/L (3.4-5.0); Sodium 135 mmol/L (137-145)
[2019-10-28] MEDS: SIMVASTATIN 20 MG TABLET 40 MG PO (09:04)
[2019-10-28] MEDS: carvediloL 6.25 MG TABLET PO (09:04)
[2019-10-28] MEDS: PANTOPRAZOLE 40 MG TABLET PO (09:04)
[2019-10-28] MEDS: POTASSIUM CHLORIDE 20 MEQ PACKET (FOR LIQUID) 40 MEQ PO (09:04)
[2019-10-28] MEDS: ASPIRIN 81 MG ENTERIC TABLET PO (09:04)
--- NOTE | 2019-10-28 11:23 | PM.PNCARD ---
Progress Note: A&P Additional Plan 64-year-old man with: Out of hospital ventricular fibrillation arrest. This event is NOT related to an acute [place] or acute coronary syndrome. The patient does not have any echocardiographic wall motion abnormalities to indicate acute myocardial infarction. At this point the event is of etiology that is unclear. He does need to have a coronary angiogram performed but there is no urgency to this and since he had a major bleeding event at the site of the arterial line placement it is imprudent to proceed with angiography until this is resolved. For this reason the plan at this point is to supply him with a life vest and arrange outpatient follow-up in our office. I would some point we will arrange for angiography for further evaluation and then a decision to be made about the need for a permanent defibrillator device. Zach Ibrahim MD [facility] Subjective Date/time seen: date of service:10/28/19 11:23 Interval history: Follow-up for: out of hospital VFib arrest, hematoma right groin from arterial line. Subjective: Feeling better. Complains of discomfort right leg and groin. Improving somewhat. No shortness of breath or chest pain. No new issues overnight. at bedside. . Hope/plans are for discharge today. Patient needs to be fitted for the LifeVest and then it appears he is stable for discharge. Long discussion with the patient and again about the eventual plans for coronary angiography and the potential after that for the need for permanent ICD implant depending on those findings. Exam Const: General: comfortable and no acute distress Other: Well-developed well-nourished white male comfortable cooperative in no distress Eyes: General: appearance normal, both eyes and all related structures Neck: Neck: supple and no JVD Thyroid: thyroid normal Resp: Effort & Inspection: normal respiratory effort Auscultation: clear to auscultation bilaterally Cardio: Rate: regular rate Rhythm: regular rhythm GI: Auscultation: normal bowel sounds Skin: General skin exam: normal color Neuro: Cognition (Neuro): normal cognition Extrem: Other: large resolving right thigh hematoma Objective Data Vital Signs Vital Signs: Vital Signs - 24 hr 10/27/19 12:00 10/27/19 14:00 10/27/19 16:00 Temperature 36.9 C 36.7 C Pulse Rate 89 91 84 Respiratory Rate 18 20 Blood Pressure 115/64 128/67 Pulse Oximetry 98 98 10/27/19 18:00 10/27/19 19:39 10/27/19 20:00 Temperature 36.4 C L Pulse Rate 99 92 93 Respiratory Rate 18 18 Blood Pressure 123/53 L Pulse Oximetry 99 99 10/27/19 20:54 10/27/19 22:00 10/27/19 23:47 Temperature 36.5 C Pulse Rate 93 87 81 Respiratory Rate 18 Blood Pressure 109/67 Pulse Oximetry 99 10/28/19 00:00 10/28/19 02:00 10/28/19 04:00 Temperature 36.5 C Pulse Rate 81 75 87 Respiratory Rate 18 20 Blood Pressure 102/61 Pulse Oximetry 99 97 10/28/19 06:00 10/28/19 07:56 10/28/19 09:04 Temperature 36.3 C L Pulse Rate 88 100 93 Respiratory Rate 12 Blood Pressure 137/88 Pulse Oximetry 75 L Intake/Output Intake/Output: Intake & Output 10/25/19 10/26/19 10/27/19 10/28/19 23:59 23:59 23:59 23:59 Intake Total 1930 1370 920 640 Output Total 350 550 804 Balance 1580 820 116 640 Meds/Results Medications: Active Medications Generic Name Dose Route Start Last Admin Trade Name Freq PRN Reason Stop Dose Admin Acetaminophen 650 mg 10/20/19 07:54 10/23/19 11:11 Tylenol Tablet PO 650 mg Q4H PRN Administration Mild Pain (1-3) or Fever Hydrocodone Bitart/Acetaminophen 1 tab 10/23/19 12:37 10/23/19 16:50 Mcroberts 10-325 Mg PO 1 tab Q4H PRN Administration Pain Rated 7-10 Albuterol 2.5 mg 10/20/19 07:42 10/20/19 08:14 Albuterol Sulf Neb 2.5mg/0.5ml INHALATION 2.5 mg Q6HRT PRN Administration Wheezing Alprazolam 0.5 mg 10/23/19 10:50 10/27/19 20:53 X
--- NOTE | 2019-10-28 14:09 | PCDIET ---
Nutrition Follow-Up Complete: Nutrition Diagnosis: Inadequate oral intake related to oral intubation as evidenced by NPO diet. Nutrition Goal: Patient to meet estimated nutritional needs. Goal met. Patient consuming 100% of most meals on heart healthy, soft diet. Recommend discontinuing Ensure Compact since intakes appear adequate. Last recorded weight is 106.8 kg which is increased from last review. +I/O. Bowel Motility: Last documented BM on 10/27/19 x 1. Labs Reviewed: Hgb (7.2), Hct (22.7), Na (135), Alb (2.8), T[place]anna Ca (8.96) Meds Noted: [place], Albuterol, Tums, Atrovent, Protonix, KCl, Zofran Additional Notes: No documented pressure sores. Agree with present diet. Will continue to monitor with same goal. Nutrition Monitoring and Evaluation: Follow up every 5 days.
--- NOTE | 2019-10-28 16:15 | PCOTNOTE ---
Attempted to see pt this PM for Occupational therapy session. Pt was unavailable at this time due to filling out paperwork. Pt's family stated that pt was going to be d/c today possibly. Will continue to see pt per POC duration and frequency.
--- NOTE | 2019-10-28 16:36 | PM.DS ---
DS: Admitting Diagnosis Admitting Diagnosis Admitting Diagnosis: Unresponsive, found pulseless DS: Discharge Diagnosis Discharge Diagnosis (1) Cardiac arrest with successful resuscitation: Onset Date: ~10/2019 Code(s): I46.9 - Cardiac arrest, cause unspecified Status: Acute Assessment and Plan: Likely primary cardiac arrest due to cardiac arrhythmia and/or MD. extubated rewarmed in ICU Sp VF arrest Pt has good speech and movements in limbs.Some memory issues yesterday Pt had been on full dose lovenox and ASA for anticoagulation. unfortunately developed groin hematoma this morning, noticed this morning @3am 10/27/19 17:28 patient is 64-year-old male had a ventral fibrillation cardiac arrest at home and was revived brought to emergency department for further evaluation found to have elevated tropes and plan was to have a cardiac catheterization, however patient developed hematoma right groin from arterial line. and had ultrasound which does not show any pseudoaneurysm and patient is clinically stable however according to patient's patient is more talkative and flight of ideas unable to focus on the subject, patient seen by Cardiology cardiac catheterization is postponed until patient is clinically stable, also concern the patient is quite agitated will not be able to remain calm and still after the procedure, patient is seen by surgery team recommending to monitor hematoma conservative and no surgical intervention is needed, today patient is much more calm was able to participate in gentle physical therapy his is present in room, pending cardiology evaluation if the patient needs cardiac catheterization, today patient was able to participate in physical therapy he denies any pain or bleeding, his hemoglobin is stable, patient was seen by oyster bed worker as patien had [id number] ventricular fibrillation arrest and recommending LifeVest to prevent sudden cardiac , patient is and agreement and cardiology team will arrange further LifeVest possibly tomorrow if clinically remained stable will discharge the patient home. (2) Hypertension: Qualifiers: Hypertension type: essential hypertension Qualified Code(s): I10 - Essential (primary) hypertension Code(s): I10 - Essential (primary) hypertension Status: Acute Assessment and Plan: (2) Hypertension: Qualifiers: Hypertension type: essential hypertension Qualified Code(s): I10 - Essential (primary) hypertension Code(s): I10 - Essential (primary) hypertension Status: Acute Assessment and Plan: Pt has low Bps. Stop all bP medications (3) Groin hematoma: Onset Date: ~10/23/19 Code(s): S30.1XXA - Contusion of abdominal wall, initial encounter Status: Acute Assessment and Plan: (3) Groin hematoma: Onset Date: ~10/23/19 Code(s): S30.1XXA - Contusion of abdominal wall, initial encounter Status: Acute Assessment and Plan: Unfortunately @324 am this morning. pt developed right groin hematoma. Fine Arts Model ordered ice pack and femstop was ordered by surgeon, unfortunately lovenox was given this morning. Urgent arterial us on right leg ordered if pt has pseudo aneursym will need transfer to vascular team. pt is on ASA. Which has been stopped. Lovenox and ASA stopped. Bp medications stopped. Also as Bp is low. Pt is increasing agitated and having complaints of pain in the groin is very concerned. Bp running low fluids have been started. 500bolus followed by 1 liter bolus I discussed case with ICU MD Protamine also ordered today. Hematoma likely from arterial line (4) NSTEMI (non-ST elevated myocardial infarction): Code(s): I21.4 - Non-ST elevation (NSTEMI) myocardial infarction Status: Acute Assessment and Plan: patient is seen by Cardiology does not recommend cardiac catheterization at present DS: Summary H
== END 2019-10-28 17:23 | disposition home health service (06) | DRG 280 ==
LOC: ANHED 21:42 → ANHICU 22:33 → ANHIMU 10-23 08:45 → ANHICU 10-31 11:59 → ANHIMU 10-31 11:59
PROVIDERS: Family Medicine; Internal Medicine; Surgery; Admitting Provider Internal Medicine; Emergency Provider Emergency Medicine; Visit Provider Family Medicine
DX: I21.4 Non-ST elevation (NSTEMI) myocardial infarction (principal); J96.00 Acute respiratory failure, unspecified whether with hypoxia or hypercapnia; I49.01 Ventricular fibrillation; I46.2 Cardiac arrest due to underlying cardiac condition; G93.1 Anoxic brain damage, not elsewhere classified; Z20.828 Contact with and (suspected) exposure to other viral communicable diseases; R79.89 Other specified abnormal findings of blood chemistry; I10 Essential (primary) hypertension; E78.5 Hyperlipidemia, unspecified; E66.9 Obesity, unspecified; G89.29 Other chronic pain; E87.6 Hypokalemia; R50.9 Fever, unspecified; S30.1XXA Contusion of abdominal wall, initial encounter; X58.XXXA Exposure to other specified factors, initial encounter; D64.9 Anemia, unspecified; Z79.899 Other long term (current) drug therapy; Z87.891 Personal history of nicotine dependence
CPT/HCPCS: 36415; 36430; 36556; 36600; 51702; 70450; 71045; 74018; 80048; 80053; 80061; 80076; 80307; 81001; 81003; 82375; 82550; 82805; 83050; 83605; 83735; 83880; 84100; 84132; 84484; 85014; 85018; 85025; 85027; 85610; 85730; 86850; 86900; 86901; 86923; 87040; 87070; 87077; 87086; 87186; 87205; 87635; 92610; 93005; 93926; 94003; 94640; 96365; 96375; 97110; 97116; 97161; 97165; 97530; 97535; 99285; A9270; C1751; C8929; C9113; C9803; J0282; J0360; J0461; J1650; J1940; J2250; J2405; J2704; J2720; J2930; J3010; J3475; J3480; J7030; J7040; J7042; J7050; J7060; P9016; Q9957; U0003

== ENCOUNTER 2019-11-03 12:11 | Emergency (ER) | payer MEDICARE, OTHER, SELFPAY ==
--- NOTE | ~2019-11-03 | CT_ITS ---
EXAMINATION: CTA abd aorta runoff DATE: 11/03/2019 14:25 INDICATION: Right lower limb swelling and pain. TECHNIQUE: Computed tomographic angiography (CTA) of the abdominal, pelvis, and both lower extremitie s was performed with 150 mL Omnipaque-350 intravenous contrast. Automated exposure control and iterat zaire reconstruction technique were employed. The dose-length product was 1720.50 mGy-cm. Maximum inten sity projection 3D-reconstructions of the arteries were created by the technologist on a separate wor kstation. COMPARISON: Ultrasound 10/23/2019 FINDINGS: ABDOMINAL AORTA AND ITS BRANCHES: There is mild aortic atherosclerosis. There is no significant stenosis of abdominal aorta, celiac axi s, superior mesenteric artery, inferior mesenteric artery, or the renal arteries. PELVIC VASCULATURE: There is no significant stenosis of the common iliac arteries, internal iliac arteries, or external i liac arteries. RIGHT LOWER EXTREMITY VASCULATURE: There is no significant stenosis of right common femoral artery, profunda femoris, superficial femora l artery, popliteal artery, tibioperoneal trunk, anterior or posterior tibial arteries, or peroneal a rtery. There is a 4.1 x 8.5 cm intramuscular and intermuscular hematoma superficial to right superfic ial femoral artery. No pseudoaneurysm. There is asymmetric subcutaneous edema in right lower limb. LEFT LOWER EXTREMITY VASCULATURE: There is no significant stenosis of left common femoral artery, profunda femoris, superficial femoral artery, popliteal artery, tibioperoneal trunk, anterior or posterior tibial arteries, or peroneal ar merari. ADDITIONAL FINDINGS: The visualized portions of the lung bases demonstrate mild atelectasis. No pleural effusion. The hear t size is normal. No pericardial effusion. There are cysts in the liver measuring up to 14 mm. There are changes of cholecystectomy. The spleen, pancreas, and adrenal glands are normal. There is cortica l thinning of the kidneys. The prostate is mildly enlarged. There are changes of bilateral inguinal h ernia repairs. There is diverticulosis of the colon without evidence of diverticulitis. There are no dilated loops of bowel. There are changes of appendectomy. There are no pathologically enlarged lymph nodes. There is no free intraperitoneal fluid. There is lumbar levoscoliosis and severe spondylosis. IMPRESSION: 1. Hematoma superficial to right superficial femoral artery. No pseudoaneurysm. 2. No significant arterial occlusive disease. Bilateral three-vessel runoff. Reviewed, dictated and finalized at location B. IMPRESSION: 1. Hematoma superficial to right superficial femoral artery. No pseudoaneurysm . 2. No significant arterial occlusive disease. Bilateral three-vessel runoff.
--- NOTE | ~2019-11-03 | US_ITS ---
EXAMINATION: US venous doppler LE RT EXAM DATE: 11/03/2019 13:23 INDICATION: Right lower extremity swelling. TECHNIQUE: Multiple grayscale, color flow and Doppler images of the right lower extremity deep venous system were obtained and reviewed. There is no prior study for comparison. FINDINGS: The right common femoral, femoral and profunda veins demonstrate normal color flow, respira tory variation, augmentation and compressibility. Compressibility, color flow confirmed within the r ight popliteal, posterior tibial, peroneal, and greater saphenous veins. Scanning in the right groin demonstrates a large heterogeneously hypoechoic avascular region consiste nt with hematoma seroma, contiguous with the right common femoral artery and vein. Doppler evaluation did not identify any component with flow, no evidence of pseudoaneurysm. IMPRESSION: 1. No right lower extremity deep venous thrombosis. 2. Large right inguinal hematoma/seroma. Reviewed, dictated and finalized at location A.
[2019-11-03 12:31] VITALS: BP 114/59; PULSE 72; RESP 17; TEMP 36.7; O2SAT 99
--- NOTE | 2019-11-03 12:44 | ED.GENADULT ---
HPI - General Adult General Chief complaint: Extremity Injury, Lower Stated complaint: R LEG NUMBNESS AFTER CARDIAC ARREST 10/17/19 Time Seen by Provider: 11/03/19 12:31 Source: patient and family History of Present Illness HPI narrative: Has been 64-year-old male presents to emergency department for right lower leg swelling, and pain since he was discharged from the hospital after a cardiac arrest. Patient states the swelling pain has not gone away. He also notes tingling and sensory changes to the right lower extremity for the same amount of time. Has not take anything for symptoms so far. No current chest pain or shortness of breath. No abdominal pain. No nausea or vomiting. No fever or chills. Related Data Home Medications Medication Instructions Recorded Confirmed trazodone 50 mg PO HS 10/18/19 11/03/19 Allergies Allergy/AdvReac Type Severity Reaction Status Date / Time latex Allergy Hives Verified 11/03/19 12:38 Review of Systems Review of Systems: Narrative: CONSTITUTIONAL: Denies fever, chills, or sweats. EYES: Denies visual changes, redness, or discharge. ENT: Denies rhinorrhea, congestion, sore throat, or otalgia. CARDIOVASCULAR: Denies chest pain, palpitations, or edema. RESPIRATORY: Denies cough or dyspnea. GASTROINTESTINAL: Denies abdominal pain, nausea, vomiting, or diarrhea. GENITOURINARY: Denies dysuria or hematuria. SKIN: Denies rash or itching. MUSCULOSKELETAL: Right lower extremity swelling NEUROLOGIC: Denies headache, numbness, dizziness. Tingling to right lower extremity. PSYCHIATRIC: Denies anxiety or depression. [facility] Past Medical History Medical History Essential hypertension GERD (gastroesophageal reflux disease) Hyperlipidemia Obesity Surgical History Surgical History History of bilateral inguinal hernia repair Status post right rotator cuff repair Family History Family History Father Leukemia Other Unknown family medical history Social History Social History Social History: Primary care physician: Dr. Andrei Claire Cods status: Full Code Smoking packs per day: 1 Smoking cigarettes per day: 20.0 Years smoked: 10 Smoking pack-years: 10.00 Smoking status: Former smoker Alcohol intake: current Drinks per week: 30 Substance use: unknown Substance use type: marijuana Other substance usage details: medical marijuana chocolates Last use: 10/16/2019 Additional living arrangements comments: the patient lives in [place] with his of 28 years. He has 3 biologic children and 2 step children who are all adults. 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 Gender identity (if verbalized by the patient): Male Spiritual care concerns: No Exam Narrative: Exam Narrative: GENERAL: Well-appearing, well-nourished, and in no acute distress. HEAD: Normocephalic, atraumatic. EYES: PERRLA and EOMI. ENT: Nares clear, no rhinorrhea or epistaxis. Mucous membranes moist. NECK: Supple. CHEST: Clear to auscultation. No respiratory distress. HEART: Regular rate and rhythm. No murmur heard. Normal peripheral pulses. ABDOMEN: Soft, nontender, nondistended, normal active bowel sounds. EXTREMITIES: Right lower extremity swelling. SKIN: Warm, dry, no rash. NEURO: No focal deficits. Alert and oriented x3. PSYCH: Normal mood and affect. Course Reevaluation(s) Reevaluation #1: 1550 -reevaluated patient, pain improved. CT angio and venous ultrasound negative. Patient does have a hematoma in the right inguinal region. Swelling of right leg likely due to movement of blood from the hematoma down his legs from gravity. No signs of infection or inflammation at this time. Will prescribe morphine
--- NOTE | 2019-11-03 13:01 | PC.NURSE ---
pt to ultrasound
[2019-11-03] MEDS: KETOROLAC 30 MG/ML VIAL (*BKC) IV PUSH (13:30)
[2019-11-03 13:37] LABS: Basophils Percent Auto 0.7 % (0.2-1.2); Eosinophils Absolute Auto 0.1 K/mm3 (0-0.3); Eosinophils Percent Auto 2.1 % (0-4.4); Hematocrit 31.2 % (42.0-52.0); Hemoglobin 9.7 g/dL (14.0-18.0); Immature Granulocyte Absolute 0.02 K/mm3 (0.00-0.031); Immature Granulocyte Percent A 0.5 % (0-0.5); Lymphocytes Absolute Auto 0.68 K/mm3 (0.9-3.2); Lymphocytes Percent Auto 15.5 % (18.3-44.2); Mean Corpuscular HGB Conc 31.1 g/dl (32-36); Mean Corpuscular Hemoglobin 31.2 pg (26-34); Mean Corpuscular Volume 100.3 fl (80-100); Mean Platelet Volume 8.9 fl (7.4-10.4); Monocytes Absolute Auto 0.5 K/mm3 (0.1-0.6); Monocytes Percent Auto 11.6 % (2.6-8.5); Neutrophils Absolute Auto 3.1 K/mm3 (1.3-6.7); Neutrophils Percent Auto 69.6 % (45.5-73.1); Platelet Count Result 564 k/mm3 (150-375); Red Blood Count 3.11 M/mm3 (4.6-6.20); Red Cell Distribution Width 14.9 % (11.5-14.5); White Blood Count 4.4 K/mm3 (4.5-10.0)
[2019-11-03 13:50] LABS: Alanine Aminotransferase 16 U/L (4-50); Albumin Level 3.5 g/dL (3.5-5.1); Alkaline Phosphatase 148 U/L (38-126); Anion Gap 5 mmol/L (8-16); Aspartate Amino Transferase 24 U/L (17-59); Bilirubin,Total 0.8 mg/dL (0.2-1.3); Blood Urea Nitrogen 12 mg/dL (9-20); Calcium 8.2 mg/dL (8.4-10.2); Carbon Dioxide 27 mmol/L (22-30); Chloride 106 mmol/L (98-107); Estimated CRCL calculation 89 ml/min; Estimated Glomerular Filt Rate > 60; Glucose 96 mg/dL (75-110); Potassium 4.4 mmol/L (3.4-5.0); Sodium 138 mmol/L (137-145)
[2019-11-03 14:48] VITALS: BP 117/65; PULSE 74; RESP 15; O2SAT 100
== END 2019-11-03 16:11 | disposition home or self-care (01) ==
PROVIDERS: Emergency Provider Emergency Medicine
DX: M79.89 Other specified soft tissue disorders (principal); L76.32 Postprocedural hematoma of skin and subcutaneous tissue following other procedure; I10 Essential (primary) hypertension; K21.9 Gastro-esophageal reflux disease without esophagitis; E78.5 Hyperlipidemia, unspecified; E66.9 Obesity, unspecified; Z68.35 Body mass index [BMI] 35.0-35.9, adult; Z87.891 Personal history of nicotine dependence
CPT/HCPCS: 36415; 75635; 80053; 85025; 93971; 96374; 99284; J1885; Q9967

== ENCOUNTER 2019-11-25 00:28 | Outpatient (CLI) | payer MEDICARE, OTHER, SELFPAY ==
[2019-11-25 17:08] LABS: SARS-CoV-2 RNA PCR Negative
== END 2019-11-25 00:29 | disposition home or self-care (01) ==
LOC: ANHCOVIDDT 00:28
PROVIDERS: Visit Provider Specialist
DX: Z01.812 Encounter for preprocedural laboratory examination (principal); Z11.59 Encounter for screening for other viral diseases
CPT/HCPCS: 87635; C9803; U0003

== ENCOUNTER 2019-11-27 00:59 | Emergency (ER) | payer MEDICARE, OTHER, SELFPAY ==
--- NOTE | ~2019-11-27 | XR_ITS ---
XR chest 1V portable DATE: 11/27/2019 01:36 INDICATION: Shortness of breath, palpitations TECHNIQUE: Portable AP chest on 11/27/2019 at 0131 hours COMPARISON: 10/21/2019 portable AP chest FINDINGS: The patient was unable to remove a life Bobbi fibrillator, which superimposes the lower [address]. This is a limited portable apical lordotic single view examination. Heart size appears within normal range considering magnification associated with AP projection. No pu lmonary consolidation, pleural effusion or pneumothorax is evident. There is aortic arch calcificatio n. Diffuse osteopenia. IMPRESSION: No apparent active cardiopulmonary disease; limited portable apical lordotic view with rivas perimposed defibrillator breast. Reviewed, dictated and finalized at location A. IMPRESSION: No apparent active cardiopulmonary disease; limited portable apical lordotic view with superimposed defibrillator breast.
[2019-11-27 01:03] VITALS: BP 93/58; PULSE 198; RESP 24; O2SAT 100
[2019-11-27] MEDS: ADENOSINE IV SOLN 6 MG/2 ML VIAL 18 MG (01:13)
--- NOTE | 2019-11-27 01:15 | PC.NURSE ---
[address] Neal at bedside. VORB give 6mg Adenosine rapid IVP. Patient given med, ERP at bedside. Patient tolerated well. Repeat EKG performed.
[2019-11-27 01:17] VITALS: BP 122/78; PULSE 95; RESP 23; O2SAT 100
[2019-11-27] MEDS: SODIUM CHLORIDE 0.9% IV 1,000 ML 999 ML (01:19)
--- NOTE | 2019-11-27 01:19 | ECG_ITS ---
Measurements Intervals [place] Rate: 200 P: OR: 0 QRS: 53 QRSD: 96 T: 4 QT: 221 QTc: 403 Interpretive Statements SUPRAVENTRICULAR TACHYCARDIA INCOMPLETE RIGHT BUNDLE BRANCH BLOCK NONSPECIFIC ST & T-WAVE ABNORMALITY- ANT/INF LEADS ABNORMAL ECG Electronically Signed On 11-27-2019 8:03:57 CDT by Torrey Guzmán D.O.
--- NOTE | 2019-11-27 01:22 | ECG_ITS ---
Measurements Intervals [place] Rate: 95 P: 23 FL: 146 QRS: 59 QRSD: 98 T: 30 QT: 334 QTc: 421 Interpretive Statements SINUS RHYTHM INCOMPLETE RIGHT BUNDLE BRANCH BLOCK BORDERLINE ECG Electronically Signed On 11-27-2019 8:04:09 CDT by Torrey Guzmán D.O.
--- NOTE | 2019-11-27 01:30 | PC.NURSE ---
Patient taken to radiology.
--- NOTE | 2019-11-27 01:39 | ED.ARRPALP ---
HPI - Arrhythmia/Palpitations General Chief Complaint: Arrhythmia/Palpitations Stated Complaint: Heart Monitor Alarms Time Seen by Provider: 11/27/19 01:15 Source: patient Mode of arrival: ambulatory Limitations: no limitations History of Present Illness HPI narrative: This patient is a 64 year old male with history LA, VFib Cardiac arrest who presents for evaluation of palpitations. Patient states just prior to arrival, he was awaken by his Life vest monitor going off. He states this started an hour ago. He stated to nursing staff he thought it was trying to shock him. He denies chest pain, dizziness . He reports mild sob. He states he suffered a cardiac arrest 10/17/19 and he was discharged with the Life VEst. He is scheduled for a procedure with DR. Ibrahim on Thursday. He also reports pain to right thigh at side a hematoma. His states during his past hospitalization patient developed a right thigh/groin hematoma at site of his femoral artery. He was evaluated in ED 3 weeks ago for this pain and hematoma. He had a doppler and a CT scan that just showed a hematoma. He reports he continue to have pain with movement and touching. Related Data Home Medications Medication Instructions Recorded Confirmed trazodone 50 mg PO HS 10/18/19 11/25/19 furosemide 20 mg PO DAILY 11/25/19 11/25/19 hydrocodone-acetaminophen 11/25/19 losartan 25 mg PO DAILY 11/25/19 11/25/19 pantoprazole 40 mg PO DAILY 11/25/19 11/25/19 Allergies Allergy/AdvReac Type Severity Reaction Status Date / Time latex Allergy Hives Verified 11/27/19 01:18 Review of Systems Review of Systems: All systems reviewed & are unremarkable except as noted in HPI and below Constitutional: Constitutional: Denies chills and Denies fever(s) Cardiovascular: Cardiovascular: Denies chest pain Respiratory: Respiratory: Denies cough and Reports dyspnea Gastrointestinal: Gastrointestinal: Denies abdominal pain, Denies nausea and Denies vomiting [facility] Social History Social History Social History: Primary care physician: Dr. Andrei Claire Cods status: Full Code Smoking packs per day: 1 Smoking cigarettes per day: 20.0 Years smoked: 5 Smoking pack-years: 5.00 Smoking status: Former smoker Tobacco type: cigarettes Second hand tobacco smoke exposure: No Alcohol intake: current Drinks per week: 30 Substance use: never Substance use type: marijuana Other substance usage details: medical marijuana chocolates Last use: 10/16/2019 Additional living arrangements comments: the patient lives in [place] with his of 28 years. He has 3 biologic children and 2 step children who are all adults. 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 Gender identity (if verbalized by the patient): Male Spiritual care concerns: No Exam Const: General: no acute distress and alert; No diaphoretic Orientation/consciousness: patient oriented x3 HENMT: Head: normocephalic and atraumatic General nose exam: No nasal polyps present Face and sinus: face symmetric Mouth: Yes Normal oral and palatal mucosa present, Yes lip normal, Yes oropharynx normal and Yes moist mucous membranes Eyes: EOM: EOMs intact bilaterally Chest: Chest palpation & inspection: normal inspection of the chest Resp: Effort & Inspection: normal respiratory effort and no retractions Auscultation: clear to auscultation bilaterally Cardio: Rate: tachycardic Rhythm: abnormal rhythm Heart sounds: no murmurs GI: GI Palp: Yes Soft to palpation, No Tenderness to palpation present (GI) and No Guarding due to palpation present (GI) Auscultation: normal bowel sounds Back/Spine/Pelvis: Back: no CVA tenderness Neuro: General: patient oriented x3, moves all extremities and CN's II-XI intact bilaterally Extrem: Other: right thigh with area of swelling with
[2019-11-27 01:46] LABS: Basophils Absolute Auto 0.1 K/mm3 (0.0-0.1); Basophils Percent Auto 0.8 % (0.2-1.2); Eosinophils Percent Auto 0.4 % (0-4.4); Hematocrit 37.4 % (42.0-52.0); Hemoglobin 11.7 g/dL (14.0-18.0); Immature Granulocyte Absolute 0.04 K/mm3 (0.00-0.031); Immature Granulocyte Percent A 0.5 % (0-0.5); Lymphocytes Absolute Auto 0.82 K/mm3 (0.9-3.2); Lymphocytes Percent Auto 9.7 % (18.3-44.2); Mean Corpuscular HGB Conc 31.3 g/dl (32-36); Mean Corpuscular Hemoglobin 30.3 pg (26-34); Mean Corpuscular Volume 96.9 fl (80-100); Mean Platelet Volume 9.9 fl (7.4-10.4); Monocytes Percent Auto 12.4 % (2.6-8.5); Neutrophils Absolute Auto 6.4 K/mm3 (1.3-6.7); Neutrophils Percent Auto 76.2 % (45.5-73.1); Platelet Count Result 351 k/mm3 (150-375); Red Blood Count 3.86 M/mm3 (4.6-6.20); Red Cell Distribution Width 15.1 % (11.5-14.5); White Blood Count 8.4 K/mm3 (4.5-10.0)
[2019-11-27 01:56] LABS: INR 1.2; Prothrombin Time 14.4 Seconds (11.1-14.7)
[2019-11-27 01:57] LABS: Partial Thromboplastin Time 41.1 SECONDS (22.3-36.8)
[2019-11-27 02:01] LABS: Magnesium 1.9 mg/dL (1.6-2.3)
[2019-11-27 02:02] LABS: Anion Gap 9 mmol/L (8-16); Blood Urea Nitrogen 16 mg/dL (9-20); Calcium 8.5 mg/dL (8.4-10.2); Carbon Dioxide 23 mmol/L (22-30); Chloride 101 mmol/L (98-107); Estimated CRCL calculation 88 ml/min; Estimated Glomerular Filt Rate > 60; Glucose 147 mg/dL (75-110); Sodium 133 mmol/L (137-145)
[2019-11-27 02:13] LABS: Troponin I < 0.012 ng/mL (0.000-0.034)
[2019-11-27 02:36] LABS: CRP 37.4 mg/dL (<1.0)
[2019-11-27 02:41] VITALS: BP 115/70; PULSE 96; RESP 14; TEMP 36.9; O2SAT 98
[2019-11-27 02:57] VITALS: BP 115/70; PULSE 95; RESP 20; TEMP 36.9; O2SAT 98
== END 2019-11-27 03:00 | disposition home or self-care (01) ==
PROVIDERS: Emergency Provider General Practice
DX: I47.1 Supraventricular tachycardia (principal); L76.32 Postprocedural hematoma of skin and subcutaneous tissue following other procedure; I25.2 Old myocardial infarction; Z87.891 Personal history of nicotine dependence; I45.10 Unspecified right bundle-branch block
CPT/HCPCS: 36415; 71045; 80048; 83735; 84443; 84484; 85025; 85610; 85730; 86140; 93005; 96374; 99284; J0153; J7030

== ENCOUNTER 2019-11-28 13:56 | Inpatient (IN) | payer MEDICARE, OTHER, SELFPAY ==
[2019-11-25 15:27] VITALS: BMI 34.7
[2019-11-28] VITALS (14 sets, daily range): BP systolic 115–149; BP diastolic 63–85; PULSE 83–89; RESP 10–23; TEMP 36.1–36.7; O2SAT 93–100; BMI 35.2
--- NOTE | ~2019-11-28 | US_ITS ---
EXAMINATION: US soft tissue LE RT INDICATION: Right thigh pain, concern for infected hematoma TECHNIQUE: Targeted ultrasound is performed in the area of clinical concern. COMPARISON: 11/03/2019 FINDINGS: There is an 18.0 x 14.4 x 4.8 cm complex fluid collection in the right thigh in the area of clinical concern. There is overlying soft tissue thickening, peripheral vascularity, and posterior a coustic enhancement. IMPRESSION: 1. Complex fluid collection of the right thigh likely reflecting infected hematoma/abscess. Surgical consultation is recommended. Reviewed, dictated and finalized at location A. IMPRESSION: 1. Complex fluid collection of the right thigh likely reflecting infected hemat chevy/abscess. Surgical consultation is recommended.
[2019-11-28 09:46] LABS: Basophils Absolute Auto 0.1 K/mm3 (0.0-0.1); Basophils Percent Auto 0.6 % (0.2-1.2); Eosinophils Percent Auto 0.4 % (0-4.4); Hematocrit 34.5 % (42.0-52.0); Hemoglobin 10.7 g/dL (14.0-18.0); Immature Granulocyte Absolute 0.04 K/mm3 (0.00-0.031); Immature Granulocyte Percent A 0.5 % (0-0.5); Lymphocytes Absolute Auto 0.65 K/mm3 (0.9-3.2); Mean Corpuscular Hemoglobin 29.7 pg (26-34); Mean Corpuscular Volume 95.8 fl (80-100); Mean Platelet Volume 9.4 fl (7.4-10.4); Monocytes Absolute Auto 1.1 K/mm3 (0.1-0.6); Monocytes Percent Auto 12.9 % (2.6-8.5); Neutrophils Absolute Auto 6.3 K/mm3 (1.3-6.7); Neutrophils Percent Auto 77.6 % (45.5-73.1); Platelet Count Result 437 k/mm3 (150-375); Red Cell Distribution Width 15.4 % (11.5-14.5); White Blood Count 8.1 K/mm3 (4.5-10.0)
[2019-11-28 09:49] LABS: INR 1.1; Prothrombin Time 14.1 Seconds (11.1-14.7)
[2019-11-28 09:50] LABS: Anion Gap 6 mmol/L (8-16); Blood Urea Nitrogen 11 mg/dL (9-20); Calcium 8.5 mg/dL (8.4-10.2); Carbon Dioxide 27 mmol/L (22-30); Chloride 103 mmol/L (98-107); Estimated CRCL calculation 98 ml/min; Estimated Glomerular Filt Rate > 60; Glucose 121 mg/dL (75-110); Potassium 4.2 mmol/L (3.4-5.0); Sodium 136 mmol/L (137-145)
--- NOTE | 2019-11-28 10:11 | WPDMODSED ---
Moderate Sedation Note-Pt Data Patient Data Diagnosis: Recent [id number] cardiac arrest persistent right groin hematoma at site of arterial line placed during original hospitalization Present Complaint: right thigh pain related to hematoma Procedure to be performed/Plan: left heart catheterization possible angiogram of right lower extremity Allergies Allergy/AdvReac Type Severity Reaction Status Date / Time latex Allergy Hives Verified 11/27/19 01:18 Home Medications Medication Instructions Recorded Confirmed Type trazodone 50 mg PO HS 10/18/19 11/25/19 History aspirin 81 mg PO QAM #30 tablet 10/28/19 11/25/19 Rx calcium carbonate 200 mg PO Q6H PRN #30 tablet 10/28/19 11/25/19 Rx carvedilol [Coreg] 6.25 mg PO Q12HR #60 tablet 10/28/19 11/25/19 Rx simvastatin 40 mg PO QAM #30 tablet 10/28/19 11/25/19 Rx furosemide 20 mg PO DAILY 11/25/19 11/25/19 History hydrocodone-acetaminophen 11/25/19 History losartan 25 mg PO DAILY 11/25/19 11/25/19 History pantoprazole 40 mg PO DAILY 11/25/19 11/25/19 History cephalexin [Keflex] 500 mg PO Q6H 10 Days #40 cap 11/27/19 Rx metoprolol succinate [Toprol XL] 50 mg PO DAILY #30 tablet 11/27/19 Rx Current Medications: Active Medications Sodium Chloride (Normal Saline Iv) 500 mls @ 100 mls/hr IV CONT .Q5H BALA Sedation/Anesthesia: No previous sedation/anesthesia problems (including family history). [facility] Social History Social History Social History: Primary care physician: Dr. Andrei Claire Cods status: Full Code Smoking packs per day: 1 Smoking cigarettes per day: 20.0 Years smoked: 5 Smoking pack-years: 5.00 Smoking status: Former smoker Tobacco type: cigarettes Second hand tobacco smoke exposure: No Alcohol intake: current Drinks per week: 30 Substance use: never Substance use type: marijuana Other substance usage details: medical marijuana chocolates Last use: 10/16/2019 Living arrangements: with family Additional living arrangements comments: the patient lives in [place] with his of 28 years. He has 3 biologic children and 2 step children who are all adults. 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 Gender identity (if verbalized by the patient): Male Spiritual care concerns: No Mod Sed Physical Exam Physical Exam Pre Procedural Exam: Normal: Appearance, Throat, Airway, Lungs, Heart Size, Heart Rate, Heart Rhythm, Neuro Exam and Extremities Hours since solid foods: 12 Hours since liquid intake: 12 Internal Medicine - PN: Obj Da Vital Signs Vital Signs: Vital Signs - 24 hr 11/28/19 09:15 Temperature 36.3 C L Pulse Rate 83 Respiratory Rate 10 L Blood Pressure 129/85 Pulse Oximetry 96 Meds/Results Medications: Active Medications Generic Name Dose Route Start Last Admin Trade Name Freq PRN Reason Stop Dose Admin Sodium Chloride 500 mls @ 100 mls/hr 11/28/19 06:10 Normal Saline Iv IV CONT .Q5H BALA Labs CBC & Chem 7: 11/28/19 09:20 11/28/19 09:20 Labs: Laboratory Results - last 24 hr 11/28/19 11/28/19 11/28/19 09:20 09:20 09:20 WBC 8.1 RBC 3.60 L Hgb 10.7 L Hct 34.5 L MCV 95.8 MCH 29.7 MCHC 31.0 L RDW 15.4 H Plt Count 437 H MPV 9.4 Immature Gran % (Auto) 0.5 Neut % (Auto) 77.6 H Lymph % (Auto) 8.0 L Story % (Auto) 12.9 H Eos % (Auto) 0.4 Baso % (Auto) 0.6 Lymph # (Auto) 0.65 L Story # (Auto) 1.1 H Eos # (Auto) 0.0 Baso # (Auto) 0.1 Abs Immat Gran (auto) 0.04 H Absolute Neuts (auto) 6.3 Absolute Nucleated RBC 0.0 Nucleated RBC % 0.0 PT 14.1 INR 1.1 Sodium 136 L Potassium 4.2 Chloride 103 Carbon Dioxide 27 Anion Gap 6 L BUN 11 D Creatinine 0.80 Estim Creat Clear Calc 98 Estimated GFR > 60 Glucose 121 H Calcium
--- NOTE | 2019-11-28 11:11 | WPDCARDPROC ---
Cardiac Cath Procedure Note Date of procedure:: 11/28/19 Performing physician:: Zach Ibrahim MD Indication:: Status post out of hospital cardiac arrest Brief clinical history:: this is a 64-year-old man who experienced an jcl-ek-ldcoxohh cardiac arrest about 1 month ago. He was hospitalized in obviously made a very nice neurological recovery. He has no previous coronary history. Noninvasive evaluation of his heart during the original hospitalization was unremarkable. Angiography was planned at that time but was delayed significantly because of development of a large right groin hematoma that was at the site of an arterial line that was placed in the ICU. He is admitted today for angiography Procedure Procedure performed:: coronary angiography left ventriculography right femoral artery angiography Sedation/Medication given:: fentanyl 50 mg Versed 2 mg case start time 10:44 a.m. case end time 11:04 a.m. sedation provided by Jose Smith RN, trained observer Access site:: left femoral Estimated blood loss:: 15-20 cc Procedure note:: patient was brought to the cardiac catheterization lab in the postabsorptive state the left femoral triangle was prepared and draped in the usual fashion. Anesthesia was provided with 1% lidocaine infiltrated locally. Using the modified Seldinger technique the left common femoral artery was punctured and a 5 Turkish vascular sheath was placed. I then performed left coronary angiography using a standard 5 Turkish FL4 catheter. The right coronary angiogram was performed using a standard 5 Turkish JR4 catheter. Following this I used a 5 Turkish angle pigtail catheter to document left-sided hemodynamics and to injected LV g in the DYER projection. I then pulled the pigtail down to the aortic bifurcation and injected runoff angiogram of the right femoral artery. Procedure was then terminated angiogram was done of the femoral artery through the sheath after which an Angio-Seal device was deployed at the arterial puncture site with a good hemostatic result. 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 Findings:: Hemodynamics: Central aortic pressure was 122/64 left ventricle 122/0 and diastolic pressure 12 there is no systolic gradient on pullback across the aortic valve. The left ventricle is normal in size all segments contract appropriately the global ejection fraction is 50% by visual estimation the left main coronary artery is widely patent the left anterior descending is a medium caliber artery extending down to the apex the LAD and its branches are smooth and angiographically free of disease circumflex is a large caliber vessel giving rise to the marginal branches and a posterior branch. The circumflex system is smooth and angiographically free of disease. The right coronary artery is moderate caliber dominant to the posterior circulation the right coronary artery is smooth and angiographically normal. The right iliac and femoral arteries are angiographically unremarkable. There is no atherosclerotic stenosis and there is no evidence of a pseudoaneurysm or any other extravasation of contrast. Conclusion:: 1. Right coronary dominant circulation with no angiographic evidence of coronary disease 2. normal left ventricular systolic function 3. anatomically normal appearing right femoral artery with large resolving hematoma in the right thigh. Zach Ibrahim MD [facility]
--- NOTE | 2019-11-28 13:30 | PM.IMHP ---
H&P: HPI History of Present Illness Date/Time: 11/28/19 13:30 Chief complaint: right upper leg cellulitis Narrative: Héctor Funes is a 64-year-old male who is being directly admitted to the hospitalist service from the chest pain center post cardiac catheterization for further treatment and evaluation of pain and erythema in the right upper thigh at the site of a previous femoral arterial line. He is known to the hospitalist service and was admitted to us October 17, 2019 after successful resuscitation of an out of hospital ventricular fibrillation arrest. Hypothermia protocol was initiated and he did have good neurologic recovery. After an extensive workup, the etiology of his arrest is still on known and was not felt to be related to an acute KS or acute coronary syndrome with no wall motion abnormalities on echocardiogram. Unfortunately he developed a large hematoma at the side of a right femoral arterial line, sustaining pretty significant blood loss, and cardiac catheterization was deferred. He was seen in the emergency department on November 02 for evaluation of pain at the side of that hematoma with increasing edema of the right thigh. CT angio and venous Doppler ultrasounds were unremarkable aside from a large right inguinal hematoma/seroma noted superficial to the right superficial femoral artery. He has been following with the [facility] in the office with continued improvement at the site. He presented today for elective cardiac catheterization, which was unremarkable as per Dr. Ibrahim's report. He also notes anatomically normal appearing right femoral artery with a large hematoma in the right thigh, however his right groin and thigh looked worse and possibly infected and thus he is being admitted in this setting. The patient describes a constant, severe burning pain in the right groin, exquisitely tender to even mild palpation. He also has a very difficult time walking due to the pain. he gives no significant alleviating factors. Additionally, he reports being shivering cold with chills for the last several weeks and a poor appetite. He denies fever, cold and flu symptoms, paresthesias, skin color and temperature changes of the right leg. Review of Systems Review of Systems: Narrative: Twelve systems were reviewed with pertinent positives and negatives as per HPI. He was discharged with a LifeVest which began to alarm at approximately 23:00 hours on November 27, 2019. At that time he was alert and having no symptoms and he was seen in the emergency department. After discussions with Cardiology on-call, his carvedilol was changed to metoprolol and he has been doing fine since that time. He has not had fevers. No cold or flu symptoms. No chest pain, pleuritic pain, cough, or shortness of breath. He had a normal bowel movement today. No dysuria. Except as documented, all other systems were reviewed and are negative. [facility] Past Medical History Medical History (Updated 11/28/19 @ 15:28 by Bonnie Amador PA-C) Cardiac arrest with successful resuscitation (~10/17/19) Patient experienced out of hospital ventricular fibrillation arrest successful resuscitation. Echocardiogram and cardiac catheterization were unremarkable. On LifeVest as of 11/28/2019. Essential hypertension Gastroesophageal reflux disease Hyperlipidemia Surgical History Surgical History (Updated 11/28/19 @ 14:25 by Bonnie Amador PA-C) History of bilateral inguinal hernia repair History of cardiac catheterization (~11/28/19) No angiographic evidence of coronary artery disease with normal left ventricular systolic function. Status post right rotator cuff repair Family History Family History Father Leukemia Other Unknown family medical history Social History Social History (Updated 11/28/19 @ 14:28 by Bonnie Amador PA-C) Social History: Primary care physician: Dr. Andrei Mack
--- NOTE | 2019-11-28 16:00 | ADMGEN ---
This patient, Héctor Funes, was admitted to Medical Room 343-01. Patient/family oriented to hospital policies and general routines including ID bracelet, bed and alarms, visiting hours, pain management, procedures, bathroom and other care routines, personal items, smoking policy, room service/diet, and visiting hours. Valuables list has been completed. Information on how to activate the Rapid Response Team has been discussed. Patient/Family are encouraged to report perceived risks to care and to ask questions if they do not understand what they are told or what they should do.
[2019-11-28] MEDS: ACETAMINOPHEN 325 MG TABLET 650 MG PO (16:10)
[2019-11-28] MEDS: HYDROcodone/acetaminophen (*CRX) 5-325 MG TABLET 1 TAB PO (17:13)
[2019-11-28 20:13] LABS: CRP 24.9 mg/dL (<1.0)
[2019-11-28] MEDS: MORPHINE SULFATE (*CRX) 2 MG/ML INJ IV PUSH (20:46)
[2019-11-28] MEDS: traZODone HCL 50 MG TABLET PO (21:59)
[2019-11-29] VITALS (15 sets, daily range): BP systolic 117–175; BP diastolic 69–85; PULSE 78–94; RESP 16–20; TEMP 36.3–37; O2SAT 94–100; BMI 35.7
[2019-11-29] MEDS: HYDROcodone/acetaminophen (*CRX) 5-325 MG TABLET 1 TAB PO ×3 (02:46→19:56)
[2019-11-29 05:25] LABS: Hematocrit 30.9 % (42.0-52.0); Hemoglobin 9.8 g/dL (14.0-18.0); Mean Corpuscular HGB Conc 31.7 g/dl (32-36); Mean Corpuscular Hemoglobin 29.6 pg (26-34); Mean Corpuscular Volume 93.4 fl (80-100); Mean Platelet Volume 8.8 fl (7.4-10.4); Platelet Count Result 426 k/mm3 (150-375); Red Blood Count 3.31 M/mm3 (4.6-6.20); Red Cell Distribution Width 15.4 % (11.5-14.5); White Blood Count 7.2 K/mm3 (4.5-10.0)
[2019-11-29 05:41] LABS: Hemoglobin A1C 4.8 % (<5.7)
[2019-11-29 05:43] LABS: Alanine Aminotransferase 24 U/L (4-50); Albumin Level 2.7 g/dL (3.5-5.1); Alkaline Phosphatase 133 U/L (38-126); Anion Gap 3 mmol/L (8-16); Aspartate Amino Transferase 21 U/L (17-59); Bilirubin,Total 0.3 mg/dL (0.2-1.3); Blood Urea Nitrogen 9 mg/dL (9-20); Calcium 8.1 mg/dL (8.4-10.2); Carbon Dioxide 30 mmol/L (22-30); Chloride 101 mmol/L (98-107); Estimated CRCL calculation 98 ml/min; Estimated Glomerular Filt Rate > 60; Glucose 118 mg/dL (75-110); Potassium 3.9 mmol/L (3.4-5.0); Sodium 134 mmol/L (137-145)
--- NOTE | 2019-11-29 08:41 | PM.CNGS ---
Assessment and Plan Assessment and plan (1) Abscess of right groin: Code(s): L02.214 - Cutaneous abscess of groin Status: Acute Assessment and Plan: I have reviewed the imaging, and patient does appear to have a large area of fluctuance in the right groin region. There appears to be an infected hematoma or abscess that will require evacuation. I have recommended incision and drainage of right groin abscess. Due to the size of this abscess and the patient's discomfort with light palpation, will plan to proceed with procedure under IV sedation. Discussed likelihood of requiring some postoperative wound care. Will continue antibiotics at this time. (2) Groin hematoma: Onset Date: ~10/23/19 Qualifiers: Encounter type: initial encounter Qualified Code(s): S30.1XXA - Contusion of abdominal wall, initial encounter Code(s): S30.1XXA - Contusion of abdominal wall, initial encounter Status: Acute History of Present Illness Consult details Consult date: 11/29/19 Reason for consult: other (Right groin abscess /hematoma.) Requesting physician: Bonnei Amador PA-C Narrative: This is a 64-year-old man who presented to the hospital after undergoing cardiac catheterization yesterday. He has a history of VFib arrest and was resuscitated and hospitalized in early October. He had a right femoral arterial line placed during that hospitalization and developed a hematoma. This was monitored and did not appear to be showing any signs of infection initially. He had a CT angiogram done approximately 1 month ago and this showed hematoma but no evidence of pseudoaneurysm. Right iliofemoral angiogram was performed yesterday with the cardiac catheterization and no sign of pseudoaneurysm was seen. Over the past week, he has been having increasing swelling and redness to the area and it is very tender to palpation. The patient denies any fevers or any other changes. He has no open wounds or drainage at the puncture site. Review of Systems Review of Systems: All systems reviewed & are unremarkable except as noted in HPI and below Constitutional: Constitutional: Denies chills and Denies fever(s) Eyes: Eyes: Denies change in vision ENT: Denies hearing loss, Denies neck pain and Denies sore throat Cardiovascular: Cardiovascular: Denies chest pain and Denies dyspnea Respiratory: Respiratory: Denies cough, Denies dyspnea and Denies wheezing Genitourinary: Genitourinary: Denies hematuria and Denies dysuria Musculoskeletal: Musculoskeletal: Denies arthralgias, Denies joint swelling and Denies neck pain Integumentary/Breasts: Skin/Breast: Reports as per HPI Allergic/Immunologic: Allergic/Immunologic: Denies wheezing [facility] Past Medical History Medical History Cardiac arrest with successful resuscitation (~10/17/19) Patient experienced out of hospital ventricular fibrillation arrest successful resuscitation. Echocardiogram and cardiac catheterization were unremarkable. On LifeVest as of 11/28/2019. Essential hypertension Gastroesophageal reflux disease Hyperlipidemia Surgical History Surgical History History of bilateral inguinal hernia repair History of cardiac catheterization (~11/28/19) No angiographic evidence of coronary artery disease with normal left ventricular systolic function. Status post right rotator cuff repair Family History Family History Father Leukemia Other Unknown family medical history Social History Social History Social History: Primary care physician: Dr. Andrei Claire Cods status: Full Code Smoking packs per day: 1 Smoking cigarettes per day: 20.0 Years smoked: 5 Smoking pack-years: 5.00 Smoking status: Former smoker
[2019-11-29] MEDS: LOSARTAN POTASSIUM 25 MG TABLET PO (09:25)
[2019-11-29] MEDS: PANTOPRAZOLE 40 MG TABLET PO (09:25)
[2019-11-29] MEDS: METOPROLOL SUCCINATE EXT REL 50 MG TABCR PO (09:25)
[2019-11-29] MEDS: SIMVASTATIN 20 MG TABLET 40 MG PO (09:25)
--- NOTE | 2019-11-29 10:26 | PM.CNCAR ---
Assessment and Plan Assessment and plan (1) History of cardiac arrest: Code(s): Z86.74 - Personal history of sudden cardiac arrest Status: Acute Assessment and Plan: continue life vest. Patient will need an ICD at this point since he has no coronary disease. This will be on hold though until his leg/groin situation is adequately treated. (2) Essential hypertension: Code(s): I10 - Essential (primary) hypertension Status: Acute Assessment and Plan: Continue metoprolol (3) Groin hematoma: Onset Date: ~10/23/19 Qualifiers: Encounter type: initial encounter Qualified Code(s): S30.1XXA - Contusion of abdominal wall, initial encounter Code(s): S30.1XXA - Contusion of abdominal wall, initial encounter Status: Acute Assessment and Plan: from a previous art line. Formally improving and up until a week ago. Likely infected at this point. (4) Hyperlipidemia: Code(s): E78.5 - Hyperlipidemia, unspecified Status: Acute Assessment and Plan: continue statin History of Present Illness History of Present Illness Consult date/time: 11/29/19 10:26 Requesting physician: Tamika Gore PA-C Consult reason: Other ( recent cardiac arrest. Cardiac catheterization yesterday. Life vest in place) Reason For Visit: right upper leg cellulitis Narrative: date of service 11/29/2019 reason consultation: Recent cardiac arrest, life vest in place, cardiac catheterization yesterday History: Patient is a 64-year-old male who recently had an [id number] cardiac arrest. He did undergo cooling protocol. Echocardiogram showed no wall motion abnormalities. He did recover neurologically pretty well. Unfortunately patient did develop a very large hematoma in the right groin area from an arterial line while in the ICU. He had been seen on a couple of different occasions in the office. It was slowly resolving until about a week ago in which she became more red, inflamed and extremely painful. Patient did have a alert and his ICD recently also showing tachycardia. He went to the hospital and in the emergency room he was found to be in supraventricular tachycardia. This was treated with adenosine. He was given antibiotics and sent home. He was already scheduled for a left heart catheterization yesterday to define his coronary anatomy given his out of hospital cardiac arrest. This was performed in he was not found to have any obstructive coronary disease. His right groin however showed redness, significant swelling and extremely painful to touch. He was subsequently admitted to the hospital service for further workup and evaluation. He was started on IV antibiotics. General surgery was consulted and it is felt that he likely has an infected hematoma or abscess which at this point due to his extreme pain and paresthesias would benefit from I and D. patient denies any chest pain, shortness of breath, syncope, presyncope, paroxysmal nocturnal dyspnea, orthopnea, palpitations. He did have some edema involving the right leg Review of Systems Review of Systems: All systems reviewed & are unremarkable except as noted in HPI and below Constitutional: Constitutional: Denies chills Eyes: Eyes: Denies blurry vision ENT: Reports Normal hearing present Cardiovascular: Cardiovascular: Denies chest pain and Reports pedal edema Respiratory: Respiratory: Denies dyspnea Gastrointestinal: Gastrointestinal: Denies abdominal pain Genitourinary: Genitourinary: Denies dysuria and Denies urinary frequency Musculoskeletal: Musculoskeletal: Denies back pain and Denies neck pain Integumentary/Breasts: Skin/Breast: Reports erythema Comments: right groin area is tender, swollen, indurated Neurologic: Denies headache(s) Psychiatric: Psychiatric: Denies anxiety Endocrine: Endocrine: Denies fatigue Hematologic/Lymphatic: Hematologic/Lymphatic: Denies easy blee
--- NOTE | 2019-11-29 10:44 | PM.IMPN ---
Progress Note: A&P Assessment and Plan (1) Groin hematoma: Onset Date: ~10/23/19 Qualifiers: Encounter type: initial encounter Qualified Code(s): S30.1XXA - Contusion of abdominal wall, initial encounter Code(s): S30.1XXA - Contusion of abdominal wall, initial encounter Status: Acute Assessment and Plan: At site of previous femoral art line from about 1 mo ago. Worsening over time and appears now may be infected, contributing to significant pain. Appreciate general surgery consultation - Dr Coyne to perform I&D this afternoon. Continue IV Ancef (day 2) and monitor. (2) Cellulitis of right thigh: Code(s): L03.115 - Cellulitis of right lower limb Status: Acute Assessment and Plan: Secondary to above. (3) History of cardiac arrest: Code(s): Z86.74 - Personal history of sudden cardiac arrest Status: Chronic Assessment and Plan: Patient was successfully resuscitated after out of hospital V fib arrest 1 month ago. Noninvasive coronary workup unremarkable. He presented yesterday for elective cardiac cath which was also unremarkable. Admitted now due to concerns with the R thigh hematoma. Cardiology following - appreciate recommendations. (4) Essential hypertension: Code(s): I10 - Essential (primary) hypertension Status: Chronic Assessment and Plan: Last . Today he remains on cozaar, metoprolol. Monitor BP and adjust treatment as needed. Cardiology following - appreciate input. (5) Hyperlipidemia: Qualifiers: Hyperlipidemia type: unspecified Qualified Code(s): E78.5 - Hyperlipidemia, unspecified Code(s): E78.5 - Hyperlipidemia, unspecified Status: Chronic Assessment and Plan: Maintained on statin therapy. (6) Acute blood loss anemia: Code(s): D62 - Acute posthemorrhagic anemia Status: Acute Assessment and Plan: With hematoma. H&H dropping, will monitor CBC and transfuse PRN. (7) Suspected sleep apnea: Code(s): R29.818 - Other symptoms and signs involving the nervous system Status: Acute Assessment and Plan: Apnea Link from last night is mildly positive; would recommend follow up with outpatient sleep study. Follow up with PCP. Subjective Date/time seen: 11/29/19 0915 Interval history: Mr. Funes is a 64yo M admitted for an infected right thigh hematoma. He is pretty uncomfortable this morning with significant pain to right thigh. Did not sleep much. He denies chest pain or shortness of breath. Denies nausea or vomiting. Review of Systems Review of Systems: Narrative: Twelve systems were reviewed with pertinent positives and negatives as per HPI. Exam Narrative: Exam Narrative: General: Male resting sitting up in bed, uncomfortable and anxious. HEENT: Normocephalic, EOMI, oral mucosa moist. Cardiovascular: Rate and rhythm are regular. Respiratory: Lungs clear to auscultation in all garces. Non-labored breathing. Tolerating room air. Abdomen: Soft, non-tender, non-distended, bowel sounds present. Extremities: Right upper thigh edematous, erythematous, indurated, exquisitely tender to even light touch. Left groin site from cath yesterday with no evidence of infection. Neuro: No focal neurological deficits. Speech is clear. Objective Data Vital Signs Vital Signs: Last Vital Signs Temp 98.3 F 11/29/19 11:42 Pulse 80 11/29/19 11:42 Resp 16 11/29/19 11:42 BP 147/76 H 11/29/19 11:42 Pulse Ox 97 11/29/19 11:42 Intake/Output Intake/Output: Intake & Output 11/26/19 11/27/19 11/28/19 11/29/19 23:59 23:59 23:59 23:59 In
--- NOTE | 2019-11-29 12:03 | WPDANESEPPF ---
Anes - Initial Pre Proc Eval Procedure: Operation Date: 11/28/19 10:00 Proposed Procedures p Left Heart Cath - Zach Ibrahim MD Operation Date: 11/29/19 12:30 Proposed Procedures p Incision and Drainage Right Groin Abscess(Right) - Héctor Coyne DO Date/Time: 11/29/19 12:03 Surgeon: JULIANE Rubin Pre Op Diagnosis: right upper leg cellulitis Patient Data Age: 64 Gender: M Height: 5 ft 9 in Weight: 109.8 kg Last Vital Signs Temp 36.8 C 11/29/19 11:42 Pulse 80 11/29/19 11:42 Resp 16 11/29/19 11:42 BP 147/76 H 11/29/19 11:42 Pulse Ox 97 11/29/19 11:42 Allergies Allergy/AdvReac Type Severity Reaction Status Date / Time latex Allergy Hives Verified 11/28/19 16:14 Home Medications Medication Instructions Recorded Confirmed Type trazodone 50 mg PO HS 10/18/19 11/25/19 History aspirin 81 mg PO QAM #30 tablet 10/28/19 11/25/19 Rx simvastatin 40 mg PO QAM #30 tablet 10/28/19 11/25/19 Rx hydrocodone-acetaminophen 5 - 325 tablet PO TID PRN 11/25/19 11/28/19 History losartan 25 mg PO DAILY 11/25/19 11/25/19 History pantoprazole 40 mg PO DAILY 11/25/19 11/25/19 History cephalexin [Keflex] 500 mg PO Q6H 10 Days #40 cap 11/27/19 11/28/19 Rx metoprolol succinate [Toprol XL] 50 mg PO DAILY #30 tablet 11/27/19 11/28/19 Rx calcium carbonate-vitamin D3 600 cap PO DAILY 11/28/19 11/28/19 History [Calcium 600 with Vitamin D3] Laboratory Tests 11/28/19 11/29/19 11/29/19 19:11 05:16 05:16 WBC 7.2 K/mm3 K/mm3 (4.5-10.0) RBC 3.31 M/mm3 L M/mm3 (4.6-6.20) Hgb 9.8 g/dL L g/dL (14.0-18.0) Hct 30.9 % L % (42.0-52.0) MCV 93.4 fl fl (80-100) MCH 29.6 pg pg (26-34) MCHC 31.7 g/dl L g/dl (32-36) RDW 15.4 % H % (11.5-14.5) Plt Count 426 k/mm3 H k/mm3 (150-375) MPV 8.8 fl fl (7.4-10.4) Sodium 134 mmol/L L mmol/L (137-145) Potassium 3.9 mmol/L mmol/L (3.4-5.0) Chloride 101 mmol/L mmol/L (98-107) Carbon Dioxide 30 mmol/L mmol/L (22-30) Anion Gap 3 mmol/L L mmol/L (8-16) BUN 9 mg/dL mg/dL (9-20) Creatinine 0.80 mg/dL mg/dL (0.7-1.3) Estim Creat Clear Calc 98 ml/min ml/min Estimated GFR > 60 (59 - ) Glucose 118 mg/dL H mg/dL (75-110) Hemoglobin A1c Calcium 8.1 mg/dL L mg/dL (8.4-10.2) Total Bilirubin 0.3 mg/dL mg/dL (0.2-1.3) AST 21 U/L U/L (17-59) ALT 24 U/L U/L (4-50) Alkaline Phosphatase 133 U/L H U/L (38-126) C-Reactive Protein 24.9 mg/dL H mg/dL 24.0 mg/dL H mg/dL (<1.0) (<1.0) Total Protein 6.0 g/dL L g/dL (6.3-8.2) Albumin 2.7 g/dL L g/dL (3.5-5.1) 11/29/19 05:16 WBC RBC Hgb Hct MCV MCH MCHC RDW Plt Count MPV Sodium Potassium Chloride Carbon Dioxide Anion Gap BUN Creatinine Estim Creat Clear Calc Estimated GFR Glucose Hemoglobin A1c 4.8 % % (<5.7) Calcium Total Bilirubin AST ALT Alkaline Phosphatase C-Reactive Protein Total Protein Albumin Patient hx anesthesia problems: none Family hx anesthesia problems: none PMFSH Past Medical History Medical History Cardiac arrest with successful resuscitation (~10/17/19) Patient experienced out of hospital ventricular fibrillation arrest successful resuscitation. Echocardiogram and cardiac catheterization were unremarkable. On LifeVest as of 11/28/2019. Essential hypertension Gastroesophageal reflux disease Hyperlipidemia Surgical History Surgical History History of bilateral inguinal
--- NOTE | 2019-11-29 12:08 | WPDHPUPDATE1 ---
History and Physical Update Update Date/Time: 11/29/19 12:08 History and Physical has been reviewed, including an updated exam of the patient. There are NO changes in the patient's condition. Risks, benefits, and alternatives have been discussed and questions answered. Patient agrees to proceed with procedure.
[2019-11-29] MEDS: LACTATED RINGERS 1,000 ML 30 ML IV CONT (12:09)
[2019-11-29] MEDS: BUPIVACAINE/EPINEPHRINE 0.5% 10 ML VIAL INFILTRATE (12:46)
--- NOTE | 2019-11-29 12:56 | P.OP_ITS ---
Procedure Note - Detailed Date of procedure: 11/29/19 Pre-op diagnosis: Right groin abscess Post-op diagnosis: same Procedure performed: Incision and drainage of right groin abscess Description of procedure: * Procedure as well as risks, benefits, and alternatives were discussed with the patient. Written consent was obtained and placed in chart prior to procedure. Patient was brought back to surgical suite. He was placed supine on operating table. General anesthesia was administered via LMA by the anesthesia department. His right groin area was prepped and draped in sterile fashion using Betadine prep. 0.5% bupivacaine with epinephrine was infiltrated locally around the area of swelling and fluctuance. A 3 cm oblique incision was made over this area using a 15 blade scalpel. Blunt dissection was carefully performed down to the level of fluctuance and the abscess cavity was entered. Approximately 500 mL of purulence fluid was drained. Loculations were broken up from within the abscess cavity. The abscess cavity measured approximately 15 cm wide. Decision was made to place a 19 round Abdiaziz drain within this area to continue to drain the infection. The drain was placed through a counter incision just inferior to the incision and the drain was cut to appropriate length and placed within the abscess cavity. The drain was secured in place using the 3 0 nylon drain stitch. The skin edges were then approximated using for 0 nylon simple interrupted sutures. 4 x 4 gauze and Medipore tape was then applied. The patient was then awakened from anesthesia and transferred to recovery. Anesthesia: GLMA and local (0.5% bupivacaine with epinephrine) Surgeon: Héctor Coyne DO Estimated blood loss (mL): 5 Drains: Yes (19 round Abdiaziz) Complications: No immediate complications Condition: stable Disposition: floor Findings: * Incision and drainage of right groin abscess was performed. The patient had a large amount of purulence within the right groin region. Approximately 500 mL of dark bryson purulence fluid was drained from the abscess cavity. Cultures were taken for aerobic and anaerobic culture and sensitivity. The abscess cavity tracked out lateral towards the hip and also tract medial further down into the groin. Decision was made to place a 19 round Abdiaziz drain within the abscess cavity. The drain was placed and then the skin incision was closed using 4 O nylon simple interrupted sutures.
--- NOTE | 2019-11-29 13:11 | SUR.PHASEI ---
1258; PT ARRIVED INTO PACU PER BED WITH CARDIAC VEST ON. TANO HUNTLEY STATES DEFIB VEST IS ON AND WORKING.
--- NOTE | 2019-11-29 14:09 | SUR.PHASEI ---
PT AWAKE AND ALERT. RESTING QUIETLY. DENIES PAIN OR NAUSEA. MEETS DISCHARGE CRITERIA
[2019-11-29] MEDS: ACETAMINOPHEN 325 MG TABLET 650 MG PO (15:26)
--- NOTE | 2019-11-29 15:29 | PC.NURSE ---
Patient tolerated clear liquid diet with no problems.
--- NOTE | 2019-11-29 19:28 | PC.NURSE ---
Patient son Yolette voiced that he will bring in patient s hoe medications tommmorow. Notified night nurse of the same.
[2019-11-29] MEDS: traZODone HCL 50 MG TABLET PO (22:00)
[2019-11-29] MEDS: MORPHINE SULFATE (*CRX) 2 MG/ML INJ IV PUSH (22:05)
[2019-11-30] VITALS (8 sets, daily range): BP systolic 134–145; BP diastolic 72–76; PULSE 80–94; RESP 16–20; TEMP 36.5–37.1; O2SAT 98; BMI 35.6
[2019-11-30] MEDS: HYDROcodone/acetaminophen (*CRX) 7.5-325 MG TABLET 1 TAB PO (02:07)
[2019-11-30 05:06] LABS: Basophils Percent Auto 0.5 % (0.2-1.2); Eosinophils Absolute Auto 0.1 K/mm3 (0-0.3); Eosinophils Percent Auto 1.3 % (0-4.4); Hematocrit 33.1 % (42.0-52.0); Hemoglobin 10.3 g/dL (14.0-18.0); Immature Granulocyte Absolute 0.07 K/mm3 (0.00-0.031); Immature Granulocyte Percent A 0.9 % (0-0.5); Lymphocytes Absolute Auto 0.57 K/mm3 (0.9-3.2); Lymphocytes Percent Auto 7.7 % (18.3-44.2); Mean Corpuscular HGB Conc 31.1 g/dl (32-36); Mean Corpuscular Hemoglobin 29.4 pg (26-34); Mean Corpuscular Volume 94.6 fl (80-100); Mean Platelet Volume 8.8 fl (7.4-10.4); Monocytes Absolute Auto 0.6 K/mm3 (0.1-0.6); Monocytes Percent Auto 8.5 % (2.6-8.5); Neutrophils Percent Auto 81.1 % (45.5-73.1); Platelet Count Result 514 k/mm3 (150-375); Red Cell Distribution Width 15.3 % (11.5-14.5); White Blood Count 7.4 K/mm3 (4.5-10.0)
[2019-11-30 05:18] LABS: Anion Gap 5 mmol/L (8-16); Blood Urea Nitrogen 10 mg/dL (9-20); Calcium 8.1 mg/dL (8.4-10.2); Carbon Dioxide 30 mmol/L (22-30); Chloride 101 mmol/L (98-107); Estimated CRCL calculation 89 ml/min; Estimated Glomerular Filt Rate > 60; Glucose 113 mg/dL (75-110); Magnesium 2.1 mg/dL (1.6-2.3); Potassium 3.9 mmol/L (3.4-5.0); Sodium 136 mmol/L (137-145)
[2019-11-30] MEDS: MORPHINE SULFATE (*CRX) 2 MG/ML INJ IV PUSH (05:21)
[2019-11-30] MEDS: HYDROcodone/acetaminophen (*CRX) 5-325 MG TABLET 1 TAB PO (09:15)
[2019-11-30] MEDS: SIMVASTATIN 20 MG TABLET 40 MG PO (09:16)
[2019-11-30] MEDS: PANTOPRAZOLE 40 MG TABLET PO (09:16)
[2019-11-30] MEDS: LOSARTAN POTASSIUM 25 MG TABLET PO (09:16)
[2019-11-30] MEDS: METOPROLOL SUCCINATE EXT REL 50 MG TABCR PO (09:16)
--- NOTE | 2019-11-30 11:49 | PM.PNCARD ---
Progress Note: A&P Assessment and Plan (1) History of cardiac arrest: Code(s): Z86.74 - Personal history of sudden cardiac arrest Status: Chronic Assessment and Plan: continue life vest. Patient will need an ICD at this point since he has no coronary disease. This will be on hold though until his leg/groin situation is adequately treated. (2) Essential hypertension: Code(s): I10 - Essential (primary) hypertension Status: Chronic Assessment and Plan: Continue metoprolol (3) Groin hematoma: Onset Date: ~10/23/19 Qualifiers: Encounter type: initial encounter Qualified Code(s): S30.1XXA - Contusion of abdominal wall, initial encounter Code(s): S30.1XXA - Contusion of abdominal wall, initial encounter Status: Acute Assessment and Plan: from a previous art line. status post I and D. Awaiting cultures (4) Hyperlipidemia: Qualifiers: Hyperlipidemia type: unspecified Qualified Code(s): E78.5 - Hyperlipidemia, unspecified Code(s): E78.5 - Hyperlipidemia, unspecified Status: Chronic Assessment and Plan: continue statin Subjective Date/time seen: 11/30/19 11:49 Interval history: Mr. Funes is a 64yo M admitted for an infected right thigh hematoma. date of service 11/30/2019: Feels much better. 500 cc of purulent drainage was removed from his right upper thigh /groin area. Drain is still in place. Wants to go home. Denies chest pain or shortness of breath. Review of Systems Review of Systems: All systems reviewed & are unremarkable except as noted in HPI and below Constitutional: Constitutional: Denies chills, Denies fatigue and Denies headache(s) Eyes: Eyes: Denies blurry vision ENT: Reports Normal hearing present, Denies headache(s) and Denies neck pain Cardiovascular: Cardiovascular: Denies chest pain, Reports pedal edema and Denies dyspnea Respiratory: Respiratory: Denies dyspnea Gastrointestinal: Gastrointestinal: Denies abdominal pain Genitourinary: Genitourinary: Denies dysuria and Denies urinary frequency Musculoskeletal: Musculoskeletal: Denies back pain and Denies neck pain Integumentary/Breasts: Skin/Breast: Reports erythema Neurologic: Reports Normal hearing present and Denies headache(s) Psychiatric: Psychiatric: Denies anxiety Endocrine: Endocrine: Denies fatigue Hematologic/Lymphatic: Hematologic/Lymphatic: Denies easy bleeding Allergic/Immunologic: Allergic/Immunologic: Denies GI upset with certain foods Exam Narrative: Exam Narrative: patient is awake and alert and oriented and Feels much better Const: General: cooperative HENMT: General nose exam: Normal nares present and no epistaxis Eyes: Sclera: sclerae normal Neck: Neck: supple and no JVD Chest: Other: no reproducible chest wall pain to palpation Resp: Auscultation: clear to auscultation bilaterally Cardio: Rate: regular rate Rhythm: regular rhythm Skin: General skin exam: erythema Other: right thigh has a dressing in place. Drain in place Neuro: Cranial nerves: Yes Normal hearing present Cognition (Neuro): normal cognition Speech: normal speech Extrem: General: edema ( mild lower extremity edema involving the right lower leg. ) Other: right upper thigh edema Psych: Affect: normal affect Objective Data Vital Signs Vital Signs: Vital Signs - 24 hr 11/29/19 12:58 11/29/19 13:15 11/29/19 13:30 Temperature 36.3 C L Pulse Rate 83 80 80 Respiratory Rate 20 20 16 Blood Pressure 123/74 124/73 117/71 Pulse Oximetry 100 100 95 11/29/19 13:45 11/29/19 14:00 11/29/19 14:14 Temperature 36.6 C Pulse Rate 78 82 81 Respiratory Rate 16 20 16 Blood Pressure 120/71 119/70 137/85 Pulse Oximetry 96 95 100 11/29/19 14:45 11/29/19 15:22 11/29/19 15:30 Temperature 36.6 C 36.6 C Pulse Rate 83 87 Respiratory Rate 16 18 Blood Pressure 134/80 128/69 Pulse Oximetry 97 94 96
--- NOTE | 2019-11-30 13:20 | PM.IMPN ---
Progress Note: A&P Assessment and Plan (1) Groin hematoma: Onset Date: ~10/23/19 Qualifiers: Encounter type: initial encounter Qualified Code(s): S30.1XXA - Contusion of abdominal wall, initial encounter Code(s): S30.1XXA - Contusion of abdominal wall, initial encounter Status: Acute Assessment and Plan: Large infected hematoma at site of previous femoral art line from about 1 mo ago. Now POD#1 s/p incision and drainage by Dr Coyne. Improved today. Continue IV Ancef (day 3) and monitor. (2) Cellulitis of right thigh: Code(s): L03.115 - Cellulitis of right lower limb Status: Acute Assessment and Plan: Secondary to above. (3) History of cardiac arrest: Code(s): Z86.74 - Personal history of sudden cardiac arrest Status: Chronic Assessment and Plan: Patient was successfully resuscitated after out of hospital V fib arrest 1 month ago. Noninvasive coronary workup unremarkable. He presented 11/27 for elective cardiac cath which was also unremarkable. Admitted now due to concerns with the R thigh hematoma. Cardiology following - appreciate recommendations. For now he will continue LifeVest, follow-up with cardiology outpatient with plan for ICD in the future. (4) Essential hypertension: Code(s): I10 - Essential (primary) hypertension Status: Chronic Assessment and Plan: Stable maintained on his home Cozaar, metoprolol. Her BP and adjust treatment as needed. (5) Hyperlipidemia: Qualifiers: Hyperlipidemia type: unspecified Qualified Code(s): E78.5 - Hyperlipidemia, unspecified Code(s): E78.5 - Hyperlipidemia, unspecified Status: Chronic Assessment and Plan: Maintained on statin therapy. (6) Acute blood loss anemia: Code(s): D62 - Acute posthemorrhagic anemia Status: Acute Assessment and Plan: With hematoma. H&H low but stable today, will monitor. (7) Suspected sleep apnea: Code(s): R29.818 - Other symptoms and signs involving the nervous system Status: Acute Assessment and Plan: Apnea Link from last night is mildly positive; would recommend follow up with outpatient sleep study. Follow up with PCP. Discussed this patient this afternoon. Subjective Date/time seen: 11/30/19 1200 Interval history: Mr. Funes is a 64yo M admitted for an infected right thigh hematoma. He is feeling much better today than yesterday. He notes his pain is 90% improved today and is much more comfortable. He denies chest pain or shortness of breath. He is tolerating oral intake without nausea. Review of Systems Review of Systems: Narrative: Twelve systems were reviewed with pertinent positives and negatives as per HPI. Exam Narrative: Exam Narrative: General: Male resting sitting up in bed in no acute distress. HEENT: Normocephalic, EOMI, oral mucosa moist. Cardiovascular: Rate and rhythm are regular. Respiratory: Lungs clear to auscultation in all garces. Non-labored breathing. Tolerating room air. Abdomen: Soft, non-tender, non-distended, bowel sounds present. Extremities: Right upper thigh drainage intact draining serosanguineous fluid; overlying dressing is clean, dry, intact. Left groin site from cath yesterday with no evidence of infection. Neuro: No focal neurological deficits. Speech is clear. Objective Data Vital Signs Vital Signs: Last Vital Signs Temp 97.7 F 11/30/19 05:11 Pulse 82 11/30/19 12:00 Resp 20 11/30/19 05:11 BP 145/76 H 11/30/19 05:11 Pulse Ox 98 11/30/19 05:11 Intake/Output Intake/Output: Intake & Output 11/27/19 11/28/19 09
--- NOTE | 2019-11-30 13:27 | WPDANESPN ---
Anes - Prog Note Post-Op Date/Time: 11/30/19 13:27 Cardiovascular status: normal Respiratory status: normal Airway patency: baseline Mental status: baseline Post-Op hydration status: normal Vital Signs: Last Vital Signs Temp 36.5 C 11/30/19 05:11 Pulse 82 11/30/19 12:00 Resp 20 11/30/19 05:11 BP 145/76 H 11/30/19 05:11 Pulse Ox 98 11/30/19 05:11 Pain Score (VAS): 0/10. Patient resting in bed at time of assessment, appears comfortable at time of assessment. No additional questions or concerns at time of assessment. I/O: Intake & Output 11/29/19 11/30/19 11/30/19 23:59 07:59 15:59 Intake Total 590 650 600 Output Total 740 150 Balance -150 500 600 Laboratory Tests 11/30/19 04:52 11/30/19 04:52 11/30/19 11/30/19 04:52 04:52 WBC 7.4 RBC 3.50 L Hgb 10.3 L Hct 33.1 L MCV 94.6 MCH 29.4 MCHC 31.1 L RDW 15.3 H Plt Count 514 H MPV 8.8 Immature Gran % (Auto) 0.9 H Neut % (Auto) 81.1 H Lymph % (Auto) 7.7 L Haywood % (Auto) 8.5 Eos % (Auto) 1.3 Baso % (Auto) 0.5 Lymph # (Auto) 0.57 L [place] # (Auto) 0.6 Eos # (Auto) 0.1 Baso # (Auto) 0.0 Abs Immat Gran (auto) 0.07 H Absolute Neuts (auto) 6.0 Absolute Nucleated RBC 0.0 Nucleated RBC % 0.0 Sodium 136 L Potassium 3.9 Chloride 101 Carbon Dioxide 30 Anion Gap 5 L BUN 10 Creatinine 0.90 Estim Creat Clear Calc 89 Estimated GFR > 60 Glucose 113 H Calcium 8.1 L Magnesium 2.1 Microbiology 11/29/19 12:38 Abscess Anaerobic Culture - Preliminary 11/28/19 19:11 Blood Blood Culture - Preliminary 11/28/19 19:11 Blood Blood Culture - Preliminary Post-procedural complaints: none Patient Feedback: Patient satisfied with anesthetic care.
--- NOTE | 2019-11-30 15:04 | PM.PNGS ---
Progress Note: A&P Assessment and Plan (1) Abscess of right groin: Code(s): L02.214 - Cutaneous abscess of groin Status: Acute Assessment and Plan: Continue drain care OK to discharge from surgical standpoint. Cultures still pending, OK to continue current antibiotics and will adjust based on sensitivities. (2) Groin hematoma: Onset Date: ~10/23/19 Qualifiers: Encounter type: initial encounter Qualified Code(s): S30.1XXA - Contusion of abdominal wall, initial encounter Code(s): S30.1XXA - Contusion of abdominal wall, initial encounter Status: Acute Subjective Subjective Date/Time Seen: 11/30/19 15:04 Pain improved. No fevers. Minimal drainage. Exam Skin: Other: ALTHEA drain with minimal serosanguinous drainage. Dressing dry. Objective Data Vital Signs Vital Signs: Vital Signs - 24 hr 11/29/19 15:22 11/29/19 15:30 11/29/19 20:00 Temperature 36.6 C 36.9 C Pulse Rate 87 79 Respiratory Rate 18 16 Blood Pressure 128/69 137/82 Pulse Oximetry 94 96 98 11/30/19 00:00 11/30/19 00:08 11/30/19 04:00 Temperature 37.1 C Pulse Rate 87 87 82 Respiratory Rate 17 Blood Pressure 139/74 Pulse Oximetry 98 11/30/19 05:11 11/30/19 08:00 11/30/19 09:16 Temperature 36.5 C Pulse Rate 83 93 94 Respiratory Rate 20 Blood Pressure 145/76 H Pulse Oximetry 98 11/30/19 12:00 Temperature Pulse Rate 82 Respiratory Rate Blood Pressure Pulse Oximetry Intake/Output Intake/Output: Intake & Output 11/27/19 11/28/19 11/29/19 11/30/19 23:59 23:59 23:59 23:59 Intake Total 580 1390 1300 Output Total 1965 150 Balance 580 -575 1150 Meds/Results Medications: Active Medications Generic Name Dose Route Start Last Admin Trade Name Freq PRN Reason Stop Dose Admin Acetaminophen 650 mg 11/29/19 15:20 11/29/19 15:26 Tylenol Tablet PO 650 mg Q6H PRN Administration Mild Pain (1-3) or Fever Hydrocodone Bitart/Acetaminophen 1 tab 11/29/19 14:14 09/23/20 09:15 Jena 5-325 Mg PO 1 tab Q4H PRN Administration Pain Rated 4-6 Hydrocodone Bitart/Acetaminophen 1 tab 11/29/19 14:14 11/30/19 02:07 Jena 7.5-325 Mg PO 1 tab Q4H PRN Administration Pain Rated 7-10 Calcium Carbonate 500 mg 11/29/19 09:00 11/30/19 09:13 Os-Marvin 500 +D Tablet PO 500 mg QAM BALA Administration Cefazolin Sodium 1 gm in 50 mls @ 100 mls/hr 11/28/19 16:00 11/30/19 15:03 Ancef 1 Gm/D5w 50 Ml Pm IVPB Infused Q8HR BALA Infusion Losartan Potassium 25 mg 11/29/19 09:00 11/30/19 09:16 Cozaar PO 25 mg DAILY BALA Administration Metoprolol Succinate 50 mg 11/29/19 09:00 11/30/19 09:16 Toprol Xl PO 50 mg DAILY BALA Administration Morphine Sulfate 2 mg 11/29/19 14:14 11/30/19 05:21 Morphine Sulfate Inj (*Crx) IV PUSH 2 mg Q2H PRN Administration Pain Rated 4-6 Morphine Sulfate 4 mg 11/29/19 14:14 Morphine Sulfate Inj (*Crx) IV PUSH Q2H PRN Pain Rated 7-10 Ondansetron HCl 4 mg 11/29/19 14:14 Zofran Inj IV PUSH Q4H PRN Nausea And Vomiting Pantoprazole Sodium 40 mg 11/29/19 09:00 11/30/19 09:16 Protonix PO 40 mg DAILY BALA Administration Simvastatin 40 mg 11/29/19 09:00 11/30/19 09:16 Zocor PO 40 mg QAM BALA Administration Trazodone HCl 50 mg 11/28/19 21:00 11/29/19 22:00 Desyrel PO 50 mg HS BALA Administration Radiology Results: ITS Impressions Soft Tissue Ultrasound 11/28/19 17:03 IMPRESSION: 1. Complex fluid collection of the right thigh likely reflecting infected hematoma/abscess. Surgical consultation is recommended. Labs Labs: Laboratory Results - last 24 hr 11/30/19 11/30/19 04:52 04:52 WBC 7.4 RBC 3.50 L Hgb 10.3 L Hct 33.1 L MCV 94.6 MCH 29.4 MCHC 31.1 L RDW 15.3 H Plt Count 514 H MPV 8.8 Immature Gran % (Auto) 0.9 H Neut % (Auto) 81.1 H Lymph % (Auto)
--- NOTE | 2019-11-30 15:25 | PM.DS ---
DS: Admitting Diagnosis Admitting Diagnosis Admitting Diagnosis: Right groin abscess DS: Discharge Diagnosis Discharge Diagnosis (1) Groin hematoma: Onset Date: ~10/23/19 Qualifiers: Encounter type: initial encounter Qualified Code(s): S30.1XXA - Contusion of abdominal wall, initial encounter Code(s): S30.1XXA - Contusion of abdominal wall, initial encounter Status: Acute Assessment and Plan: Date of Admission: 11/28/19 Date of Discharge/DOS: 11/30/19 Mr. Funes is a 64yo M who was directly admitted to the hospitalist [facility] status post cardiac catheterization for further treatment and evaluation of pain, swelling and redness to right thigh at the site of a previous femoral arterial line. He is known to have recently been admitted to [facility] 10/17/19 after successful resuscitation of an out of hospital ventricular fibrillation arrest, after which he has made a good recovery. After an extensive workup, the etiology of his arrest is still unknown and was not felt to be related to an acute ND or acute coronary syndrome with no wall motion abnormalities on echocardiogram. At that time, he developed a large hematoma at the site of a right femoral arterial line, sustaining pretty significant blood loss, and cardiac catheterization was deferred. He has been wearing LifeVest since that time. He returned 11/27 for outpatient elective cardiac catheterization which was essentially unremarkable, however he has experienced worsening pain and swelling of the hematoma to right thigh and is now admitted in this setting. Cardiology describes he will need an ICD at some point in the near future once his leg is adequately treated. He was started on IV antibiotics with ancef. Imaging with ultrasound demonstrated complex fluid collection of the right thigh likely reflecting infected hematoma/abscess. General surgery was consulted and he underwent I&D by Dr Coyne 11/29/19. During the procedure, Dr Coyne noted 500mL of purulent fluid drainage and described tracking laterally towards the hip and tracking also medially further down to the groin. 19 round Abdiaziz drain was placed during the procedure. Patient is feeling remarkably better the following day. He will follow up with Dr Coyne's office in a few days for drain removal. Fluid cultures were sent and are pending at discharge, will monitor after discharge until final and change antibiotics if needed. Discharged with oral doxycycline and cephalexin. He is hemodynamically stable for discharge 11/30/19 with instructions for short-interval follow up with surgery and cardiology. Large infected hematoma at site of previous femoral art line from about 1 mo ago. Now POD#1 s/p incision and drainage by Dr Coyne. Improved today. Treated with IV ancef while hospitalized, discharged with oral doxy and Keflex. Will monitor wound and blood cultures until final. Blood cultures are no growth to date. (2) Cellulitis of right thigh: Code(s): L03.115 - Cellulitis of right lower limb Status: Acute Assessment and Plan: Secondary to above. (3) History of cardiac arrest: Code(s): Z86.74 - Personal history of sudden cardiac arrest Status: Chronic Assessment and Plan: Patient was successfully resuscitated after out of hospital V fib arrest 10/17/19. Noninvasive coronary workup unremarkable. He presented 11/27 for elective cardiac cath which was also unremarkable. Admitted now due to concerns with the R thigh hematoma. For now he will continue LifeVest, follow-up with cardiology outpatient with plan for ICD in the future. (4) Essential hypertension: Code(s): I10 - Essential (primary) hypertension Status: Chronic
--- NOTE | 2019-12-05 14:51 | PC.NURSE ---
Blood cx are negative
== END 2019-11-30 15:52 | disposition home health service (06) | DRG 603 ==
LOC: ANHCATHLAB 14:39 → ANH3MED 15:19
PROVIDERS: Physician Assistant; Specialist; Surgery; Admitting Provider Family Medicine; Visit Provider Family Medicine
PROC: 4A023N7 Measurement of Cardiac Sampling and Pressure, Left Heart, Percutaneous Approach (ICD-10-PCS; CPT 93452; principal; 2019-11-28 10:00)
PROC: 4A023N7 Measurement of Cardiac Sampling and Pressure, Left Heart, Percutaneous Approach (ICD-10-PCS; 2019-11-28 10:00)
PROC: 4A023N7 Measurement of Cardiac Sampling and Pressure, Left Heart, Percutaneous Approach (ICD-10-PCS; 2019-11-28 10:00)
PROC: 0H9AXZX Drainage of Inguinal Skin, External Approach, Diagnostic (ICD-10-PCS; principal; 2019-11-29 12:30)
DX: L02.214 Cutaneous abscess of groin (principal); L76.32 Postprocedural hematoma of skin and subcutaneous tissue following other procedure; L03.115 Cellulitis of right lower limb; D62 Acute posthemorrhagic anemia; Z86.74 Personal history of sudden cardiac arrest; I10 Essential (primary) hypertension; E78.5 Hyperlipidemia, unspecified; K21.9 Gastro-esophageal reflux disease without esophagitis; R29.818 Other symptoms and signs involving the nervous system; Z79.82 Long term (current) use of aspirin; Z79.899 Other long term (current) drug therapy; Z87.891 Personal history of nicotine dependence
CPT/HCPCS: 36415; 75710; 76882; 80048; 80053; 83036; 83735; 85025; 85027; 85610; 86140; 87040; 87070; 87075; 87147; 87186; 87205; 93458; 94762; 96365; 96366; 96375; A9270; C1760; C1887; C1894; G0269; G0378; J0690; J1644; J2250; J2270; J2704; J3010; J7040; J7120

== ENCOUNTER 2019-12-12 10:38 | Emergency (ER) | payer MEDICARE, OTHER, SELFPAY ==
[2019-12-12] VITALS (38 sets, daily range): BP systolic 127–168; BP diastolic 85–104; PULSE 84–204; RESP 11–29; TEMP 36.6–36.7; O2SAT 97–100
--- NOTE | ~2019-12-12 | XR_ITS ---
XR chest 1V portable DATE: 12/12/2019 11:37 INDICATION: Palpitations. Supraventricular tachycardia. TECHNIQUE: Portable AP chest on 12/12/2019 at 1125 hours COMPARISON: 11/27/2019 portable AP chest at 0131 hours FINDINGS: Heart size appears within normal limits considering magnification associated with AP projec tion. No pulmonary consolidation, pleural effusion, pulmonary vascular congestion or pneumothorax is evident. There is aortic arch calcification. Diffuse osteopenia. Bilateral rotator cuff atrophy is present. There is osteoarthritic change at the left glenohumeral joint. IMPRESSION: No active cardiopulmonary disease Reviewed, dictated and finalized at location A.
--- NOTE | 2019-12-12 10:50 | ECG_ITS ---
Measurements Intervals [place] Rate: 122 P: 36 VA: 147 QRS: 67 QRSD: 97 T: 42 QT: 281 QTc: 401 Interpretive Statements SINUS TACHYCARDIA INCOMPLETE RIGHT BUNDLE BRANCH BLOCK ABNORMAL ECG Electronically Signed On 12-13-2019 12:04:40 CDT by Torrey Guzmán D.O.
--- NOTE | 2019-12-12 10:53 | PC.NURSE ---
PT'S ZOLL SHOCKED HIM [address] JIMENES AT BEDSIDE PRIOR TO BATTERY BEING TAKEN OUT AND PT BEING PLACED ON ER DEFIB/MONITOR.
[2019-12-12] MEDS: ADENOSINE IV SOLN 6 MG/2 ML VIAL 18 MG (10:54)
--- NOTE | 2019-12-12 10:54 | PC.NURSE ---
NS INITIATED AND ADENOSINE 6MG IVP PER DR JIMENES VERBAL ORDER
--- NOTE | 2019-12-12 10:55 | ECG_ITS ---
Measurements Intervals [place] Rate: 204 P: IN: 0 QRS: 3 QRSD: 92 T: 43 QT: 215 QTc: 396 Interpretive Statements SUPRAVENTRICULAR TACHYCARDIA INCOMPLETE RIGHT BUNDLE BRANCH BLOCK NONSPECIFIC ST & T-WAVE ABNORMALITY- ANTERIOR LEADS, PROBABLY RATE RELATED ABNORMAL ECG Electronically Signed On 12-13-2019 12:04:21 CDT by Torrey Guzmán D.O.
--- NOTE | 2019-12-12 10:57 | ED.ARRPALP ---
HPI - Arrhythmia/Palpitations General Chief Complaint: Arrhythmia/Palpitations Stated Complaint: life vest alarming Time Seen by Provider: 12/12/19 10:57 Source: patient Mode of arrival: ambulatory Limitations: no limitations History of Present Illness HPI narrative: Patient is a 64-year-old male with a history of recent hospitalization status post cardiac arrest, who arrived to our facility as a walk-in, LifeVest/defibrillator delivering shocks to patient. Patient states that this morning he was in his usual state of health and feeling well after breakfast when he felt palpitations began, and his LifeVest began to alarm. He was then delivered at least 2-4 shocks at home. Patient's attempted to call the internet sales representative office, but they were unable to reach anybody, thus they brought him in via private vehicle to the emergency department for evaluation. Patient had [address] patient on our monitor, rhythm appears narrow complex, regular tachycardia consistent with SVT. Patient is denying any current chest pain other than when the shocks are delivered. Patient states he has been compliant with his medications. Related Data Home Medications Medication Instructions Recorded Confirmed trazodone 50 mg PO HS 10/18/19 12/05/19 hydrocodone-acetaminophen 5 - 325 tablet PO TID PRN 11/25/19 12/05/19 losartan 25 mg PO DAILY 11/25/19 12/05/19 pantoprazole 40 mg PO DAILY 11/25/19 12/05/19 calcium carbonate-vitamin D3 600 cap PO DAILY 11/28/19 12/05/19 [Calcium 600 with Vitamin D3] acetaminophen 325 mg capsule 325 mg PO Q6H PRN 12/05/19 12/05/19 ascorbic acid (vitamin C) 500 mg mg PO 12/05/19 12/05/19 capsule Allergies Allergy/AdvReac Type Severity Reaction Status Date / Time latex Allergy Hives Verified 12/12/19 11:15 Review of Systems Review of Systems: Narrative: CONSTITUTIONAL: Denies fever, chills, or sweats. ENT: Denies rhinorrhea, congestion CARDIOVASCULAR: Denies chest pain, reports palpitations RESPIRATORY: Denies cough or dyspnea. GASTROINTESTINAL: Denies abdominal pain, nausea, vomiting, or diarrhea. GENITOURINARY: Denies dysuria or hematuria. SKIN: Denies rash or itching. MUSCULOSKELETAL: Denies back pain, joint pain, or myalgia. NEUROLOGIC: Denies headache, numbness, or weakness. [facility] Past Medical History Medical History Cardiac arrest with successful resuscitation (~10/17/19) Patient experienced out of hospital ventricular fibrillation arrest successful resuscitation. Echocardiogram and cardiac catheterization were unremarkable. On LifeVest as of 11/28/2019. Essential hypertension Gastroesophageal reflux disease Hyperlipidemia Surgical History Surgical History History of bilateral inguinal hernia repair History of cardiac catheterization (~11/28/19) No angiographic evidence of coronary artery disease with normal left ventricular systolic function. Status post right rotator cuff repair Social History Social History Social History: Primary care physician: Dr. Andrei Claire Cods status: Full Code Smoking packs per day: 1 Smoking cigarettes per day: 20.0 Years smoked: 5 Smoking pack-years: 5.00 Smoking status: Former smoker Tobacco type: cigarettes Second hand tobacco smoke exposure: No Alcohol intake: current Drinks per week: 30 Substance use: never Substance use type: marijuana Other substance usage details: Medical marijuana chocolates. Last use: 10/16/2019 Additional living arrangements comments: Lives in [place] with his of 28 years. He has 3 biologic children and 2 step children who are all adults. 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 Gender identity (if verbalized by the patient): Male Spiritual care concern
[2019-12-12 11:19] LABS: Basophils Absolute Auto 0.1 K/mm3 (0.0-0.1); Basophils Percent Auto 1.6 % (0.2-1.2); Eosinophils Absolute Auto 0.1 K/mm3 (0-0.3); Eosinophils Percent Auto 2.1 % (0-4.4); Hematocrit 45.2 % (42.0-52.0); Hemoglobin 13.7 g/dL (14.0-18.0); Immature Granulocyte Absolute 0.01 K/mm3 (0.00-0.031); Immature Granulocyte Percent A 0.2 % (0-0.5); Lymphocytes Absolute Auto 1.74 K/mm3 (0.9-3.2); Lymphocytes Percent Auto 30.4 % (18.3-44.2); Mean Corpuscular HGB Conc 30.3 g/dl (32-36); Mean Corpuscular Hemoglobin 29.3 pg (26-34); Mean Corpuscular Volume 96.6 fl (80-100); Mean Platelet Volume 8.8 fl (7.4-10.4); Monocytes Absolute Auto 0.6 K/mm3 (0.1-0.6); Monocytes Percent Auto 10.1 % (2.6-8.5); Neutrophils Absolute Auto 3.2 K/mm3 (1.3-6.7); Neutrophils Percent Auto 55.6 % (45.5-73.1); Platelet Count Result 494 k/mm3 (150-375); Red Blood Count 4.68 M/mm3 (4.6-6.20); Red Cell Distribution Width 15.2 % (11.5-14.5); White Blood Count 5.7 K/mm3 (4.5-10.0)
[2019-12-12 11:31] LABS: Anion Gap 13 mmol/L (8-16); Blood Urea Nitrogen 13 mg/dL (9-20); Carbon Dioxide 28 mmol/L (22-30); Chloride 104 mmol/L (98-107); Estimated CRCL calculation 86 ml/min; Estimated Glomerular Filt Rate > 60; Glucose 181 mg/dL (75-110); Potassium 3.7 mmol/L (3.4-5.0); Sodium 145 mmol/L (137-145)
[2019-12-12 11:32] LABS: INR 0.9; Prothrombin Time 11.7 Seconds (11.1-14.7)
[2019-12-12 11:33] LABS: Partial Thromboplastin Time 33.8 SECONDS (22.3-36.8)
[2019-12-12 11:34] LABS: Magnesium 2.1 mg/dL (1.6-2.3)
--- NOTE | 2019-12-12 11:42 | PC.NURSE ---
assumed care of pt at 1115.
--- NOTE | 2019-12-12 20:02 | PC.NURSE ---
Pt notified of updated from [facility] access line that no bed will be available at least until 0000. Pt denies needs at this time.
[2019-12-13] VITALS (102 sets, daily range): BP systolic 132–177; BP diastolic 83–119; PULSE 76–94; RESP 10–34; TEMP 36.4–36.6; O2SAT 95–100
--- NOTE | 2019-12-13 05:32 | PC.NURSE ---
Spoke to Liz, still no beds available at this time.
--- NOTE | 2019-12-13 07:37 | PC.NURSE ---
assumed care from armin escalona at this time, pt asleep in bed, vss.
--- NOTE | 2019-12-13 07:54 | PC.NURSE ---
dietary contacted for tray at this time.
--- NOTE | 2019-12-13 09:24 | PC.NURSE ---
SPOKE WITH DOMINIQUE IN THE ED ABOUT PT SCHEDULED MEDS, SHE STATES SHE WILL SEND THEM UP.
[2019-12-13] MEDS: PANTOPRAZOLE 40 MG TABLET PO (09:49)
[2019-12-13] MEDS: METOPROLOL SUCCINATE EXT REL 50 MG TABCR PO (09:49)
[2019-12-13] MEDS: LOSARTAN POTASSIUM 25 MG TABLET PO (09:50)
[2019-12-13] MEDS: ASPIRIN 81 MG ENTERIC TABLET PO (09:50)
[2019-12-13] MEDS: SIMVASTATIN 20 MG TABLET 40 MG PO (09:50)
--- NOTE | 2019-12-13 10:55 | PC.NURSE ---
NEVAEH JIMENES AT BEDSIDE FOR PT UPDATE.
--- NOTE | 2019-12-13 11:44 | PC.NURSE ---
SPOKE WITH [facility] TRANSFER LINE AT THIS TIME, GIVEN PT UPDATE, THEY STATE THEY ARE STILL WORKING ON A BED.
[2019-12-13] MEDS: oxyCODONE/ACETAMINOPHEN (*CRX) 5-325 MG TABLET 1 TABLET PO (11:48)
--- NOTE | 2019-12-13 12:39 | PC.NURSE ---
SPOKE WITH DIETARY AT THIS TIME, THEY ARE PLACING ORDER FOR HEART HEALTHY DIET.
--- NOTE | 2019-12-13 16:07 | PC.NURSE ---
PER JAIRO FROM THE TRANSFER LINE, PT HAS RECIEVED BED AT [facility], HE WILL BE ROOM IN 1309B. UNIT SEC CALLING FOR EMS AT THIS TIME.
--- NOTE | 2019-12-13 16:08 | PC.NURSE ---
REPORT TO BE CALLED TO [phone].
--- NOTE | 2019-12-13 16:13 | PC.NURSE ---
PT REPORT CALLED TO AGNES HUTTON AT [facility] AT THIS TIME.
--- NOTE | 2019-12-13 18:21 | PC.NURSE ---
HEART HEALTHY DIET ORDERED BY TECH FOR PT.
== END 2019-12-13 18:27 | disposition short-term general hospital (02) ==
PROVIDERS: Emergency Provider Emergency Medicine; PCP Internal Medicine Cardiovascular Disease
DX: I47.1 Supraventricular tachycardia (principal); I10 Essential (primary) hypertension; K21.9 Gastro-esophageal reflux disease without esophagitis; E78.5 Hyperlipidemia, unspecified; Z87.891 Personal history of nicotine dependence; I45.10 Unspecified right bundle-branch block
CPT/HCPCS: 36415; 71045; 80048; 83735; 85025; 85610; 85730; 93005; 96374; 99285; A9270; J0153; J3010; J7030